=== PATIENT | male | born 1950 | race Caucasian/White ===

== ENCOUNTER 2020-02-06 10:24 | Emergency (ER) | payer MEDICARE, OTHER, SELFPAY ==
[2020-02-06 10:29] VITALS: BP 230/97; PULSE 61; RESP 16; TEMP 36.8; O2SAT 99; BMI 27.4
--- NOTE | 2020-02-06 10:37 | CT_ITS ---
WS: [id number] CT HEAD TECHNIQUE: Noncontrast CT of the head obtained from the skullbase to the vertex. CLINICAL INFORMATION: Symptoms of Acute Stroke COMPARISON: None. DLP: 818.[address] scans at [facility] use at least one of these dose optimization techniques: automat ed exposure control; mA and/or kV adjustment per patient size (includes targeted exams where dose is matched to clinical indication); or iterative reconstruction. FINDINGS: No evidence of intracranial hemorrhage or mass effect. Ventricular system and basal cisterns are foster nt. Moderate small vessel changes with moderate parenchymal volume loss. Chronic lacunar infarcts in the periventricular white matter and buenrostro radiata Paranasal sinuses and mastoid air cells are well aerated. Small retention cyst in the sphenoid sinus. .Normal visualized soft tissues. Benign-appearing cisterna magna. Small chronic lacunar infarct left cerebellum. CT/CT head wo con* [id number] IMPRESSION: 1. No evidence of intracranial hemorrhage or mass effect. 2. Moderate small vessel changes with moderate parenchymal volume loss. 3. Chronic lacunar infarcts in the buenrostro radiata bilaterally and left cerebel lum. 4. Benign-appearing cisterna magna. 5. No acute intracranial findings. Message left for Avery Vasquez DO at 02/06/2020 11:18 AM. Not currently available for verbal report.
--- NOTE | 2020-02-06 10:37 | XRR_ITS ---
PROCEDURE INFORMATION: Exam: XR Chest, 1 View Exam date and time: 02/06/2020 11:03 AM Age: 69 years old Clinical indication: Condition or disease; Other: HTN TECHNIQUE: Imaging protocol: XR of the chest Views: 1 view. COMPARISON: No relevant prior studies available. FINDINGS: Lungs: Unremarkable. No consolidation. Pleural space: Unremarkable. No pleural effusion. No pneumothorax. Heart/Mediastinum: Unremarkable. No cardiomegaly. Bones/joints: Unremarkable. XR/XR chest 1V portable [id number] IMPRESSION: No acute findings.
--- NOTE | 2020-02-06 10:37 | ECG_ITS ---
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 Measurements Intervals [place] Rate: 61 P: 46 [place]: 208 QRS: 45 QRSD: 103 T: 69 QT: 364 QTc: 369 Interpretive Statements SINUS RHYTHM NONSPECIFIC T-WAVE ABNORMALITY No previous ECG available for comparison Electronically Signed On 02-06-2020 12:48:25 CDT by Bella Crowell M.D. [id number] f
[2020-02-06 11:02] LABS: Glucose Point of Care 148 mg/dL (70-110)
[2020-02-06 11:17] VITALS: BP 184/89; PULSE 63; RESP 19; O2SAT 97
[2020-02-06 11:21] LABS: Basophils # 0.1 10^3/uL (0.0-0.1); Eosinophils # 0.2 10^3/uL (0.0-0.8); Eosinophils % 2.6 %; Hematocrit 42.1 % (42.0-52.0); Hemoglobin 14.2 g/dL (11.7-16.6); Lymphocytes # 1.5 10^3/uL (0.8-4.8); Lymphocytes % 26.1 %; Mean Corpuscular HGB Conc 33.7 g/dL (30.0-36.0); Mean Corpuscular Hemoglobin 29.8 pg (28.0-34.0); Mean Corpuscular Volume 88.3 fL (80-94); Mean Platelet Volume 8.9 fL (7.4-10.4); Monocytes # 0.4 10^3/uL (0.2-0.9); Monocytes % 7.5 %; Neutrophils # 3.64 10^3/uL (1.8-7.7); Neutrophils % 62.5 %; Nucleated Red Blood Cells % 0 %; Platelet Count 270 10^3/cmm (130-400); Red Blood Count 4.77 10^6/uL (4.1-5.3); Red Cell Distribution Width 12.5 % (12.1-15.1); White Blood Count 5.8 10^3/uL (4.0-10.0)
[2020-02-06 11:24] LABS: INR 0.96 (0.8-1.2)
[2020-02-06 11:25] LABS: Partial Thromboplastin Time 26.5 SECONDS (23.9-36.7)
[2020-02-06 11:29] LABS: Add Urine Microscopic? NO
[2020-02-06 11:30] LABS: Alanine Aminotransferase 19 U/L (0-41); Albumin Level 4.2 g/dL (3.5-5.2); Alkaline Phosphatase 70 IU/L (40-130); Anion Gap 13.9 (5-19); Aspartate Amino Transferase 16 U/L (0-40); Blood Urea Nitrogen 13 mg/dL (8-23); Calcium 9.1 mg/dL (8.5-10.5); Carbon Dioxide 24 mmol/L (22-29); Chloride 103 mmol/L (98-107); Creatinine Clr Calc Pharmacy 77.8716; Globulin 2.5 g/dL (1.3-4.6); Glomerular Filtration Rate 84.2 mL/min (90-130); Glucose 157 mg/dL (65-115); Osmolality Calculated 287 mOsm/kg (285-295); Potassium 3.9 mmol/L (3.5-5.1); Sodium 137 mmol/L (136-145); Total Bilirubin 0.3 mg/dL (0.15-1.2); Total Protein 6.7 g/dL (6.6-8.7)
[2020-02-06 11:32] VITALS: BP 184/89; PULSE 61; RESP 18; O2SAT 97
[2020-02-06 11:32] LABS: Bilirubin Urine Neg (Negative); Blood Urine Neg (Negative); Glucose Urine UA Norm (Normal); Ketones Urine Negative (Negative); Leukocyte Esterase Urine Negative (Negative); Nitrate Urine Negative (Negative); Protein Urine Neg (Negative); Specific Gravity, Urine 1.015 (1.005-1.030); Urine Appearance Clear (CLEAR); Urine Color Straw (Yellow); Urobilinogen Urine Norm (Negative); pH Urine 6 (5-7)
--- NOTE | 2020-02-06 11:38 | ED_ITS ---
HPI - Neuro Symptoms/Deficit General: Chief Complaint: Neuro Symptoms/Deficit Stated Complaint: right arm tingling and numbness Time Seen by Provider: 02/06/20 10:33 History of Present Illness: HPI Narrative: 69-year-old male presents the emergency room with complaint of right arm numbness has had for the last couple of months intermittently with a question of more in depth find that movement of his neck turning his head side to side or up or down actually exacerbates right arm numbness. Yesterday he was at [facility] she is generally felt kind of odd and weird is he describes it in his legs felt weak he stopped and sat down and immediately felt better. He is not had a recurrence of this since. He has very little to no symptoms now. He does have a history of hypertension he supposed to be on antihypertensives but stopped taking them because of side effects. On presentation emergency room he does have accelerated hypertension. Onset (ago): month(s) Location: left arm History of same: Yes Severity: moderate Quality: numb and tingling Relieving factors: none Exacerbating factors: other (sidbending and rotation of the neck) Context: gradual onset Associated symptoms: Deny chest pain, cough, diaphoresis, fevers/chills, headache(s), anorexia, malaise, nausea, seizures, short of breath, syncope, tingling, vertigo, vomiting, weakness or other Treatments Prior to Arrival: none Review of Systems Const: Denies: malaise or diaphoresis ENMT: Denies: throat pain, ear or mastoid pain, nasal discharge or nasal congestion Card: Denies: chest pain or syncope Resp: Denies: dyspnea, productive cough or non-productive cough GI: Denies: nausea or vomiting : Denies: flank pain, dysuria, urinary frequency or urinary urgency Skin/Breast: Denies: rash or pruritus Neuro: Denies: headache(s) or vertigo Physical Exam Const: COMMON NORMALS: no acute distress GENERAL APPEARANCE: cooperative and comfortable ORIENTATION/CONSCIOUSNESS: Yes awake, Yes oriented to person, Yes oriented to place and Yes oriented to time HENMT: COMMON NORMALS: normocephalic, atraumatic, hearing grossly normal bilaterally, external ears normal, EAC's normal, TM's normal bilaterally, Normal nasal mucous membranes and turbinates present, moist oral mucous membranes and oropharynx normal HEAD & SCALP: normocephalic and atraumatic NOSE: Normal nasal mucous membranes and turbinates present EXTERNAL EAR: Yes external ears normal EXTERNAL AUDITORY CANAL: EAC's normal TYMPANIC MEMBRANE: TM's normal bilaterally Eye: COMMON NORMALS: Equal, round and reactive pupils present, EOMs intact bilaterally, conjunctivae normal and no scleral icterus CONJUNCTIVA: Yes conjunctivae normal PUPIL: Yes Equal, round and reactive pupils present Neck/C-Spine: COMMON NORMALS: full ROM, no lymphadenopathy, supple and no JVD OTHER: Positive Spurling's maneuver with reproduction of radicular left arm pain. Lymph: LYMPHATIC: no lymphadenopathy noted and no lymphedema noted Resp: COMMON NORMALS: normal respiratory effort, No retractions, No use of accessory muscles and clear to auscultation bilaterally AUSCULTATION: clear to auscultation bilaterally Cardio: COMMON NORMALS: no JVD, regular rate, regular rhythm and No murmurs present (Cardio) RATE: regular rate RHYTHM: regular rhythm GI: COMMON NORMALS: Soft to palpation and No hepatosplenomegaly present AUSCULTATION: Yes normoactive bowel sounds PALPATION: Yes Soft to palpation, No Tenderness to palpation present (GI), No Guarding due to palpation present (GI) and Yes No hepatosplenomegaly present Extremity: COMMON NORMALS: normal to inspection, capillary refill normal, no clubbing, cyanosis or edema, no calf tenderness and no pedal edema Neuro: SENSORIUM/ORIENTATION: Yes oriented to person, Yes oriented to place and Yes oriented to time Skin: COMMON NORMALS: no rashes or lesions noted GENERAL SKIN EXAM: no rashes or lesions noted Course Vital Signs: Vital signs: Vital Signs Temperature 98.3 F 02/06/20 10:29 Pulse Rate 61 02/06/20 11:56 Respiratory Rate 19 H 02/06/20 11:56 Blood Pressure 168/83 02/06/20 11:56 Pulse Oximetry 97 02/06/20 11:56 MDM - Neuro Symptoms/Deficit MDM Narrative: Medical decision making narrative: He has no focal neurologic deficits at this point. I cannot find anything to score him on the NIH score with us. I do think he has some radicular arm pain is going to need further evaluation of his cervical spine he does have elevated blood pressure and needs to get that controlled better we started him on amlodipine lisinopril follow-up with his primary care doctor within a week to recheck blood pressure also started on aspirin if has recurrence or worsening symptoms return to the emergency room Lab Data: Labs: Lab Results 02/06/20 02/06/20 02/06/20 Range/Units 10:56 11:00 11:00 WBC 5.8 (4.0-10.0) 10^3/ uL RBC 4.77 (4.1-5.3) 10^6/u L Hgb 14.2 (11.7-16.6) g/dL Hct 42.1 (42.0-52.0) % MCV 88.3 (80-94) fL MCH 29.8 (28.0-34.0) pg MCHC 33.7 (30.0-36.0) g/dL RDW 12.5 (12.1-15.1) % Plt Count 270 (130-400) 10^3/c mm MPV 8.9 (7.4-10.4) fL Neut % (Auto) 62.5 % Lymph % (Auto) 26.1 % Wallace % (Auto) 7.5 % Eos % (Auto) 2.6 % Baso % (Auto) 1.0 % Neut # (Auto) 3.64 (1.8-7.7) 10^3/u L Lymph # (Auto) 1.5 (0.8-4.8) 10^3/u L Wallace # (Auto) 0.4 (0.2-0.9) 10^3/u L Eos # (Auto) 0.2 (0.0-0.8) 10^3/u L Baso # (Auto) 0.1 (0.0-0.1) 10^3/u L Nucleated RBC % (a uto) 0 % Nucleated RBCs # 0.0 /100WBC PT 13.10 (12.1-14.9) SECO NDS INR 0.96 (0.8-1.2) APTT 26.5 (23.9-36.7) SECO NDS Sodium (136-145) mmol/L Potassium (3.5-5.1) mmol/L Chloride (98-107) mmol/L Carbon Dioxide (22-29) mmol/L Anion Gap (5-19) BUN (8-23) mg/dL Creatinine (0.7-1.2) mg/dL GFR Calculation (90-130) mL/min Glucose (65-115) mg/dL POC Glucose 148 (70-110) mg/dL Calculated Osmolal ity (285-295) mOsm/k g Calcium (8.5-10.5) mg/dL Total Bilirubin (0.15-1.2) mg/dL AST (0-40) U/L ALT (0-41) U/L Alkaline Phosphata se (40-130) IU/L Total Protein (6.6-8.7) g/dL Albumin (3.5-5.2) g/dL Globulin (1.3-4.6) g/dL Urine Color (Yellow) Urine Appearance (CLEAR) Urine pH (5-7) Ur Specific Gravit y (1.005-1.030) Urine Protein (Negative) Urine Glucose (UA) (Normal) Urine Ketones (Negative) Urine Blood (Negative) Urine Nitrate (Negative) Urine Bilirubin (Negative) Urine Urobilinogen (Negative) mg/dL Ur Leukocyte Alice ase (Negative) Urine Opiates Scre en (Negative) ng/mL Ur Barbiturates Sc reen (Negative) ng/mL Ur Phencyclidine S crn (Negative) ng/mL Ur Amphetamines Sc reen (Negative) ng/mL U Benzodiazepines Scrn (Negative) ng/mL Urine Cocaine Scre en (Negative) ng/mL U Marijuana (THC) Screen (Negative) ng/mL 02/06/20 02/06/20 02/06/20 Range/Units 11:00 11:25 11:25 WBC (4.0-10.0) 10^3/ uL RBC (4.1-5.3) 10^6/u L Hgb (11.7-16.6) g/dL Hct (42.0-52.0) % MCV (80-94) fL MCH (28.0-34.0) pg MCHC (30.0-36.0) g/dL RDW (12.1-15.1) % Plt Count (130-400) 10^3/c mm MPV (7.4-10.4) fL Neut % (Auto) % Lymph % (Auto) % Wallace % (Auto) % Eos % (Auto) % Baso % (Auto) % Neut # (Auto) (1.8-7.7) 10^3/u L Lymph # (Auto) (0.8-4.8) 10^3/u L Wallace # (Auto) (0.2-0.9) 10^3/u L Eos # (Auto) (0.0-0.8) 10^3/u L Baso # (Auto) (0.0-0.1) 10^3/u L Nucleated RBC % (a uto) % Nucleated RBCs # /100WBC PT (12.1-14.9) SECO NDS INR (0.8-1.2) APTT (23.9-36.7) SECO NDS Sodium 137 (136-145) mmol/L Potassium 3.9 (3.5-5.1) mmol/L Chloride 103 (98-107) mmol/L Carbon Dioxide 24 (22-29) mmol/L Anion Gap 13.9 (5-19) BUN 13 (8-23) mg/dL Creatinine 0.9 (0.7-1.2) mg/dL GFR Calculation 84.2 L (90-130) mL/min Glucose 157 H (65-115) mg/dL POC Glucose (70-110) mg/dL Calculated Osmolal ity 287 (285-295) mOsm/k g Calcium 9.1 (8.5-10.5) mg/dL Total Bilirubin 0.3 (0.15-1.2) mg/dL AST 16 (0-40) U/L ALT 19 (0-41) U/L Alkaline Phosphata se 70 (40-130) IU/L Total Protein 6.7 (6.6-8.7) g/dL Albumin 4.2 (3.5-5.2) g/dL Globulin 2.5 (1.3-4.6) g/dL Urine Color Straw (Yellow) Urine Appearance Clear (CLEAR) Urine pH 6 (5-7) Ur Specific Gravit y 1.015 (1.005-1.030) Urine Protein Neg (Negative) Urine Glucose (UA) Norm (Normal) Urine Ketones Negative (Negative) Urine Blood Neg (Negative) Urine Nitrate Negative (Negative) Urine Bilirubin Neg (Negative) Urine Urobilinogen Norm (Negative) mg/dL Ur Leukocyte Alice ase Negative (Negative) Urine Opiates Scre en Negative (Negative) ng/mL Ur Barbiturates Sc reen Negative (Negative) ng/mL Ur Phencyclidine S crn Negative (Negative) ng/mL Ur Amphetamines Sc reen Negative (Negative) ng/mL U Benzodiazepines Scrn Negative (Negative) ng/mL Urine Cocaine Scre en Negative (Negative) ng/mL U Marijuana (THC) Screen Negative (Negative) ng/mL Discharge Plan Discharge Patient Disposition: Home Clinical Impression: HTN (hypertension), Cervical radicular pain, Transient ischemia Condition: Stable Prescriptions: New amlodipine 5 mg tablet 5 mg PO DAILY Qty: 30 RF: 0 lisinopril 10 mg tablet 10 mg PO DAILY Qty: 30 RF: 0 aspirin 81 mg tablet,chewable 81 mg PO DAILY Qty: 30 RF: 0 Discharge Orders: Discharge Order (Routine); Ordered 02/06/20 Ordered By: Avery Vasquez Activity Restrictions/Additional Instructions: Management will call to get you set up for a MRI of the head and neck. They will also get you set up with a primary care physician. Follow-up with them as soon as you are able to recheck your blood pressure. Also start taking aspirin 81 mg daily. Discharge Date/Time: 02/06/20 11:57 Coding Level of Care Code ED Picc Nurse for Saúl Mixon
[2020-02-06 11:46] LABS: Amphetamines Screen Urine Negative (Negative); Barbiturates Screen Urine Negative (Negative); Benzodiazepines Screen Urine Negative (Negative); Cocaine Screen Urine Negative (Negative); Opiate Screen Urine Negative (Negative); PCP Screen Urine Negative (Negative); THC Screen Urine Negative (Negative)
[2020-02-06 11:56] VITALS: BP 168/83; PULSE 61; RESP 19; O2SAT 97
--- NOTE | 2020-02-08 09:41 | DCPLANNER ---
digital media manager had message to schedule an out patient MRI for patient, and to get patient established with a primary care physician. digital media manager spoke with patient, asked patient if upper caser could set patient up with Dr. Funes at [facility], patient stated that would be fine to get patient set up with Dr. Funes. digital media manager faxed order for MRI to centralized scheduling, will call for appointment information. After MRI is scheduled, upper caser will schedule a follow up appointment for patient with Dr. Funes at [facility] to get established and to go over the results of MRI. digital media manager explained this to patient.
--- NOTE | 2020-02-28 13:35 | DCPLANNER ---
Patient has an MRI scheduled for February at 8:00 - patient is aware of the appointment. java development manager called [facility], spoke with Sally, a follow up appointment was scheduled for Tuesday, March 10, 2020 at 10:[address] Cerna. java development manager called patient and gave him the appointment information. Patient stated that he would attend appointment.
--- NOTE | 2020-03-19 12:15 | DCPLANNER ---
Patient had a MRI scheduled for 03.06.20 - patient attended Patient had follow up scheduled for 03.10.[address] [facility] - patient attended
== END 2020-02-06 11:57 | disposition home or self-care (01) ==
PROVIDERS: Emergency Provider Family Medicine
DX: I99.8 Other disorder of circulatory system (principal); I10 Essential (primary) hypertension; M54.12 Radiculopathy, cervical region; Z79.82 Long term (current) use of aspirin; Z79.899 Other long term (current) drug therapy
CPT/HCPCS: 12345; 36416; 70450; 71045; 80053; 80306; 81003; 82962; 85025; 85610; 85730; 93005; 99284

== ENCOUNTER 2020-03-06 07:33 | Outpatient (CLI) | payer MEDICARE, SELFPAY ==
--- NOTE | 2020-03-06 07:46 | MR_ITS ---
WS: [id number] MRI CERVICAL SPINE HISTORY: NECK PAIN W/RIGHT ARM RADICULOPATHY COMPARISON: None available. Normal cervical alignment with no compression fracture or significant disc space narrowing. Signal within the cord is normal. Retrocerebellar arachnoid cyst is present. Craniocervical junction, C1 and C2 relationship, odontoid process and soft tissues are normal. C2-C3: Normal. C3-C4: Very tiny central disc protrusion and small foraminal osteophytes without stenosis. C4-C5: Disc osteophyte complex extends asymmetrically into the LEFT foramen causing slight displaceme nt of the nerve root and narrowing. C5-C6: Mild asymmetric disc bulging and osteophytic ridging. Mild effacement of the ventral CSF and m ild LEFT foraminal narrowing. C6-C7: Normal. C7-T1: Normal. Paraspinal soft tissue are normal. MR/MR cervical spin wo con* [id number] IMPRESSION: 1. No significant central or foraminal stenosis. 2. Mild disc osteophyte displacement of the LEFT nerve roots at C4-5 and C5-6. No high-grade stenosis. 3. Retrocerebellar arachnoid cyst.
== END 2020-03-06 07:34 | disposition home or self-care (01) ==
PROVIDERS: Visit Provider Family Medicine
DX: M54.2 Cervicalgia (principal); M25.78 Osteophyte, vertebrae; G93.0 Cerebral cysts
CPT/HCPCS: 72141

== ENCOUNTER 2020-06-23 08:09 | Observation (INO) | payer MEDICARE, SELFPAY ==
[2020-06-23] VITALS (20 sets, daily range): BP systolic 158–191; BP diastolic 79–101; PULSE 70–87; RESP 14–27; TEMP 35.2–37.4; O2SAT 95–98; BMI 27.6
--- NOTE | 2020-06-23 08:10 | CT_ITS ---
WS: [id number] CT HEAD NONCONTRAST HISTORY: AMS TECHNIQUE: Contiguous axial imaging performed through the brain in 2.5 mm imaging. Bone and soft tiss ue windows. Sagittal and coronal reformats reviewed. All CT scans at [facility] use at ast one of these dose optimization techniques: automated exposure control; mA and/or kV adjustment pe r patient size (includes targeted exams where dose is matched to clinical indication); or iterative r econstruction. DLP: 850.9 mGy.cm COMPARISON: 02/06/2020 No acute intracranial hemorrhage, midline shift or mass effect. Mild atrophy and mild chronic microvascular ischemic disease. Small bilateral lacunar infarcts in the basal ganglia and buenrostro radiata along with microvascular ischemic disease. Small lacunar infarct in posterior LEFT cerebellum. Ventricles: Normal size with no hydrocephalus. Mild increased density within the middle cerebral arteries is similar to the prior study therefore do not believe this is clot related to an acute infarct. Paranasal sinuses: As visualized are clear. Mastoid air cells: Well pneumatized. Calvarium and scalp: Skull is intact with no soft tissue edema or swelling. CT/CT head wo con* [id number] IMPRESSION: 1. No acute intracranial hemorrhage or edema. 2. Stable lacunar infarcts and microvascular ischemic disease.
--- NOTE | 2020-06-23 08:11 | ECG_ITS ---
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1950 Requested By: Avery Abad Order Number: [id number] Reading MD: REBECCA VERMA Measurements Intervals [place] Rate: 71 P: 236 [place]: 128 QRS: 58 QRSD: 103 T: 50 QT: 391 QTc: 425 Interpretive Statements ECTOPIC ATRIAL RHYTHM ST ELEVATION, PROBABLY EARLY REPOLARIZATION [ST ELEVATION WITH NORMALLY INFLECTED T WAVE] ABNORMAL RHYTHM ECG Compared to ECG 02/06/2020 10:32:14 Ectopic atrial rhythm now present ST (T wave) deviation now present Early repolarization now present Sinus rhythm no longer present T-wave abnormality no longer present Electronically Signed On 06-23-2020 18:29:24 DEPARTMENT SPECIALIST by REBECCA VERMA [id number]
--- NOTE | 2020-06-23 08:18 | ED_ITS ---
HPI - Altered Mental Status General: Chief Complaint: Syncope Stated Complaint: Syncope/Low HR/AMS Time Seen by Provider: 06/23/20 08:10 History of Present Illness: HPI narrative: 69-year-old male brought in via EMS with complaint of altered mental status. He is also bradycardic and EMS reported giving him atropine x2 in the field for heart rate in the 50s. Initially patient was here alone he could not give us much history. Later his arrived. Patient was able to open his eyes follow all commands although he was somewhat groggy and complaining of being dizzy. When the arrived she stated that he had gotten up to go to the bathroom and then called out for her help. When she came to the bathroom he was seated on the toilet leaning onto the counter to hold himself up complaining of feeling dizzy. He had been seen last January had some left-sided symptoms that had already resolved by the time he came in he was discharged home with antihypertensives and aspirin. He was arranged for PCP follow-up where he was started on Eliquis. He had some arm discomfort when he was seen at that ER visit and a CT of his neck had a question of impingement he was discharged home from the ER visit with a plan for a CT MRI head and neck. The MRI neck was done but not to the head. He tells me he still been taking the Eliquis, although he has not taken it today. complaint: altered mental status, confusion and decreased responsiveness Onset (ago): unknown Severity: severe Consistency of symptoms: Waxing and Waning Context: other (History of previous stroke) Associated symptoms: Deny racing thoughts Treatments prior to arrival: other (Bradycardia treated with atropine) Review of Systems Const: Denies: fever(s), chills, body aches, change in appetite, fatigue or malaise Card: Denies: chest pain, edema, dyspnea on exertion or orthopnea Resp: Denies: dyspnea, productive cough or non-productive cough GI: Denies: abdominal pain, nausea, vomiting, hematemesis, coffee ground emesis, diarrhea, constipation, bloating, hematochezia or melena Neuro: Reports: difficulty walking and dizziness [facility] ED PFSH: Medical History HTN (hypertension) Late effects of cerebrovascular disease, dysarthria Multiple lacunar infarcts Family History Other Cancer Social History Smoking and tobacco status: former smoker Alcohol intake: current Alcohol intake frequency: holidays/special occasions only Alcohol type: wine Household members: spouse Marital status: Current occupational status: employed Current occupation: [employer] Physical Exam Const: COMMON NORMALS: no acute distress GENERAL APPEARANCE: cooperative and comfortable HENMT: COMMON NORMALS: normocephalic, atraumatic and hearing grossly normal bilaterally HEAD & SCALP: normocephalic and atraumatic Eye: COMMON NORMALS: Equal, round and reactive pupils present, conjunctivae normal and no scleral icterus CONJUNCTIVA: Yes conjunctivae normal PUPIL: Yes Equal, round and reactive pupils present OTHER: Patient reports worsening dizziness when he opens his eyes Neck/C-Spine: COMMON NORMALS: full ROM, no lymphadenopathy, supple and no JVD Resp: COMMON NORMALS: normal respiratory effort, No retractions, No use of accessory muscles and clear to auscultation bilaterally AUSCULTATION: clear to auscultation bilaterally Cardio: COMMON NORMALS: no JVD, regular rate, regular rhythm and No murmurs present (Cardio) RATE: regular rate RHYTHM: regular rhythm GI: COMMON NORMALS: Soft to palpation and No hepatosplenomegaly present AUSCULTATION: Yes normoactive bowel sounds PALPATION: Yes Soft to palpation, No Tenderness to palpation present (GI), No Guarding due to palpation present (GI) and Yes No hepatosplenomegaly present Extremity: COMMON NORMALS: normal to inspection, capillary refill normal, no clubbing, cyanosis or edema, no calf tenderness and no pedal edema Neuro: ABILIO COMA SCALE: document GCS findings [place] coma scale eye opening: To sound Abilio coma scale verbal response: Confused Abilio coma scale motor response: Obey commands [place] coma scale total score: 13 Skin: COMMON NORMALS: no rashes or lesions noted GENERAL SKIN EXAM: no rashes or lesions noted Course Vital Signs: Vital signs: Vital Signs Temperature 99.4 F 06/23/20 14:49 Pulse Rate 86 06/23/20 19:21 Respiratory Rate 16 06/23/20 19:21 Blood Pressure 163/93 06/23/20 19:21 Pulse Oximetry 96 06/23/20 19:21 MDM - Altered Mental Status MDM Narrative: Medical decision making narrative: Patient improved after he been here at home was able to take give us more detail. He later did tell us that he had been brushing his teeth before this episode hit him. Initially a stroke alert was not called because he was on the apixaban and he described this beginning when he got up. He does not qualify for anticoagulants because he is already on Eliquis. Additionally his stroke score is low. Concern of labyrinthitis versus basilar stroke, given his previous history do suspect that he did have a stroke this morning. His CT did not show any large acute areas or significant change from the one in January. He will need further evaluation including CTA of the head and neck echocardiogram MRI of the head. Discussed with Dr. Aguero orders are written. Lab Data: Labs: Lab Results 06/23/20 06/23/20 06/23/20 Range/Units 08:15 08:15 08:15 WBC 7.2 (4.0-10.0) 10^3/ uL RBC 5.04 (4.1-5.3) 10^6/u L Hgb 14.9 (11.7-16.6) g/dL Hct 45.7 (42.0-52.0) % MCV 90.7 (80-94) fL MCH 29.6 (28.0-34.0) pg MCHC 32.6 (30.0-36.0) g/dL RDW 12.8 (12.1-15.1) % Plt Count 299 (130-400) 10^3/c mm MPV 8.6 (7.4-10.4) fL Neut % (Auto) 59.7 % Lymph % (Auto) 29.2 % Sebastian % (Auto) 5.8 % Eos % (Auto) 3.3 % Baso % (Auto) 1.3 % Neut # (Auto) 4.30 (1.8-7.7) 10^3/u L Lymph # (Auto) 2.1 (0.8-4.8) 10^3/u L Sebastian # (Auto) 0.4 (0.2-0.9) 10^3/u L Eos # (Auto) 0.2 (0.0-0.8) 10^3/u L Baso # (Auto) 0.1 (0.0-0.1) 10^3/u L Nucleated RBC % (a uto) 0 % Nucleated RBCs # 0.0 /100WBC Specimen Type Sample Site ABG pH (7.35-7.45) ABG pCO2 (35-45) mmHg ABG pO2 (80.0-100.0) mmH g ABG HCO3 (22-26) mmol/L ABG O2 Saturation ABG Base Excess (-2.0-2.0) mmol/ L Pablo Test A-a O2 Gradient (5-10) mmHg Hematocrit (42-52) % Hgb O2 Saturation (95-100) % Carboxyhemoglobin (0.4-20.1) %THgb Methemoglobin (0.4-1.5) % Total Hemoglobin (14-18) g/dL Ionized Calcium (1.1-1.4) mmol/L O2 Delivery Device Piper Installer ID Sodium 139 (136-145) mmol/L Potassium 4.5 (3.5-5.1) mmol/L Chloride 104 (98-107) mmol/L Carbon Dioxide 25 (22-29) mmol/L Anion Gap 14.5 (5-19) BUN 15 (8-23) mg/dL Creatinine 1.1 (0.7-1.2) mg/dL GFR Calculation 66.8 L (90-130) mL/min Glucose 184 H (65-115) mg/dL POC Glucose (70-110) mg/dL Calculated Osmolal ity 294 (285-295) mOsm/k g Calcium 9.5 (8.5-10.5) mg/dL Magnesium 2.1 (1.7-2.3) mg/dL Total Bilirubin 0.4 (0.15-1.2) mg/dL AST 14 (0-40) U/L ALT 15 (0-41) U/L Alkaline Phosphata se 76 (40-130) IU/L Troponin T Baselin e 8 (0-15) ng/L Total Protein 7.0 (6.6-8.7) g/dL Albumin 4.4 (3.5-5.2) g/dL Globulin 2.6 (1.3-4.6) g/dL TSH (0.27-4.20) uIU/ mL Urine Color (Yellow) Urine Appearance (CLEAR) Urine pH (5-7) Ur Specific Gravit y (1.005-1.030) Urine Protein (Negative) Urine Glucose (UA) (Normal) Urine Ketones (Negative) Urine Blood (Negative) Urine Nitrate (Negative) Urine Bilirubin (Negative) Urine Urobilinogen (Negative) mg/dL Ur Leukocyte Alice ase (Negative) 06/23/20 06/23/20 06/23/20 Range/Units 08:15 08:20 08:31 WBC (4.0-10.0) 10^3/ uL RBC (4.1-5.3) 10^6/u L Hgb (11.7-16.6) g/dL Hct (42.0-52.0) % MCV (80-94) fL MCH (28.0-34.0) pg MCHC (30.0-36.0) g/dL RDW (12.1-15.1) % Plt Count (130-400) 10^3/c mm MPV (7.4-10.4) fL Neut % (Auto) % Lymph % (Auto) % Sebastian % (Auto) % Eos % (Auto) % Baso % (Auto) % Neut # (Auto) (1.8-7.7) 10^3/u L Lymph # (Auto) (0.8-4.8) 10^3/u L Sebastian # (Auto) (0.2-0.9) 10^3/u L Eos # (Auto) (0.0-0.8) 10^3/u L Baso # (Auto) (0.0-0.1) 10^3/u L Nucleated RBC % (a uto) % Nucleated RBCs # /100WBC Specimen Type Arterial Sample Site Radial, left ABG pH 7.36 (7.35-7.45) ABG pCO2 45.7 H (35-45) mmHg ABG pO2 77.4 L (80.0-100.0) mmH g ABG HCO3 26.0 (22-26) mmol/L ABG O2 Saturation 95.5 ABG Base Excess 0.1 (-2.0-2.0) mmol/ L Pablo Test Pos A-a O2 Gradient 2.4 L (5-10) mmHg Hematocrit 44.3 (42-52) % Hgb O2 Saturation 93.5 L (95-100) % Carboxyhemoglobin 1.1 (0.4-20.1) %THgb Methemoglobin 0.9 (0.4-1.5) % Total Hemoglobin 14.5 (14-18) g/dL Ionized Calcium 1.3 (1.1-1.4) mmol/L O2 Delivery Device Room air Piper Installer ID jmn Sodium 139.0 (136-145) mmol/L Potassium 3.8 (3.5-5.1) mmol/L Chloride (98-107) mmol/L Carbon Dioxide (22-29) mmol/L Anion Gap (5-19) BUN (8-23) mg/dL Creatinine (0.7-1.2) mg/dL GFR Calculation (90-130) mL/min Glucose 177.0 H (65-115) mg/dL POC Glucose 179 H (70-110) mg/dL Calculated Osmolal ity (285-295) mOsm/k g Calcium (8.5-10.5) mg/dL Magnesium (1.7-2.3) mg/dL Total Bilirubin (0.15-1.2) mg/dL AST (0-40) U/L ALT (0-41) U/L Alkaline Phosphata se (40-130) IU/L Troponin T Baselin e (0-15) ng/L Total Protein (6.6-8.7) g/dL Albumin (3.5-5.2) g/dL Globulin (1.3-4.6) g/dL TSH 2.34 (0.27-4.20) uIU/ mL Urine Color (Yellow) Urine Appearance (CLEAR) Urine pH (5-7) Ur Specific Gravit y (1.005-1.030) Urine Protein (Negative) Urine Glucose (UA) (Normal) Urine Ketones (Negative) Urine Blood (Negative) Urine Nitrate (Negative) Urine Bilirubin (Negative) Urine Urobilinogen (Negative) mg/dL Ur Leukocyte Alice ase (Negative) 06/23/20 Range/Units 08:53 WBC (4.0-10.0) 10^3/ uL RBC (4.1-5.3) 10^6/u L Hgb (11.7-16.6) g/dL Hct (42.0-52.0) % MCV (80-94) fL MCH (28.0-34.0) pg MCHC (30.0-36.0) g/dL RDW (12.1-15.1) % Plt Count (130-400) 10^3/c mm MPV (7.4-10.4) fL Neut % (Auto) % Lymph % (Auto) % Sebastian % (Auto) % Eos % (Auto) % Baso % (Auto) % Neut # (Auto) (1.8-7.7) 10^3/u L Lymph # (Auto) (0.8-4.8) 10^3/u L Sebastian # (Auto) (0.2-0.9) 10^3/u L Eos # (Auto) (0.0-0.8) 10^3/u L Baso # (Auto) (0.0-0.1) 10^3/u L Nucleated RBC % (a uto) % Nucleated RBCs # /100WBC Specimen Type Sample Site ABG pH (7.35-7.45) ABG pCO2 (35-45) mmHg ABG pO2 (80.0-100.0) mmH g ABG HCO3 (22-26) mmol/L ABG O2 Saturation ABG Base Excess (-2.0-2.0) mmol/ L Pablo Test A-a O2 Gradient (5-10) mmHg Hematocrit (42-52) % Hgb O2 Saturation (95-100) % Carboxyhemoglobin (0.4-20.1) %THgb Methemoglobin (0.4-1.5) % Total Hemoglobin (14-18) g/dL Ionized Calcium (1.1-1.4) mmol/L O2 Delivery Device Piper Installer ID Sodium (136-145) mmol/L Potassium (3.5-5.1) mmol/L Chloride (98-107) mmol/L Carbon Dioxide (22-29) mmol/L Anion Gap (5-19) BUN (8-23) mg/dL Creatinine (0.7-1.2) mg/dL GFR Calculation (90-130) mL/min Glucose (65-115) mg/dL POC Glucose (70-110) mg/dL Calculated Osmolal ity (285-295) mOsm/k g Calcium (8.5-10.5) mg/dL Magnesium (1.7-2.3) mg/dL Total Bilirubin (0.15-1.2) mg/dL AST (0-40) U/L ALT (0-41) U/L Alkaline Phosphata se (40-130) IU/L Troponin T Baselin e (0-15) ng/L Total Protein (6.6-8.7) g/dL Albumin (3.5-5.2) g/dL Globulin (1.3-4.6) g/dL TSH (0.27-4.20) uIU/ mL Urine Color Yellow (Yellow) Urine Appearance Clear (CLEAR) Urine pH 6.5 (5-7) Ur Specific Gravit y 1.020 (1.005-1.030) Urine Protein Neg (Negative) Urine Glucose (UA) Trace H (Normal) Urine Ketones Negative (Negative) Urine Blood Neg (Negative) Urine Nitrate Negative (Negative) Urine Bilirubin Neg (Negative) Urine Urobilinogen Norm (Negative) mg/dL Ur Leukocyte Alice ase Negative (Negative) Discharge Plan Discharge Patient Disposition: Admitted As Inpatient Admit Provider: Silas Aguero Clinical Impression: Acute CVA (cerebrovascular accident), HTN (hypertension), Mental status alteration, Labyrinthitis Condition: Stable Coding Level of Care Code ED Case Operator for Saúl Mixon Exam Comprehensive NIH stroke score NIHSS Level Of Consciousness - 1a: 1 Level Of Consciousness Questions - 1b: Both Correct Level Of Consciousness Commands - 1c: Both Correct Best Gaze - 2: Normal Visual Torres - 3: No Visual Loss Facial Palsy - 4: Normal Motor Arm Right - 5: No Drift Motor Arm Left - 5: No Drift Motor Leg Right - 6: No Drift Motor Leg Left - 6: No Drift Limb Ataxia - 7: Absent Sensory - 8: Normal Best Language - 9: No Aphasia Dysarthia - 10: Mild/Moderate Dysarthia Extinction And Inattention - 11: 0 Score Total Score: 2
--- NOTE | 2020-06-23 08:22 | PC.NURSE ---
Pt to CT
[2020-06-23 08:41] LABS: Basophils # 0.1 10^3/uL (0.0-0.1); Basophils % 1.3 %; Eosinophils # 0.2 10^3/uL (0.0-0.8); Eosinophils % 3.3 %; Hematocrit 45.7 % (42.0-52.0); Hemoglobin 14.9 g/dL (11.7-16.6); Lymphocytes # 2.1 10^3/uL (0.8-4.8); Lymphocytes % 29.2 %; Mean Corpuscular HGB Conc 32.6 g/dL (30.0-36.0); Mean Corpuscular Hemoglobin 29.6 pg (28.0-34.0); Mean Corpuscular Volume 90.7 fL (80-94); Mean Platelet Volume 8.6 fL (7.4-10.4); Monocytes # 0.4 10^3/uL (0.2-0.9); Monocytes % 5.8 %; Neutrophils % 59.7 %; Nucleated Red Blood Cells % 0 %; Platelet Count 299 10^3/cmm (130-400); Red Blood Count 5.04 10^6/uL (4.1-5.3); Red Cell Distribution Width 12.8 % (12.1-15.1); White Blood Count 7.2 10^3/uL (4.0-10.0)
[2020-06-23 08:43] LABS: ABG PCO2 45.7 mmHg (35-45); ABG PH Result 7.36 (7.35-7.45); Alveolar-Arterial Oxygen Gradi 2.4 mmHg (5-10); Arterial Blood Gas Hematocrit 44.3 % (42-52); Base Excess ABG 0.1 mmol/L (-2.0-2.0); Blood Gas Allen Test Pos; Blood Gas Sample Site Radial, left; Blood Gas Sample Type Arterial; Carboxyhemoglobin 1.1 %THgb (0.4-20.1); HGB O2 Sat 93.5 % (95-100); Ionized Calcium Level - ABG 1.3 mmol/L (1.1-1.4); Methemoglobin 0.9 % (0.4-1.5); Oxygen Device ROOM AIR; Oxygen Saturation ABG 95.5; PO2 ABG 77.4 mmHg (80.0-100.0); Potassium Level - ABG 3.8 mmol/L (3.5-5.0); Total Hemoglobin 14.5 g/dL (14-18)
[2020-06-23] MEDS: ondansetron 2 mg/ML SDV 2 mL 4 MG IVP ×2 (08:44→12:26)
[2020-06-23 08:56] LABS: Troponin(5th) Baseline 8 ng/L (0-15)
[2020-06-23 08:58] LABS: Alanine Aminotransferase 15 U/L (0-41); Albumin Level 4.4 g/dL (3.5-5.2); Alkaline Phosphatase 76 IU/L (40-130); Anion Gap 14.5 (5-19); Aspartate Amino Transferase 14 U/L (0-40); Blood Urea Nitrogen 15 mg/dL (8-23); Calcium 9.5 mg/dL (8.5-10.5); Carbon Dioxide 25 mmol/L (22-29); Chloride 104 mmol/L (98-107); Globulin 2.6 g/dL (1.3-4.6); Glomerular Filtration Rate 66.8 mL/min (90-130); Glucose 184 mg/dL (65-115); Magnesium 2.1 mg/dL (1.7-2.3); Osmolality Calculated 294 mOsm/kg (285-295); Potassium 4.5 mmol/L (3.5-5.1); Sodium 139 mmol/L (136-145); Total Bilirubin 0.4 mg/dL (0.15-1.2)
[2020-06-23 08:58] LABS: Add Urine Microscopic? NO
[2020-06-23] MEDS: enalaprilat 1.25 mg/mL Inj IVP (09:00)
[2020-06-23] MEDS: amlodipine 5 mg Tablet PO (09:00)
[2020-06-23 09:04] LABS: Glucose Urine UA Trace (Normal); Protein Urine Neg (Negative); Urine Appearance Clear (CLEAR); Urine Color Yellow (Yellow); pH Urine 6.5 (5-7)
[2020-06-23 09:05] LABS: Bilirubin Urine Neg (Negative); Blood Urine Neg (Negative); Ketones Urine Negative (Negative); Leukocyte Esterase Urine Negative (Negative); Nitrate Urine Negative (Negative); Urobilinogen Urine Norm (Negative)
--- NOTE | 2020-06-23 09:21 | XRR_ITS ---
PROCEDURE INFORMATION: Exam: XR Chest Exam date and time: 06/23/2020 9:47 AM Age: 69 years old Clinical indication: Other: Syncope, low hr; Additional info: TIA TECHNIQUE: Imaging protocol: XR of the chest Views: 1 view. COMPARISON: CR XR chest 1V portable [id number] 02/06/2020 10:58 AM FINDINGS: Lungs: Unremarkable. No consolidation. Pleural spaces: Unremarkable. No pleural effusion. No pneumothorax. Heart/Mediastinum: Unremarkable. No cardiomegaly. Bones/joints: Unremarkable. XR/XR chest 1V portable [id number] IMPRESSION: No acute findings.
--- NOTE | 2020-06-23 09:22 | CT_ITS ---
WS: [id number] CTA HEAD AND NECK TECHNIQUE: Contrast enhanced CTA of the head and neck with coronal and sagittal reformatted images an d maximum intensity projection (MIP) images. NASCET criteria utilized. CLINICAL INFORMATION: TIA - please do enroute to the floor COMPARISON: CT head earlier today DLP: 2375.[address] scans at [facility] use at least one of these dose optimization techniques: automat ed exposure control; mA and/or kV adjustment per patient size (includes targeted exams where dose is matched to clinical indication); or iterative reconstruction. FINDINGS: Moderate small vessel changes. Moderate volume loss. Chronic lacunar infarcts in the perive ntricular white matter and basal ganglia. RIGHT: Right common carotid artery is patent. Moderate calcified atheromatous disease right carotid b ulb extending into the ICA. Stenosis measures approximately 50-60%. Eccentric calcified atheromatous plaque. LEFT: Left common carotid artery is patent. High-grade stenosis with near occlusion left proximal ICA with eccentric calcified atheromatous plaque. Tiny residual string-like lumen left proximal ICA. Red uced caliber left ICA to the skull base which remains patent. Right dominant vertebral artery is patent. Left ICA is occluded proximally. Reconstitution of the mid left vertebral artery. Proximal basilar artery is patent. Atheromatous plaque with severe stenosis in the left proximal subclavian artery. Mid and distal subcl nydia artery are patent. This is proximal to the vertebral artery origin and subclavian steal could b e further evaluated with ultrasound. INTRACRANIAL CTA: Basilar artery is patent. Moderate segmental atheromatous disease in the proximal basilar artery whic h remains patent.Persistent left CYTOGENETICIST. Normal vascularity to the CYTOGENETICIST territory bilaterally. Both ICAs are patent at the skull base. Patent anterior communicating artery. Normal vascularity to t he AMARIS and MCA territories bilaterally. No evidence of high-grade proximal flow limiting stenosis. Mastoid air cells and paranasal sinuses are well aerated. CT/CT angio headneck* [id number] IMPRESSION: 1. High-grade proximal left ICA stenosis with near occlusion with a tiny strin g-like lumen. Reduced caliber left ICA to the skull base. 2. Right proximal ICA stenosis measuring 50-60%. 3. Right dominant vertebral artery. Left vertebral artery is occluded proximal ly and reconstitutes distally. 4. Moderate segmental atheromatous disease in the proximal basilar artery whic h remains patent. 5. Normal vascularity to the AMARIS and MCA territories bilaterally. No flow-limi ting stenosis. 6. Atheromatous plaque with moderate to severe stenosis in the left proximal s ubclavian artery. Mid and distal subclavian artery are patent. This is proximal to the vertebral artery origin and subclavian steal could be further evaluated with ultrasound. 7. A few prominent cervical lymph nodes in the neck bilaterally nonspecific bu t may be reactive.
--- NOTE | 2020-06-23 09:45 | MR_ITS ---
WS: [id number] MRI HEAD WITHOUT CONTRAST TECHNIQUE: Sagittal T1, T2 axial, T2 axial FLAIR, axial and coronal T1 images, axial susceptibility w eighted imaging, axial diffusion weighted images, and coronal T2 images were obtained. CLINICAL INFORMATION: severe headache, dizziness, possible post circ CVA FINDINGS: Diffuse restricted diffusion involving the inferior left cerebellar hemisphere extending into the cer ebellar tonsil consistent with acute ischemia. Mild associated edema with mild localized mass effect. Minimal mass effect on the brachium pontis. Fourth ventricle is patent. No hydrocephalus. Incidental benign lobulated arachnoid cyst posterior fossa measuring 2.9 x 4.1 cm. Moderate small ves ricardo changes. Moderate parenchymal volume loss. Chronic lacunar infarct left cerebellum. Chronic lacun ar infarcts in the left periventricular white matter. Small vessel changes in the thelma. Normal optic chiasm and pituitary infundibulum. Mild to moderate symmetric atrophy involving the temp oral lobes and hippocampal formations. Normal cavernous sinuses and Meckel's cave. Slow flow in the l eft cervical ICA at the skull base consistent with high-grade proximal ICA stenosis seen on the CTA. No hemosiderin on the susceptibly weighted images. MR/MR head wo con* [id number] IMPRESSION: 1. Diffuse restricted diffusion within the left cerebellum extending into the cerebellar tonsil consistent with acute ischemia. 2. Mild edema in the left cerebellum. Normal fourth ventricle. 3. Moderate small vessel changes with moderate parenchymal volume loss. 4. Chronic lacunar infarcts involving the left buenrostro radiata and left cerebel lum. 5. Small vessel changes in the thelma. Discussed with Silas Aguero MD at 06/23/2020 2:26 PM.
--- NOTE | 2020-06-23 09:47 | P.HP_ITS ---
Providers/Chief Complaint Primary Care Provider: Dalton Cerna MD Chief Complaint: Syncope/Low HR History of Present Illness Dony Padilla is a 69 year old male who presents via EMS with complaints of lethargy, headache, nausea. He reports he was in his normal state of health until this morning around 10 till 7 when while brushing his teeth he got very dizzy, and a headache. He ultimately vomited 6-8 times. He then sat down on the toilet and called for his . He eventually slumped to the floor. He does not believe he passed out but is not sure. He reports he currently has a headache, mainly on the left side. This makes his left eye and neck hurt as well. He denies any recent fevers or other illness. He reports when he got ill the entire room seem to spin. Currently, he still has headache and neck pain. He relates that he cannot go open his eyes without getting nauseated and dizzy. relates that he was lethargic earlier but is somewhat better currently. He has not had Covid, nor exposure to it. He reports no chest discomfort associated with the event. He reports he occasionally has difficulty getting u rine out, but denies any burning with urination. While in route he was apparently nauseated and had decreased responsiveness so he received atropine twice when heart rate was noted to be in the 50s. According to nursing the emergency department this was given secondary to symptomatic bradycardia. While in the emergency department an elevated blood pressure was noted. He received Norvasc, and enalapril. He is being warmed as his core temperature was 95.7 on arrival. reports he was not in a cold environment. It appears he was placed on apixaban for stroke prevention. I do not see any h istory of atrial fibrillation. Review of Systems 2 General: Reports: 10 or more systems reviewed and unremarkable except in HPI and below Const: Denies: fever(s) or chills Eyes: Reports: other (Right eye pain and dizziness when opening eyes); Denies: change in vision ENMT: Denies: throat pain Card: Reports: lightheadedness; Denies: chest pain Resp: Denies: dyspnea GI: Reports: nausea and vomiting; Denies: abdominal pain, hematochezia or melena : Reports: difficulty starting urination; Denies: flank pain Musc: Reports: neck pain Skin/Breast: Denies: rash Neuro: Reports: headache(s) Psych: Denies: anxiety Endo: Denies: polyuria Emilio/Lymph: Denies: easy bruising All/Imm: Denies: urticaria Medications/Allergies Home Medications Medication Instructions Recorded Confirmed Last Taken Type amlodipine 5 mg tablet 5 mg PO DAILY #30 tab 03/10/20 06/23/20 06/22/20 Rx apixaban 2.5 mg tablet 2.5 mg PO BID #60 tab 03/10/20 06/23/20 06/22/20 Rx aspirin 81 mg tablet,delayed 81 mg PO DAILY 03/10/20 06/23/20 06/22/20 History release lisinopril 10 mg tablet 10 mg PO DAILY #30 tab 03/24/20 06/23/20 06/22/20 Rx Allergies Allergy/AdvReac Type Severity Reaction Status Date / Time No Known Allergies Allergy Verified 03/10/20 10:59 PFSH Acute PFSH: Medical History HTN (hypertension) Late effects of cerebrovascular disease, dysarthria Multiple lacunar infarcts Family History Other Cancer Social History Smoking and tobacco status: former smoker Alcohol intake: current Alcohol intake frequency: holidays/special occasions only Alcohol type: wine Household members: spouse Marital status: Current occupational status: employed Current occupation: [employer] Vitals/I&O/Wt Last Vital Signs Temp 95.3 F L 06/23/20 08:10 Pulse 76 06/23/20 09:39 Resp 15 06/23/20 09:39 BP 158/87 06/23/20 09:39 Pulse Ox 98 06/23/20 09:39 Weight last 48 hrs Weight 77.564 kg Physical Exam Narrative: EXAM NARRATIVE: General exam is a white male, resting on a hospital gurney, who keeps his eyes closed reporting it makes him nauseous to open them. Complains of a headache. HEENT: Pupils equally round, reactive. Some horizontal nystagmus is noted. Oropharynx is clear Neck is supple no lymphadenopathy or thyromegaly Cardiovascular regular rate and rhythm without murmur, no S3 or S4 Lungs clear no wheezing or crackles Abdomen is soft with positive bowel sounds. No obvious organomegaly was deferred Extremities no cyanosis clubbing or edema, cap refill brisk Skin no rash Neurologic: No focal weakness. Globally weak and complains of nausea with any movement. Negative Kernig's. I was unable to ambulate him. No obvious cerebellar function abnormalities with afkach-on-sazp and chapman to heel on either side. No slurred speech. Data : 06/23/20 08:15 06/23/20 08:15 Other data: ABG demonstrates a pH 7.36, PCO2 46, PO2 77. LFTs normal. Troponin normal. TSH I ordered is normal. Magnesium is normal. Calcium is normal. Urinalysis negative Head CT demonstrates no intracranial hemorrhage. Lacunar infarcts and microvascular disease are unchanged. Has small bilateral lacunar infarcts in the basal ganglia and buenrostro radiata along with 1 in the left cerebellum Previous cervical spine MRI demonstrated retrocerebellar arachnoid cyst, ost eophyte displacement of nerve roots C4-C5 and C5-C6 on the left which was mild. No foraminal stenosis. This was done March 06, 2020 EKG demonstrates sinus rhythm, normal axis, no acute changes Chest x-ray per my read demonstrates some atherosclerotic disease in the aorta. Otherwise no infiltrate. No acute findings. A&P Assessment and plan (1) Mental status alteration: Patient is not currently back to normal. He is able to answer questions but appears somewhat lethargic. This was acute in onset occurring around 7 AM and associated with headache and intense dizziness and vomiting. Although labyrinthitis may present with dizziness and vomiting as well as vertigo it is unusual to have a severe headache with this. Initial CT is negative. This potentially could also be a posterior circulation CVA. He is on Eliquis, which would certainly negate the ability to give TPA. At this point will initiate fluids for hydration. Control of nausea. Check CTA head and neck, MRI head It appears the Eliquis was initiated for stroke prevention, but the patient does not have a history of atrial fibrillation. We will discontinue this. Continue aspirin.Initiate statin. Start Plavix. Check lipid profile in the morning. TSH has been checked and normal. Status: Acute (2) Headache: See notations above Status: Acute (3) Syncope: Unsure if this was syncope or presyncope. Check echocardiogram Telemetry Status: Acute (4) HTN (hypertension): Hold antihypertensives currently until delineation of potential for CVA is obtained. Status: Acute (5) Hypothermia: Rewarm Status: Acute Additional A&P Information Elevated glucose, check A1C History of prior CVA. Aspirin, statin. Check lipid profile as above History of neck pain, with degenerative joint disease Full code Lovenox for DVT prophylaxis Attestations Medical Necessity Statement*: Will initially placed under observation status while further work-up is obtained. If it is confirmed this is a CVA will likely need to be converted to admission. Coding Level of Care Code Acute Record Tester for Gabrielg Fwd Diagnoses Mental status alteration R41.82 Headache R51.9 Syncope R55 HTN (hypertension) I10 Hypothermia T68.XXXA
[2020-06-23 09:50] LABS: Thyroid Stimulating Hormone 2.34 uIU/mL (0.27-4.20)
--- NOTE | 2020-06-23 10:11 | ECG_ITS ---
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: : 1950 Requested By: Avery Abad Order Number: [id number] Reading MD: REBECCA VERMA Measurements Intervals [place] Rate: 74 P: 49 MA: 236 QRS: 31 QRSD: 95 T: 44 QT: 356 QTc: 396 Interpretive Statements SINUS RHYTHM WITH FIRST DEGREE AV BLOCK Compared to ECG 06/23/2020 08:13:32 First degree AV block now present Ectopic atrial rhythm no longer present ST (T wave) deviation no longer present Early repolarization no longer present Electronically Signed On 06-23-2020 18:30:41 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
[2020-06-23] MEDS: iohexol 350 mg/mL 100 mL Btl IV (10:29)
--- NOTE | 2020-06-23 10:51 | USCV_ITS ---
PadillaDony Age: 69 Gender: M : 1950 Exam Date: 06/23/2020 15:29 Ordering Phys: Avery Vasquez DO Technologist: Sabino Hector Exam Location: [facility] Indication: HTN/TIA BP: 162 / 87 HR: 77 Rhythm: Sinus Technical Quality: Fair MEASUREMENTS (Male / Female) Normal Values 2D ECHO LV Diastolic Diameter PLAX 5.0 cm 4.2 - 5.9 / 3.9 - 5.3 cm LV Systolic Diameter PLAX 2.9 cm IVS Diastolic Thickness 0.8 cm 0.6 - 1.0 / 0.6 - 0.9 cm IVS Systolic Thickness 1.2 cm LVPW Diastolic Thickness 1.2 cm 0.6 - 1.0 / 0.6 - 0.9 cm LVPW Systolic Thickness 1.4 cm LVOT Diameter 2.0 cm LV Ejection Fraction 2D Teich 72.5 % LV Ejection Fraction MOD 2C 74.5 % LV Ejection Fraction 2C AL 74.8 % LA Diameter 3.6 cm M-MODE LV Diastolic Diameter MM 4.7 cm 4.2 - 5.9 / 3.9 - 5.3 cm LV Systolic Diameter MM 2.5 cm LV Ejection Fraction MM Teich 78.2 % IVS Diastolic Thickness MM 0.9 cm 0.6 - 1.0 / 0.6 - 0.9 cm IVS Systolic Thickness MM 1.7 cm LVPW Diastolic Thickness MM 0.8 cm 0.6 - 1.0 / 0.6 - 0.9 cm LVPW Systolic Thickness MM 1.3 cm RV Diastolic Diameter MM 1.3 cm Aortic Annulus Diameter 4.0 cm LA Ao Ratio MM 0.9 MV E Point Septal Separation 0.5 cm DOPPLER AV Peak Velocity 146.0 cm/s LVOT Peak Velocity 104.0 cm/s AV Area Cont Eq vti 1.9 cm squared AV Area Cont Eq pk 2.3 cm squared MV Area PHT 5.0 cm squared Mitral E to A Ratio 0.8 MV E' Velocity 43.5 cm/s Mitral E to MV E' Ratio 8.7 Mitral E to LV E' Lateral Ratio 7.4 Mitral E to LV E' Septal Ratio 10.6 TR Peak Velocity 141.0 cm/s TR Peak Gradient 8.0 mmHg TV Peak E Velocity 85.0 cm/s Right Atrial Pressure 3.0 mmHg Pulmonary Artery Systolic Pressu 11.0 mmHg PV Peak Velocity 81.0 cm/s FINDINGS Left Ventricle Normal left ventricular size and systolic function, EF 64 %. No regional wall motion abnormalities. Grade I/IV diastolic dysfunction (abnormal relaxation filling pattern), normal to mildly elevated filling pressures. Right Ventricle The right ventricle is normal in size and function. Right Atrium Possibly of normal size Left Atrium Possibly of normal size Mitral Valve Trace to mild mitral valve regurgitation. Aortic Valve Thickened aortic valve. Tricuspid Valve Could not be visualized well Pulmonic Valve Pulmonic valve not well visualized. Pericardium Normal pericardium without effusion. Aorta Normal ascending aorta dimension. CONCLUSIONS Normal left ventricular size and systolic function, EF 64 %. No regional wall motion abnormalities. Type I diastolic dysfunction. Minimally thickened aortic valve Trace to mild mitral valve regurgitation. There is no pericardial effusion. There are no intracardiac masses. Technically difficult study because of the poor ultrasonic window. Dr Stefano Page MD FACC (Electronically Signed) Final Date: 23 June 2020 21:18 S
[2020-06-23 11:19] LABS: Estmated Average Glucose 103; Hemoglobin A1C 5.2 % (4.0-6.0)
[2020-06-23 11:25] LABS: Troponin 5 2HR 8.43 ng/L (0-15); Troponin 5 2HR Delta 0.43 ABS# (0-10)
[2020-06-23] MEDS: aspirin 325 mg EC Tablet PO (12:00)
[2020-06-23] MEDS: enoxaparin 40 mg/0.4 mL Syringe SUBCUT (12:00)
[2020-06-23] MEDS: sodium chloride 0.9% 1,000 ML 100 ML IV ×2 (12:01→14:33)
[2020-06-23] MEDS: HYDROcodone-acetaminophen 5-325 mg Tablet 1 TAB PO (12:05)
--- NOTE | 2020-06-23 14:11 | ECG_ITS ---
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1950 Requested By: Avery Abad Order Number: [id number] Reading MD: REBECCA VERMA Measurements Intervals [place] Rate: 71 P: 46 AK: 224 QRS: 28 QRSD: 94 T: 40 QT: 352 QTc: 384 Interpretive Statements SINUS RHYTHM WITH FIRST DEGREE AV BLOCK MINIMAL VOLTAGE CRITERIA FOR LVH, CONSIDER NORMAL VARIANT [MEETS CRITERIA IN ONE OF: R(aVL), S(V1), R(V5), R(V5/V6)+S(V1)] Compared to ECG 06/23/2020 11:50:11 No significant changes Electronically Signed On 06-23-2020 18:30:06 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
--- NOTE | 2020-06-23 14:34 | PM.TDS ---
Transfer Summary Providers Date of Admission: 06/23/20 09:22 Date of Discharge: 06/23/20 Attending Provider at Admission: Silas Aguero MD Attending Provider at Transfer: Silas Aguero MD Primary Care Provider: Dalton Cerna MD Anticipated Date of Transfer: Anticipated date of transfer: 06/23/20 Receiving Facility & Provider: Receiving Provider: [Dr. Ramos] Receiving facility: [[facility]] Diagnoses at Discharge Discharge Diagnosis (1) Mental status alteration: Status: Acute (2) Headache: Status: Acute (3) Syncope: Status: Acute (4) HTN (hypertension): Status: Acute (5) Hypothermia: Status: Acute Reason for Visit Reason for Visit: Syncope/Low HR Hospital Course Hospital Course Dony is a 69-year-old male admitted from home with acute onset of headache, nausea, dizziness this morning around 6:50 AM while he was up brushing his teeth. Please see history and physical regarding details of this. He was screened in the emergency department with CT of his head. He was not ambulated but had no other focal weakness. Cerebellar signs with ozeace-hq-kigf and lpac-mj-cdtl were not abnormal. He was on Eliquis at home for stroke prevention as well as aspirin. Last dose was last night. He was admitted to the hospital, and a CTA head and neck were done in route to the floor. This demonstrated a high-grade proximal left ICA stenosis with near occlusion. Right ICA approximately 50 to 60% narrowed. Right vertebral was dominant, left vertebral occluded and reconstituted distally. Moderate severe to severe stenosis was also noted in his left subclavian. Secondary to the significance of his symptoms and concern about posterior circulation etiology an MRI was obtained. This demonstrated a rather large cerebellar CVA on the left, PICA territory. Edema was already noted. Secondary to significance of cerebellar CVA with edema and no availability of neurosurgical intervention if needed transferred of patient was arranged to [facility] in [place]. Risks and benefits of transfer were discussed with the patient and his . As they are Jehovah's witnesses, they want to make sure that no blood would be transfused but had no other restrictions regarding care. Physical Exam Narrative: EXAM NARRATIVE: General exam complaining of a left-sided headache and nausea when he opens his eyes Neck is supple no lymphadenopathy or thyromegaly Cardiovascular regular rate and rhythm without murmur Lungs clear Abdomen is soft positive bowel sounds Extremities no cyanosis clubbing or edema Neurologic: No obvious focal deficits currently. Some horizontal nystagmus is noted. No obvious cerebellar signs noted with jwlyvw-qm-mnwp and yvor-qw-ldmy. TS Data Data Completed and Pending: Completed Studies During Hospitalization Category Date Time Status CT angio headneck * [id number] Urge nt Cat Scan 06/23/20 09:[address] head wo con* 7 0450 Stat Cat Scan 06/23/20 08:10 Completed XR chest 1V ken ble [id number] Routine Exams 06/23/20 09:21 Completed MR head wo con* 7 0551 Urgent MRI 06/23/20 09:45 Taken Pending at discharge Category Date Time Status Complete Blood Co unt w/Auto AM LABS Lab 06/24/20 04:00 Ordered Comprehensive Met abolic Panel AM LA BS Lab 06/24/20 04:00 Ordered Lipid Panel AM LA BS Lab 06/24/20 04:00 Ordered Troponin(5th) 6 h our. Timed Lab 06/23/20 14:19 Received CV echo complete* [id number] Routine Ultrasound 06/23/20 10:51 Ordered Labs from last 24 hours 06/23/20 06/23/20 06/23/20 14:19 10:41 10:41 WBC RBC Hgb Hct MCV MCH MCHC RDW Plt Count MPV Neut % (Auto) Lymph % (Auto) [place] % (Auto) Eos % (Auto) Baso % (Auto) Neut # (Auto) Lymph # (Auto) [place] # (Auto) Eos # (Auto) Baso # (Auto) Nucleated RBC % (a uto) Nucleated RBCs # Specimen Type Sample Site ABG pH ABG pCO2 ABG pO2 ABG HCO3 ABG O2 Saturation ABG Base Excess Pablo Test A-a O2 Gradient Hematocrit Hgb O2 Saturation Carboxyhemoglobin Methemoglobin Total Hemoglobin Ionized Calcium O2 Delivery Device Broth Setter ID Sodium Potassium Chloride Carbon Dioxide Anion Gap BUN Creatinine GFR Calculation Glucose Estimat Average Gl ucose 103 Hemoglobin A1c 5.2 Calculated Osmolal ity Calcium Magnesium Total Bilirubin AST ALT Alkaline Phosphata se Troponin T Baselin e Troponin T 120 Min [place] 8.43 Delta Troponin T 0.43 Troponin T Hi Sens 6Hr Pending Troponin T Hi Sens 6Hr Delta Pending Total Protein Albumin Globulin TSH Urine Color Urine Appearance Urine pH Ur Specific Gravit y Urine Protein Urine Glucose (UA) Urine Ketones Urine Blood Urine Nitrate Urine Bilirubin Urine Urobilinogen Ur Leukocyte Alice ase 06/23/20 06/23/20 06/23/20 08:53 08:31 08:15 WBC RBC Hgb Hct MCV MCH MCHC RDW Plt Count MPV Neut % (Auto) Lymph % (Auto) [place] % (Auto) Eos % (Auto) Baso % (Auto) Neut # (Auto) Lymph # (Auto) [place] # (Auto) Eos # (Auto) Baso # (Auto) Nucleated RBC % (a uto) Nucleated RBCs # Specimen Type Arterial Sample Site Radial, left ABG pH 7.36 ABG pCO2 45.7 H ABG pO2 77.4 L ABG HCO3 26.0 ABG O2 Saturation 95.5 ABG Base Excess 0.1 Pablo Test Pos A-a O2 Gradient 2.4 L Hematocrit 44.3 Hgb O2 Saturation 93.5 L Carboxyhemoglobin 1.1 Methemoglobin 0.9 Total Hemoglobin 14.5 Ionized Calcium 1.3 O2 Delivery Device Room air Broth Setter ID jmn Sodium 139.0 Potassium 3.8 Chloride Carbon Dioxide Anion Gap BUN Creatinine GFR Calculation Glucose 177.0 H Estimat Average Gl ucose Hemoglobin A1c Calculated Osmolal ity Calcium Magnesium Total Bilirubin AST ALT Alkaline Phosphata se Troponin T Baselin e Troponin T 120 Min [place] Delta Troponin T Troponin T Hi Sens 6Hr Troponin T Hi Sens 6Hr Delta Total Protein Albumin Globulin TSH 2.34 Urine Color Yellow Urine Appearance Clear Urine pH 6.5 Ur Specific Gravit y 1.020 Urine Protein Neg Urine Glucose (UA) Trace H Urine Ketones Negative Urine Blood Neg Urine Nitrate Negative Urine Bilirubin Neg Urine Urobilinogen Norm Ur Leukocyte Alice ase Negative 06/23/20 06/23/20 06/23/20 08:15 08:15 08:15 WBC 7.2 RBC 5.04 Hgb 14.9 Hct 45.7 MCV 90.7 MCH 29.6 MCHC 32.6 RDW 12.8 Plt Count 299 MPV 8.6 Neut % (Auto) 59.7 Lymph % (Auto) 29.2 [place] % (Auto) 5.8 Eos % (Auto) 3.3 Baso % (Auto) 1.3 Neut # (Auto) 4.30 Lymph # (Auto) 2.1 [place] # (Auto) 0.4 Eos # (Auto) 0.2 Baso # (Auto) 0.1 Nucleated RBC % (a uto) 0 Nucleated RBCs # 0.0 Specimen Type Sample Site ABG pH ABG pCO2 ABG pO2 ABG HCO3 ABG O2 Saturation ABG Base Excess Pablo Test A-a O2 Gradient Hematocrit Hgb O2 Saturation Carboxyhemoglobin Methemoglobin Total Hemoglobin Ionized Calcium O2 Delivery Device Broth Setter ID Sodium 139 Potassium 4.5 Chloride 104 Carbon Dioxide 25 Anion Gap 14.5 BUN 15 Creatinine 1.1 GFR Calculation 66.8 L Glucose 184 H Estimat Average Gl ucose Hemoglobin A1c Calculated Osmolal ity 294 Calcium 9.5 Magnesium 2.1 Total Bilirubin 0.4 AST 14 ALT 15 Alkaline Phosphata se 76 Troponin T Baselin e 8 Troponin T 120 Min [place] Delta Troponin T Troponin T Hi Sens 6Hr Troponin T Hi Sens 6Hr Delta Total Protein 7.0 Albumin 4.4 Globulin 2.6 TSH Urine Color Urine Appearance Urine pH Ur Specific Gravit y Urine Protein Urine Glucose (UA) Urine Ketones Urine Blood Urine Nitrate Urine Bilirubin Urine Urobilinogen Ur Leukocyte Alice ase Vitals: Last Vital Signs Temp 97.1 F L 06/23/20 13:28 Pulse 74 06/23/20 12:15 Resp 16 06/23/20 12:15 BP 169/90 06/23/20 12:15 Pulse Ox 96 06/23/20 12:15 TS Medications Medications Home Medications amlodipine 5 mg tablet 5 mg PO DAILY #30 tab 03/10/20 [Rx Confirmed 06/23/20] apixaban 2.5 mg tablet 2.5 mg PO BID #60 tab 03/10/20 [Rx Confirmed 06/23/20] aspirin 81 mg tablet,delayed release 81 mg PO DAILY 03/10/20 [History Confirmed 06/23/20] lisinopril 10 mg tablet 10 mg PO DAILY #30 tab 03/24/20 [Rx Confirmed 06/23/20] Active Medications Acetaminophen (Acetaminophen 325 Mg Tablet) 650 mg PO Q6H PRN PRN Reason: Mild/Mod Pain Or Temp >/= 101 Hydrocodone Bitart/Acetaminophen (Hydrocodone-Acetaminophen 5-325 Mg Tablet) 1 tab PO Q4H PRN PRN Reason: MODERATE TO SEVERE PAIN Last Admin: 06/23/20 12:05 Dose: 1 tab Documented by: Aspirin (Aspirin 325 Mg Ec Tablet) 325 mg PO DAILY [facility] Last Admin: 06/23/20 12:00 Dose: 325 mg Documented by: Atorvastatin Calcium (Atorvastatin 40 Mg Tablet) 40 mg PO BEDTIME [facility] Enoxaparin Sodium (Enoxaparin 40 Mg/0.4 Ml Syringe) 40 mg SUBCUT Q24H [facility] Last Admin: 06/23/20 12:00 Dose: 40 mg Documented by: Sodium Chloride (Sodium Chloride 0.9%) 1,000 mls @ 100 mls/hr IV .Q10H [facility] Last Admin: 06/23/20 14:33 Dose: 100 mls/hr Documented by: Morphine Sulfate (Morphine 4 Mg/Ml Sdv 1 Ml) 2 mg IVP Q4H PRN PRN Reason: SEVERE PAIN Ondansetron HCl (Ondansetron 2 Mg/Ml Sdv 2 Ml) 4 mg IVP Q6H PRN PRN Reason: NAUSEA AND VOMITING Last Admin: 06/23/20 12:26 Dose: 4 mg Documented by: Pantoprazole Sodium (Pantoprazole Dr 40 Mg Tablet) 40 mg PO DAILY [facility] Discharge Plan Discharge Patient Disposition: Xfer Short-Term Hosp Condition: Stable Prescriptions: No Action aspirin 81 mg tablet,delayed release (DR/EC) 81 mg PO DAILY RF: 0 apixaban 2.5 mg tablet 2.5 mg PO BID Qty: 60 RF: 5 amlodipine 5 mg tablet 5 mg PO DAILY Qty: 30 RF: 5 lisinopril 10 mg tablet 10 mg PO DAILY Qty: 30 RF: 2 Discharge Orders: Transfer Out of Facility (Order); Ordered 06/23/20 Ordered By: Silas Aguero Referrals: Dalton Cerna MD [Primary Care Provider] - Transfer Attestations Time Spent in Transfer Care*: greater than 30 min Quality Metrics Clinical Quality Measures: During this hospital stay, did patient experience: Stroke Contraindication to Antithrombotic: Antithrombotic prescribed Contraindication to Anticoagulation: Patient transfer Contraindication to Statin: Statin prescribed Coding Level of Care Code Acute 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
[2020-06-23] MEDS: morphine 4 mg/mL SDV 1 mL 2 MG IVP ×2 (14:36→18:48)
[2020-06-23 15:02] LABS: Troponin 5 6HR 8.42 ng/L (0-15); Troponin 5 6HR Delta 0.42 ng/L (0-12)
--- NOTE | 2020-06-23 19:04 | PC.NURSE ---
patient in process to transfer to [facility] called report to william RN room number [id number] spouse provided with information
--- NOTE | 2020-06-23 19:22 | PC.NURSE ---
patient left facility via ambulance transfer to [facility] for transfer patient alert oriented and in stable condition
[2020-06-23 21:57] LABS: Glucose Point of Care 179 mg/dL (70-110)
== END 2020-06-23 19:22 | disposition short-term general hospital (02) ==
LOC: ER 08:33 → ICU 09:53 → CSU 12:37
PROVIDERS: Admitting Provider Internal Medicine; Emergency Provider Family Medicine; PCP Family Medicine Adult Medicine; Visit Provider Internal Medicine
DX: R41.82 Altered mental status, unspecified (principal); R51.9 Headache, unspecified; R55 Syncope and collapse; I10 Essential (primary) hypertension; T68.XXXA Hypothermia, initial encounter; Z79.82 Long term (current) use of aspirin
CPT/HCPCS: 36415; 36416; 36600; 70450; 70496; 70498; 70551; 71045; 80051; 80053; 81003; 82330; 82805; 82962; 83036; 83735; 84443; 84484; 85025; 93005; 93306; 96361; 96372; 96374; 96375; 99285; G0378; J1650; J2270; J2405; J3490; J7030; Q9967

== ENCOUNTER 2020-07-05 19:31 | Emergency (ER) | payer MEDICARE, SELFPAY ==
[2020-07-05 19:31] VITALS: BP 153/71; PULSE 66; RESP 16; TEMP 36.8; O2SAT 100; BMI 27.6
--- NOTE | 2020-07-05 19:35 | XRR_ITS ---
PROCEDURE INFORMATION: Exam: XR Abdomen Exam date and time: 07/05/2020 7:47 PM Age: 69 years old Clinical indication: Constipation TECHNIQUE: Imaging protocol: XR of the abdomen. Views: Frontal supine view of the abdomen. 1 View. COMPARISON: No relevant prior studies available. FINDINGS: Gastrointestinal tract: Nonobstructive bowel gas pattern. Intraperitoneal space: Negative for pneumoperitoneum. Bones/joints: Unremarkable. Other findings: Large fecal volume. XR/XR KUB [id number] IMPRESSION: Constipation.
--- NOTE | 2020-07-05 19:40 | ED_ITS ---
HPI - Abdominal Pain General: Chief Complaint: Abdominal Pain Stated Complaint: POSSIBLE SBO Time Seen by Provider: 07/05/20 19:32 Source: patient and EMS Mode of arrival: EMS Limitations: no limitations History of Present Illness: HPI narrative: 69-year-old male states that he has had severe constipation has not had a bowel movement over a week. He states been having some abdominal cramping along with anal pain. He has tried enemas at home along with stool softeners and has not been able have a bowel movement. He denies any vomiting. Denies any worsening improving factors. States pain is currently 5 out of 10. MD elicited complaint: abdominal pain Associated Symptoms: Reports constipation; Denies chills, dysuria and fever(s) Review of Systems Const: Denies: fever(s), chills, body aches or change in appetite Eyes: Denies: blurry vision or eye discomfort ENMT: Denies: throat pain or dental pain Card: Denies: chest pain Resp: Denies: dyspnea GI: Reports: abdominal pain and constipation : Denies: dysuria Musc: Denies: neck pain or back pain Skin/Breast: Denies: rash Neuro: Denies: headache(s) Psych: Denies: depression Emilio/Lymph: Denies: easy bruising All/Imm: Denies: urticaria PFSH ED PFSH: Medical History HTN (hypertension) Late effects of cerebrovascular disease, dysarthria Multiple lacunar infarcts Family History Other Cancer Social History Smoking and tobacco status: former smoker Alcohol intake: current Alcohol intake frequency: holidays/special occasions only Alcohol type: wine Household members: spouse Marital status: Current occupational status: employed Current occupation: [employer] Physical Exam Const: COMMON NORMALS: no acute distress, patient oriented x3 and healthy appearing HENMT: COMMON NORMALS: normocephalic and atraumatic HEAD & SCALP: normocephalic and atraumatic Eye: COMMON NORMALS: Equal, round and reactive pupils present and EOMs intact bilaterally PUPIL: Yes Equal, round and reactive pupils present Neck/C-Spine: COMMON NORMALS: full ROM and supple Chest: COMMONS NORMALS: normal inspection of the chest and normal palpation of entire chest wall Resp: COMMON NORMALS: normal respiratory effort, No retractions, No use of accessory muscles and clear to auscultation bilaterally AUSCULTATION: clear to auscultation bilaterally Cardio: COMMON NORMALS: regular rate, regular rhythm and No murmurs present (Cardio) RATE: regular rate RHYTHM: regular rhythm GI: COMMON NORMALS: Normal to inspection, nondistended, normoactive bowel sounds present, Soft to palpation, non-tender and no masses PALPATION: Yes Soft to palpation Extremity: COMMON NORMALS: normal to inspection and full ROM Neuro: COMMON NORMALS: patient oriented x3, moves all extremities and no focal motor deficits Psych: COMMON NORMALS: mental status grossly normal, Normal thought process present and cooperative THOUGHT PROCESS: Normal thought process present Skin: COMMON NORMALS: no rashes or lesions noted and no wounds GENERAL SKIN EXAM: no rashes or lesions noted Course Vital Signs: Vital signs: Vital Signs Temperature 98.2 F 07/05/20 19:31 Pulse Rate 66 07/05/20 19:31 Respiratory Rate 16 07/05/20 19:31 Blood Pressure 153/71 07/05/20 19:31 Pulse Oximetry 100 07/05/20 19:31 MDM - Abdominal Pain MDM Narrative: Medical decision making narrative: Patient presents here with abdominal pain and does have constipation. Patient was able to have large bowel movement here after enema and lactulose. He feels much improved. Will prescribe him MiraLAX and he is stable for discharge. Imaging Data ^: KUB: Radiologist's impression: [address] [address] XRay Report Signed Patient: Dony Padilla Unit #: [id number] : 1950 Age/Sex: 69 / M ADM Date: 07/05/20 Loc: ER Room/Bed: Attending Dr: Ordering Provider/Ordering MD: Jeremy Montgomery MD Date of Service: 07/05/20 Procedure(s): XR KUB [id number] Accession Number(s): [id number] Report Number: [id number] PROCEDURE INFORMATION: Exam: XR Abdomen Exam date and time: 07/05/2020 7:47 PM Age: 69 years old Clinical indication: Constipation TECHNIQUE: Imaging protocol: XR of the abdomen. Views: Frontal supine view of the abdomen. 1 View. COMPARISON: No relevant prior studies available. FINDINGS: Gastrointestinal tract: Nonobstructive bowel gas pattern. Intraperitoneal space: Negative for pneumoperitoneum. Bones/joints: Unremarkable. Other findings: Large fecal volume. XR/XR KUB [id number] IMPRESSION: Constipation. Discharge Plan Discharge Patient Disposition: Home Clinical Impression: Constipation Qualifiers: Constipation type: unspecified constipation type Qualified Code(s): K59.00 - Constipation, unspecified Condition: Stable Prescriptions: New Miralax 17 gram/dose powder 17 g PO DAILY PRN (Reason: constipation) Qty: 119 RF: 0 No Action aspirin 81 mg tablet,delayed release (DR/EC) 81 mg PO DAILY RF: 0 apixaban 2.5 mg tablet 2.5 mg PO BID Qty: 60 RF: 5 amlodipine 5 mg tablet 5 mg PO DAILY Qty: 30 RF: 5 lisinopril 10 mg tablet 10 mg PO DAILY Qty: 30 RF: 2 Discharge Orders: Discharge ED (Routine); Ordered 07/05/20 Ordered By: Jeremy Montgomery Referrals: Dalton Cerna MD [Primary Care Provider] - 1-3 days Discharge Diet: Advance as tolerated Discharge Activity: Resume usual activity Patient Instructions: Constipation (ED) Coding Level of Care Code ED Philosophy And Religion Instructor for Chg Fwd Exam Comprehensive
[2020-07-05] MEDS: LORazepam 1 mg Tablet PO (19:48)
[2020-07-05] MEDS: lactulose oral liq 20 gm/30 mL UDC 30 GM PO (19:48)
[2020-07-05] MEDS: Fleet Enema 133 mL Enema PR (20:58)
[2020-07-05 22:01] VITALS: BP 130/68; PULSE 62; RESP 18; O2SAT 96
== END 2020-07-05 22:04 | disposition home or self-care (01) ==
PROVIDERS: Emergency Provider Emergency Medicine; PCP Family Medicine Adult Medicine
DX: K59.00 Constipation, unspecified (principal); Z79.82 Long term (current) use of aspirin; I10 Essential (primary) hypertension; Z87.891 Personal history of nicotine dependence
CPT/HCPCS: 74018; 99283

== ENCOUNTER → 2020-12-02 10:17 | Outpatient (BNVA) | payer SELFPAY | PROVIDERS: PCP Family Medicine Adult Medicine; Visit Provider Family Medicine | DX: Z02.4 Encounter for examination for driving license (principal); E78.00 Pure hypercholesterolemia, unspecified | CPT/HCPCS: 80061 ==

== ENCOUNTER → 2021-01-28 10:12 | Outpatient (BNVA) | payer SELFPAY | PROVIDERS: Visit Provider Family Medicine | DX: R73.9 Hyperglycemia, unspecified (principal) | CPT/HCPCS: 36416; 82962 ==

== ENCOUNTER → 2021-09-08 11:40 | Outpatient (BNVA) | payer MEDICARE, SELFPAY | PROVIDERS: PCP Family Medicine; Visit Provider Family Medicine | DX: E78.00 Pure hypercholesterolemia, unspecified (principal); I10 Essential (primary) hypertension; J02.9 Acute pharyngitis, unspecified | CPT/HCPCS: 80053; 80061; 85025 ==

== ENCOUNTER → 2023-01-10 15:17 | Outpatient (BNVA) | payer MEDICARE, SELFPAY | PROVIDERS: PCP Family Medicine; Visit Provider Family Medicine | DX: Z02.4 Encounter for examination for driving license (principal) | CPT/HCPCS: 81000 ==

== ENCOUNTER → 2023-06-13 15:00 | Outpatient (BNVA) | payer MEDICARE, SELFPAY | PROVIDERS: PCP Family Medicine; Visit Provider Family Medicine | DX: I10 Essential (primary) hypertension (principal) | CPT/HCPCS: 80053; 85025 ==

== ENCOUNTER → 2023-11-29 10:47 | Outpatient (BNVA) | payer MEDICARE, SELFPAY | PROVIDERS: PCP Family Medicine; Visit Provider Family Medicine | DX: Z86.19 Personal history of other infectious and parasitic diseases (principal); R53.1 Weakness; E78.5 Hyperlipidemia, unspecified | CPT/HCPCS: 80053; 84443; 85025; 86618; 86666; 86757 ==

== ENCOUNTER 2023-12-04 13:22 | Inpatient (IN) | payer MEDICARE, SELFPAY ==
[2023-12-04] VITALS (8 sets, daily range): BP systolic 146–216; BP diastolic 78–109; PULSE 68–92; RESP 15–16; TEMP 36.7–37; O2SAT 92–97; BMI 25.8
--- NOTE | 2023-12-04 13:31 | XRR_ITS ---
PROCEDURE INFORMATION: Exam: XR Chest Exam date and time: 12/04/2023 1:48 PM Age: 73 years old Clinical indication: Pain; Shortness of breath; Chest pressure; Additional info: Cp TECHNIQUE: Imaging protocol: Radiologic exam of the chest. Views: 1 view. COMPARISON: CR XR chest 1V portable [id number] 06/23/2020 9:36 AM FINDINGS: Lungs: Bilateral apical fibrotic changes. No focal consolidation. Pleural spaces: Unremarkable. No pleural effusion. No pneumothorax. Heart/Mediastinum: Unremarkable. No cardiomegaly. Vasculature: Aortic arch calcifications. Unfolding of the thoracic aorta. Bones/joints: Moderate degenerative disease of bilateral acromioclavicular joints. XR/XR chest 1V portable [id number] IMPRESSION: No acute cardiopulmonary process.
--- NOTE | 2023-12-04 13:31 | ECG_ITS ---
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 Measurements Intervals [place] Rate: 69 P: 48 VT: 237 QRS: 19 QRSD: 98 T: 62 QT: 354 QTc: 379 Interpretive Statements SINUS RHYTHM WITH FIRST DEGREE AV BLOCK NONSPECIFIC T-WAVE ABNORMALITY INTERPRETATION BASED ON A DEFAULT AGE OF 40 YEARS Compared to ECG 06/23/2020 14:12:12 T-wave abnormality now present Electronically Signed On 12-04-2023 20:07:01 CDT by Alex Mead M.D. [id number]
[2023-12-04 14:27] LABS: Basophils # 0.1 10^3/uL (0.0-0.1); Basophils % 0.8 %; Eosinophils # 0.1 10^3/uL (0.0-0.8); Eosinophils % 1.6 %; Hematocrit 44.6 % (37-53); Lymphocytes # 1.6 10^3/uL (0.8-4.8); Lymphocytes % 21.3 %; Mean Corpuscular HGB Conc 33.4 g/dL (30-55); Mean Corpuscular Hemoglobin 29.2 pg (27-33); Mean Corpuscular Volume 87.3 fl (82-101); Mean Platelet Volume 8.4 fL (7.4-10.4); Monocytes # 0.4 10^3/uL (0.2-0.9); Monocytes % 5.8 %; Neutrophils % 70.1 %; Nucleated Red Blood Cells % 0 %; Platelet Count 290 10^3/cmm (157-399); Red Blood Count 5.11 10^6/uL (3.85-5.65); Red Cell Distribution Width 12.9 % (12.1-15.1); White Blood Count 7.42 10^3/uL (3.29-11.43)
[2023-12-04 14:41] LABS: INR 0.96 (0.8-1.2)
[2023-12-04 14:50] LABS: Troponin(5th) Baseline 8 ng/L (0-15)
[2023-12-04 14:57] LABS: Alanine Aminotransferase 24 U/L (0-41); Albumin Level 4.5 g/dL (3.5-5.2); Alkaline Phosphatase 63 U/L (40-130); Anion Gap 15.3 (5-19); Aspartate Amino Transferase 19 U/L (0-40); Blood Urea Nitrogen 16 mg/dL (8-23); Calcium 9.4 mg/dL (8.5-10.5); Carbon Dioxide 24 mmol/L (22-29); Chloride 100 mmol/L (98-107); Creatinine Clr Calc Pharmacy 76.5436; Globulin 2.4 g/dL (1.3-4.6); Glucose 106 mg/dL (65-115); Lipase 29 U/L (13-60); NT Pro B Type Natriuretic Pept 59 pg/mL (0-125); Osmolality Calculated 282 mOsm/kg (285-295); Potassium 4.3 mmol/L (3.5-5.1); Sodium 135 mmol/L (136-145); Total Bilirubin 0.5 mg/dL (0.15-1.2); Total Protein 6.9 g/dL (6.6-8.7)
--- NOTE | 2023-12-04 15:10 | CTR_ITS ---
PROCEDURE INFORMATION: Exam: CT Head Without Contrast Exam date and time: 12/04/2023 4:07 PM Age: 73 years old Clinical indication: Pain; Headache not specified; Additional info: REEVES TECHNIQUE: Imaging protocol: Computed tomography of the head without contrast. Radiation optimization: All CT scans at this facility use at least one of these dose optimization techniques: automated exposure control; mA and/or kV adjustment per patient size (includes targeted exams where dose is matched to clinical indication); or iterative reconstruction. COMPARISON: MR head wo con* [id number] 06/23/2020 12:53 PM RADIATION DOSE METRICS: Total DLP (mGy-cm): 1099.78 FINDINGS: Brain: Bilateral periventricular white matter and centrum semiovale hypodensities, consistent with chronic ischemic small vessel disease. Left cerebellar encephalomalacia, from prior infarct. No recent infarct, intracranial bleed or mass effect. Cerebral ventricles: No ventriculomegaly. Paranasal sinuses: Left maxillary sinus mucous retention cysts. Mastoid air cells: Visualized mastoid air cells are well aerated. Bones: Unremarkable. No acute fracture. Soft tissues: Unremarkable. CT/CT head wo con* [id number] IMPRESSION: No large territorial infarct or intracranial bleed.
--- NOTE | 2023-12-04 15:11 | ED_ITS ---
HPI - Chest Pain 2 General: Chief Complaint: Chest Pain Stated Complaint: CP , SOB Time Seen by Provider: 12/04/23 14:33 Source: patient Mode of arrival: ambulatory Limitations: no limitations History of Present Illness: 73-year-old male states he been having c hest pain throughout the day. Pains been sharp pain in the center of his chest with some mild dyspnea. States pain is currently 6 out of 10 family states had some confusion as he is answer my questions here appropriately states had some generalized weakness as well. He denies any cough denies any fever denies any vomiting. Associated symptoms: Deny abdominal pain, dyspnea, fever(s), nausea or vomiting Related Data Previous Rx's Medication Instructions Recorded amlodipine 5 mg tablet 5 mg PO DAILY #90 tabs 01/04/23 alprazolam 0.5 mg tablet 0.5 mg PO .bed time PRN sleep 60 06/13/23 days #60 tabs zolpidem 10 mg tablet (Ambien) 10 mg PO ONCE PRN insomnia #10 tabs 11/29/23 Allergies Allergy/AdvReac Type Severity Reaction Status Date / Time No Known Allergies Allergy Verified 12/04/23 13:30 Review of Systems 2 Const: Denies: fever(s), chills, body aches or change in appetite ENMT: Denies: throat pain or dental pain Card: Reports: chest pain Resp: Denies: dyspnea GI: Denies: abdominal pain, nausea, vomiting or diarrhea Musc: Denies: neck pain or back pain Skin/Breast: Denies: rash Neuro: Reports: confusion; Denies: headache(s) PFSH ED 2 PFSH: Medical History COVID-19 vaccine regimen to maintain immunity completed Moderna Booster on 04/25/2021 Decreased glomerular filtration rate (GFR) Cerebral vascular disease Constipation Dyslipidemia Acute CVA (cerebrovascular accident) HTN (hypertension) 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, dysarthria Family History Other Cancer Social History Smoking and tobacco/nicotine status: never used tobacco/nicotine Alcohol intake: current Alcohol intake frequency: holidays/special occasions only Alcohol type: wine Substance/Drug Use: never Household members: spouse Marital status: Current occupational status: employed Current occupation: [employer] Physical Exam 2 Const: COMMON NORMALS: no acute distress and healthy appearing; negative for patient oriented x3 HENMT: COMMON NORMALS: normocephalic and atraumatic HEAD & SCALP: n ormocephalic and atraumatic Neck/C-Spine: COMMON NORMALS: full ROM and supple Chest: COMMONS NORMALS: normal inspection of the chest and normal palpation of entire chest wall Resp: COMMON NORMALS: normal respiratory effort, No retractions, No use of accessory muscles and clear to auscultation bilaterally AUSCULTATION: clear to auscultation bilaterally Cardio: COMMON NORMALS: regular rate, regular rhythm and No murmurs present (Cardio) RATE: regular rate RHYTHM: regular rhythm GI: COMMON NORMALS: non-tender and no masses Extremity: COMMON NORMALS: normal to inspection and full ROM Neuro: COMMON NORMALS: moves all extremities and no focal motor deficits; negative for patient oriented x3 Psych: COMMON NORMALS: mental status grossly normal, Normal thought process present and cooperative THOUGHT PROCESS: Normal thought process present Skin: COMMON NORMALS: no rashes or lesions noted and no wounds GENERAL SKIN EXAM: no rashes or lesions noted Course 2 Vital Signs: Vital signs: Vital Signs Temperature 98.6 F 12/04/23 13:31 Pulse Rate 77 12/04/23 17:49 Respiratory Rate 16 12/04/23 13:31 Blood Pressure 216/90 12/04/23 17:49 Pulse Oximetry 94 12/04/23 17:49 Oxygen Delivery Me thod Room Air 12/04/23 17:49 MDM - Chest Pain Medical Decision Making Patient presents in chair originally with chest pain has been chest pain-free here troponins are negative he is also been having increased confusion per family for the last week he has had a history of a stroke but states that he did return to his baseline over a year ago but over the last weeks been more confused with some generalized weakness and been hypertensive he has been hypertensive here as well as head CT is normal he has no signs of acute stroke at this been going for weeks I did speak to the hospitalist will admit for observation. Medical Records I reviewed the patient's medical records. Lab Data I reviewed the patient's lab results. 12/04/23 14:20 08/18/24 14:20 Radiology Impressions Chest X-Ray 12/04/23 13:31 IMPRESSION: No acute cardiopulmonary process. Head CT 12/04/23 15:10 IMPRESSION: No large territorial infarct or intracranial bleed. Laboratory Results WBC 7.42 10^3/uL (3.29-11.43) 12/04/23 14:20 RBC 5.11 10^6/uL (3.85-5.65) 12/04/23 14:20 Hgb 14.90 g/dL (11.27-16.99) 12/04/23 14:20 Hct 44.6 % (37-53) 12/04/23 14:20 MCV 87.3 fl (82-101) 12/04/23 14:20 MCH 29.2 pg (27-33) 12/04/23 14:20 MCHC 33.4 g/dL (30-55) 12/04/23 14:20 RDW 12.9 % (12.1-15.1) 12/04/23 14:20 Plt Count 290 10^3/cmm (157-399) 12/04/23 14:20 MPV 8.4 fL (7.4-10.4) 12/04/23 14:20 Neut % (Auto) 70.1 % 12/04/23 14:20 Lymph % (Auto) 21.3 % 12/04/23 14:20 [place] % (Auto) 5.8 % 12/04/23 14:20 Eos % (Auto) 1.6 % 12/04/23 14:20 Baso % (Auto) 0.8 % 12/04/23 14:20 Neut # (Auto) 5.20 10^3/uL (1.8-7.7) 12/04/23 14:20 Lymph # (Auto) 1.6 10^3/uL (0.8-4.8) 12/04/23 14:20 [place] # (Auto) 0.4 10^3/uL (0.2-0.9) 12/04/23 14:20 Eos # (Auto) 0.1 10^3/uL (0.0-0.8) 12/04/23 14:20 Baso # (Auto) 0.1 10^3/uL (0.0-0.1) 12/04/23 14:20 Nucleated RBC % (auto) 0 % 12/04/23 14:20 Nucleated RBCs # 0.0 /100WBC 12/04/23 14:20 PT 13.10 SECONDS (12.1-14.9) 12/04/23 14:20 INR 0.96 (0.8-1.2) 12/04/23 14:20 Sodium 135 mmol/L (136-145) L 12/04/23 14:20 Potassium 4.3 mmol/L (3.5-5.1) 12/04/23 14:20 Chloride 100 mmol/L (98-107) 12/04/23 14:20 Carbon Dioxide 24 mmol/L (22-29) 12/04/23 14:20 Anion Gap 15.3 (5-19) 12/04/23 14:20 BUN 16 mg/dL (8-23) 12/04/23 14:20 Creatinine 0.9 mg/dL (0.7-1.2) 12/04/23 14:20 GFR Calculation Not Reportable 12/04/23 14:20 Glucose 106 mg/dL (65-115) 12/04/23 14:20 Calculated Osmolality 282 mOsm/kg (285-295) L 12/04/23 14:20 Calcium 9.4 mg/dL (8.5-10.5) 12/04/23 14:20 Total Bilirubin 0.5 mg/dL (0.15-1.2) 12/04/23 14:20 AST 19 U/L (0-40) 12/04/23 14:20 ALT 24 U/L (0-41) 12/04/23 14:20 Alkaline Phosphatase 63 U/L (40-130) 12/04/23 14:20 Troponin T Baseline 8 ng/L (0-15) 12/04/23 14:20 Troponin T 120 Minute 7.55 ng/L (0-15) 12/04/23 17:12 Delta Troponin T -0.45 ABS# (0-10) L 12/04/23 17:12 NT-Pro-B Natriuret Pep 59 pg/mL (0-125) 12/04/23 14:20 Total Protein 6.9 g/dL (6.6-8.7) 12/04/23 14:20 Albumin 4.5 g/dL (3.5-5.2) 12/04/23 14:20 Globulin 2.4 g/dL (1.3-4.6) 12/04/23 14:20 Lipase 29 U/L (13-60) 12/04/23 14:20 All radiology interpretation(s) finalized by discharge EKG Data EKG 1: I personally reviewed and interpreted this EKG as follows: EKG interpretation date: 12/04/23 EKG interpretation time: 16:02 Interpretation: nsr hr 69 no t or t wave abnormalities qrs 93 qtc 359 Discharge Plan Discharge Patient Disposition: Admitted As Inpatient Clinical Impression: Chest pain, Hypertension, Confusion Condition: Stable Prescriptions: No Action alprazolam 0.5 mg tablet 0.5 mg PO .bed time PRN (Reason: sleep) 60 Days Qty: 60 2RF Hold Instructions: Dose Change Rx Instructions: intended request of 60 d rx amlodipine 5 mg tablet 5 mg PO DAILY Qty: 90 3RF Rx Instructions: ok to begin w 1/2 tab daily zolpidem [Ambien] 10 mg tablet 10 mg PO ONCE PRN (Reason: insomnia) Qty: 10 0RF Rx Instructions: begin w 1/2 tablet every other night Referrals: Bry Kwon MD [Primary Care Provider] - Coding Level of Care Code ED Operator Prefinish for Chg Oral
[2023-12-04] MEDS: ondansetron 2 mg/ML SDV 2 mL 4 MG IVP (15:22)
[2023-12-04] MEDS: hyDRALAzine 20 mg/mL INJ 1 mL 10 MG IVP ×2 (15:25→17:59)
--- NOTE | 2023-12-04 15:31 | ECG_ITS ---
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 Measurements Intervals [place] Rate: 69 P: 54 WV: 237 QRS: 45 QRSD: 93 T: 66 QT: 340 QTc: 365 Interpretive Statements SINUS RHYTHM WITH FIRST DEGREE AV BLOCK NONSPECIFIC T-WAVE ABNORMALITY Compared to ECG 12/04/2023 13:21:48 No significant changes Electronically Signed On 12-04-2023 20:10:33 CDT by Alex Mead M.D. [id number]
[2023-12-04 17:32] LABS: Troponin 5 2HR 7.55 ng/L (0-15); Troponin 5 2HR Delta -0.45 ABS# (0-10)
[2023-12-04] MEDS: aspirin 81 mg Chew Tablet 324 MG PO (18:29)
--- NOTE | 2023-12-04 18:37 | CTR_ITS ---
PROCEDURE INFORMATION: Exam: CTA Head With Contrast, Arteriography Exam date and time: 12/04/2023 6:55 PM Age: 73 years old Clinical indication: Cognitive deficit and numbness and weakness; Altered mental status; Patient HX: Increasing confusion and general weakness with RT sided numbness. History of CVA. ; Additional info: AMS, TECHNIQUE: Imaging protocol: Computed tomographic angiography of the head with contrast. Exam focused on the arteries. 3D rendering (Not supervised by radiologist): MIP and/or 3D reconstructed images were created by the technologist. Radiation optimization: All CT scans at this facility use at least one of these dose optimization techniques: automated exposure control; mA and/or kV adjustment per patient size (includes targeted exams where dose is matched to clinical indication); or iterative reconstruction. Contrast material: OMNI 350; Contrast volume: 100 ml; Contrast route: INTRAVENOUS (IV); COMPARISON: CT head wo con* [id number] 12/04/2023 4:07 PM RADIATION DOSE METRICS: Total DLP (mGy-cm): 433.75 FINDINGS: ANTERIOR CIRCULATION: Right internal carotid artery: Intracranial segment is patent with no significant stenosis. No aneurysm. Right middle cerebral artery: No occlusion or significant stenosis. No aneurysm. Right anterior cerebral artery: No occlusion or significant stenosis. No aneurysm. Left internal carotid artery: Occluded intracranial segments. Left middle cerebral artery: No occlusion or significant stenosis. No aneurysm. Left anterior cerebral artery: No occlusion or significant stenosis. No aneurysm. POSTERIOR CIRCULATION: Right vertebral artery: No occlusion or significant stenosis. No aneurysm. Left vertebral artery: Diminutive flow of the left vertebral artery. Basilar artery: No occlusion or significant stenosis. No aneurysm. Right posterior cerebral artery: No occlusion or significant stenosis. No aneurysm. Left posterior cerebral artery: No occlusion or significant stenosis. No aneurysm. Brain: Old infarct of the left cerebellar hemisphere. No definite mass, mass effect, or midline shift. Cerebral ventricles: No ventriculomegaly. Bones/joints: Unremarkable. No acute fracture. Soft tissues: Unremarkable. PROCEDURE INFORMATION: Exam: CTA Neck With Contrast Exam date and time: 12/04/2023 6:55 PM Age: 73 years old Clinical indication: Cognitive deficit and numbness and weakness; Altered mental status; Patient HX: Increasing confusion and general weakness with RT sided numbness. History of CVA. ; Additional info: AMS, TECHNIQUE: Imaging protocol: Computed tomographic angiography of the neck with contrast. Exam focused on the cervical segments of the vasculature. 3D rendering (Not supervised by radiologist): MIP and/or 3D reconstructed images were created by the technologist. Radiation optimization: All CT scans at this facility use at least one of these dose optimization techniques: automated exposure control; mA and/or kV adjustment per patient size (includes targeted exams where dose is matched to clinical indication); or iterative reconstruction. Contrast material: OMNI 350; Contrast volume: 100 ml; Contrast route: INTRAVENOUS (IV); COMPARISON: CT angio headneck* [id number] 06/23/2020 10:22 AM RADIATION DOSE METRICS: Total DLP (mGy-cm): 433.75 FINDINGS: Right common carotid artery: No stenosis. No dissection or occlusion. Right internal carotid artery: Severe stenosis at the origin of the right internal carotid artery with an estimated 90% luminal narrowing. Right external carotid artery: No occlusion or stenosis of the origin. Left common carotid artery: No stenosis. No dissection or occlusion. 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 Left external carotid artery: No occlusion or stenosis of the origin. Right vertebral artery: No stenosis. No dissection or occlusion. Left vertebral artery: Diminutive flow of the left vertebral artery throughout its cervical course suggesting underlying significant stenosis. Soft tissues: Normal. No significant soft tissue swelling. Bones/joints: No acute fracture. CT/CT angio headne* [id number] IMPRESSION: 1. Occluded left internal carotid artery of the intracranial segments. 2. Diminutive flow of the left vertebral artery. IMPRESSION: 1. 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 2. Diminutive flow left vertebral artery throughout its cervical course suggesting underlying significant stenosis. 3. Severe stenosis at the origin of the right internal carotid artery. THIS REPORT CONTAINS FINDINGS THAT MAY BE CRITICAL TO PATIENT CARE. The findings were verbally communicated via telephone conference with Dr. Mcdonald at 8:27 PM CDT on 12/04/2023. The findings were acknowledged and understood. REFERENCES: NASCET CRITERIA. The degree of stenosis in the cervical segment of the internal carotid artery is based on NASCET criteria. Normal is no stenosis. Mild is less than 50% stenosis. Moderate is 50-69% stenosis. Severe is 70% to 99% stenosis. Total occlusion is no detectable patent lumen.
--- NOTE | 2023-12-04 18:39 | P.HP_ITS ---
Providers/Chief Complaint 2 Primary Care Provider: Bry Kwon MD Chief Complaint: CP , SOB History of Present Illness Dony Padilla is a 73 year old male with a past medical history of cerebellar CVA, history of high-grade left ICA stenosis, history of right ICA stenosis, hypertension who presents [facility] for altered mental status. Currently patient is alert to person, not to place, not to time, he tells me that it is May,, he does not know the president, he recognizes his , he knows his name and his birthdate, he knows his address he does not remember what he had for breakfast this morning he continued to require repetition for questioning, at times is quite days, frequently yawns, on examination he has equal strength bilateral upper extremities, bilateral lower extremities, no focal weakness, no slurring of words no facial droop, pupils equal round reactive to light. 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 This morning, he went to shower and came out of the shower naked, confused, he also had use of bathroom without cleaning himself which she found as altered, eventually got back in the shower and got dressed, when he started complaining of chest pain, and that he had to come to the hospital, currently denying any chest pain, no recent falls, recent injuries, she he has not voiced any specific concerns, but she has noticed that he is increasingly confused, denies any fevers, no chills, no neck pain, no neck stiffness Review of Systems 2 Const: Denies: fever(s) or chills Eyes: Denies: change in vision Card: Reports: chest pain Resp: Denies: dyspnea GI: Denies: abdominal pain : Denies: flank pain Neuro: Reports: confusion; Denies: headache(s), numbness in extremities, weakness in extremities, difficulty walking, dizziness, vertigo or Slurred speech present Endo: Denies: polyuria Medications/Allergies Home Medications Medication Instructions Recorded Confirmed Last Taken Type amlodipine 5 mg tablet 5 mg PO DAILY #90 tabs 01/04/23 11/29/23 Unknown Rx alprazolam 0.5 mg tablet 0.5 mg PO .bed time PRN sleep 60 06/13/23 11/29/23 Unknown Rx days #60 tabs zolpidem 10 mg tablet (Ambien) 10 mg PO ONCE PRN insomnia #10 tabs 11/29/23 11/29/23 Unknown Rx Allergies Allergy/AdvReac Type Severity Reaction Status Date / Time No Known Allergies Allergy Verified 12/04/23 13:30 PFSH Acute 2 PFSH: Medical History COVID-19 vaccine regimen to maintain immunity completed Moderna Booster on 04/25/2021 Decreased glomerular filtration rate (GFR) Cerebral vascular disease Constipation Dyslipidemia Acute CVA (cerebrovascular accident) HTN (hypertension) 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, dysarthria Family History Other Cancer Social History Smoking and tobacco/nicotine status: never used tobacco/nicotine Alcohol intake: current Alcohol intake frequency: holidays/special occasions only Alcohol type: wine Substance/Drug Use: never Household members: spouse Marital status: Current occupational status: employed Current occupation: [employer] Vitals/I&O/Wt Last Vital Signs Temp 98.6 F 12/04/23 13:31 Pulse 92 12/04/23 18:27 Resp 16 12/04/23 13:31 BP 146/109 12/04/23 18:27 Pulse Ox 93 12/04/23 18:27 O2 Del Method Room Air 12/04/23 18:27 Weight last 48 hrs Weight 77.111 kg Physical Exam 2 Const: COMMON NORMALS: no acute distress EXAM LIMITATIONS: altered mental status ORIENTATION/CONSCIOUSNESS: Yes awake, Yes oriented to person, Yes oriented to place and Yes confused; not oriented to time HENMT: COMMON NORMALS: normocephalic HEAD & SCALP: normocephalic Eye: COMMON NORMALS: Equal, round and reactive pupils present and EOMs intact bilaterally Neck/C-Spine: COMMON NORMALS: no JVD OTHER: Kernig sign negative, Brudzinski sign negative Resp: COMMON NORMALS: normal respiratory effort, No retractions, No use of accessory muscles and clear to auscultation bilaterally AUSCULTATION: clear to auscultation bilaterally Cardio: COMMON NORMALS: no JVD, regular rate, regular rhythm, S1 normal heart sound present and S2 normal heart sound present RATE: regular rate RHYTHM: regular rhythm HEART SOUNDS: S1 normal heart sound present and S2 normal heart sound present GI: COMMON NORMALS: Normal to inspection, nondistended, normoactive bowel sounds present, Soft to palpation and non-tender Extremity: COMMON NORMALS: no calf tenderness and no pedal edema Neuro: COMMON NORMALS: CN's II-XII intact bilaterally, moves all extremities, no focal motor deficits and no sensory deficits noted Psych: COMMON NORMALS: cooperative and denies hallucinations OTHER: His processing speed for information is quite slow, quite requires quite significant amounts of repetition Data 12/04/23 14:20 12/04/23 14:20 A&P Assessment and plan (1) Mental status alteration: (2) Cerebral vascular disease: (3) Hypertension: (4) Chest pain: (5) Hypercholesteremia: Plan Altered mental status --Etiology unclear Altered mental status for the last week, out of the window for any tPA, out of the window for any acute endovascular procedure -Does report that he was around chemicals, at 1 point he tells me that he thinks he was poisoned? But is not able to elaborate -Does report tick bites -Has a history of CVA, back in 2020, was admitted for altered mental status, was on Eliquis, was not deemed a tPA candidate, was diagnosed with a large cerebellar CVA on the left, PICA territory, edema noted, transferred to [facility], according to there was no significant interventions, at that time he was on Eliquis -He is not on Eliquis anymore? Family is not sure why, and not sure why exactly he was on Eliquis and to begin with -Also has high-grade left ICA stenosis, family denies any surgical intervention -Is also has right ICA stenosis, no intervention ? He was also found to be quite hypertensive in the emergency room, given doses of hydralazine, currently blood pressures 130s over 100s, possible press syndrome? ? Plan ? Monitor mentation closely ? Neurochecks ? NIH stroke scale ? Aspiration precautions ? Telemetry monitoring ? Continue aspirin, statin -Monitor blood pressure closely, might require further titration of blood pressure medication, or IV blood pressure medications such as IV Cardene drip -Ordered tick panel, Lyme disease panel start doxycycline -IV fluids -Will order CT head and neck -Cardiac echo -MRI brain ? UA ? Pro-Bam, CRP, sed rate ? Blood cultures next -EEG -Will consider lumbar puncture based on clinical progress -PT OT, speech therapy eval -Will try to get more information on why patient was on Eliquis in 2020, and while it was permanently stopped, I do not see any documented history of atrial fibrillation, but certainly there could be concern for embolic event -Full code -Lovenox for DVT prophylaxis Chest pain ? Serial EKGs consult once, telemetry monitoring Attestations 2 Medical Necessity Statement*: Patient requires hospitalization, inpatient, greater than 2 midnights, for altered mental status Diagnoses Mental status alteration R41.82 Cerebral vascular disease I67.9 Hypertension I10 Chest pain R07.9 Hypercholesteremia E78.00
[2023-12-04 18:45] LABS: Erythrocyte Sedimentation Rate 16 mm/hr (0-10)
[2023-12-04 18:53] LABS: ABG PCO2 35.1 mmHg (35-45); ABG PH Result 7.42 (7.35-7.45); Arterial Blood Gas Hematocrit 47.9 % (42-52); Base Excess ABG -0.9 mmol/L (-2.0-2.0); Blood Gas Allen Test Pos; Blood Gas Operator Identificat CAK; Blood Gas Sample Site Radial, left; Blood Gas Sample Type Arterial; Oxygen Device ROOM AIR; PO2 ABG 78.6 mmHg (80.0-100.0); PO2 FiO2 Ratio Arterial Blood 374
[2023-12-04 18:55] LABS: Lactic Sepsis W/Reflex 0.9 mmol/L (0.5-2.2)
[2023-12-04] MEDS: iohexol 350 mg/mL 500 mL Btl (per mL) IV (19:01)
[2023-12-04 19:04] LABS: NT Pro B Type Natriuretic Pept 56 pg/mL (0-125); Procalcitonin 0.07 ng/mL (0-0.5)
[2023-12-04 19:16] LABS: C Reactive Protein 4.3 mg/L (0.0-4.9)
[2023-12-04 19:17] LABS: Acetaminophen < 5.0 ug/mL (10-30); Salicylate < 0.3 mg/dL (3-10)
[2023-12-04] MEDS: sodium chloride 0.9% 1,000 ML 999 ML IV (19:35)
[2023-12-04 19:58] LABS: Charge for UA Resulting for Rev
[2023-12-04 20:03] LABS: Bilirubin Urine Negative (Negative); Blood Urine Negative (Negative); Glucose Urine UA Negative (Normal); Ketones Urine Negative (Negative); Leukocyte Esterase Urine Trace (Negative); Nitrate Urine Negative (Negative); Protein Urine Negative (Negative); Specific Gravity, Urine 1.005 (1.005-1.030); Urine Appearance Clear (CLEAR); Urine Color Yellow (Yellow)
[2023-12-04 20:08] LABS: Bacteria Urine None Seen /hpf; Hyaline Casts Urine 0-4 /lpf; RBC Urine 0-2 /hpf (0-2); Squamous Epithelial Cell Urine 0-5 /hpf (0-5); WBC Urine 0-5 /hpf (0-5)
[2023-12-04 20:22] LABS: Amphetamines Screen Urine Negative (Negative); Barbiturates Screen Urine Negative (Negative); Benzodiazepines Screen Urine Negative (Negative); Cocaine Screen Urine Negative (Negative); Opiate Screen Urine Negative (Negative); PCP Screen Urine Negative (Negative); THC Screen Urine Negative (Negative)
[2023-12-04] MEDS: doxycycline 100 mg Tablet PO (20:39)
[2023-12-04] MEDS: pantoprazole 40 mg SDV IVP (20:39)
[2023-12-04] MEDS: atorvastatin 40 mg Tablet PO (20:39)
[2023-12-04] MEDS: amlodipine 10 mg Tablet PO (20:39)
[2023-12-04] MEDS: sodium chloride 0.9% 1,000 ML 75 ML IV (20:40)
--- NOTE | 2023-12-04 20:41 | ECG_ITS ---
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 Measurements Intervals [place] Rate: 90 P: 56 [place]: 245 QRS: 49 QRSD: 91 T: 59 QT: 341 QTc: 419 Interpretive Statements SINUS RHYTHM WITH FIRST DEGREE AV BLOCK Compared to ECG 12/04/2023 16:02:55 T-wave abnormality no longer present Electronically Signed On 12-05-2023 12:10:07 CDT by Alex Mead M.D. [id number]
[2023-12-04 21:21] LABS: Chol HDL Ratio 4.73 mg/dL (1.0-5.00); Cholesterol 175 mg/dL (0-200); HDL Cholesterol 37 mg/dL (60-100); LDL Cholesterol Calculated 118 mg/dL (50-129); LDL HDL Ratio 3.19 RATIO (0.00-3.22); Thyroid Stimulating Hormone 2.82 uIU/mL (0.27-4.20); Triglycerides 100 mg/dL (0-150)
[2023-12-04 21:24] LABS: Estmated Average Glucose 120; Hemoglobin A1C 5.8 % (4.0-6.0)
[2023-12-05] VITALS (7 sets, daily range): BP systolic 132–169; BP diastolic 63–80; PULSE 69–96; RESP 15–19; TEMP 36.7–37.1; O2SAT 92–95
[2023-12-05 04:30] LABS: Basophils # 0.1 10^3/uL (0.0-0.1); Basophils % 0.7 %; Eosinophils # 0.1 10^3/uL (0.0-0.8); Eosinophils % 0.7 %; Hematocrit 40.5 % (37-53); Lymphocytes # 1.7 10^3/uL (0.8-4.8); Lymphocytes % 17.9 %; Mean Corpuscular HGB Conc 33.6 g/dL (30-55); Mean Corpuscular Hemoglobin 29.4 pg (27-33); Mean Corpuscular Volume 87.7 fl (82-101); Mean Platelet Volume 8.9 fL (7.4-10.4); Monocytes # 0.9 10^3/uL (0.2-0.9); Monocytes % 9.3 %; Neutrophils # 6.84 10^3/uL (1.8-7.7); Neutrophils % 71.2 %; Nucleated Red Blood Cells % 0 %; Platelet Count 285 10^3/cmm (157-399); Red Blood Count 4.62 10^6/uL (3.85-5.65); Red Cell Distribution Width 13.2 % (12.1-15.1); White Blood Count 9.61 10^3/uL (3.29-11.43)
[2023-12-05 04:45] LABS: Anion Gap 14.1 (5-19); Blood Urea Nitrogen 17 mg/dL (8-23); Calcium 9.1 mg/dL (8.5-10.5); Carbon Dioxide 24 mmol/L (22-29); Chloride 105 mmol/L (98-107); Creatinine Clr Calc Pharmacy 68.8892; Glucose 113 mg/dL (65-115); Magnesium 2.1 mg/dL (1.7-2.3); Osmolality Calculated 290 mOsm/kg (285-295); Potassium 4.1 mmol/L (3.5-5.1); Sodium 139 mmol/L (136-145)
[2023-12-05] MEDS: amlodipine 10 mg Tablet PO (09:16)
[2023-12-05] MEDS: aspirin 81 mg EC Tablet PO (09:16)
[2023-12-05] MEDS: doxycycline 100 mg Tablet PO (09:16)
--- NOTE | 2023-12-05 11:48 | PC.OT ---
OT EVALUATION ORDERS RECEIVED. PATIENT MAY TRANSFER OUT AND NURSING REQUESTS HOLD AT THIS TIME
--- NOTE | 2023-12-05 12:03 | P.TS_ITS ---
Transfer Summary Providers Date of Admission: 12/04/23 19:45 Date of Discharge/Transfer: 12/05/23 Attending Provider at Admission: Horace Talley MD Attending Provider at Transfer: Horace Talley MD Primary Care Provider: Bry Kwon MD Transfer Plans: Anticipated date of transfer: 12/05/23 . Diagnoses at Discharge Discharge Diagnosis (1) Mental status alteration: Status: Acute (2) Cerebral vascular disease: Status: Acute (3) Hypertension: Status: Acute (4) Chest pain: Status: Acute (5) Hypercholesteremia: Status: Acute Reason for Visit Reason for Visit CP , SOB Hospital Course Hospital Course Dony Padilla is a 73 year old male with a past medical history of cerebellar CVA, history of high-grade left ICA stenosis, history of right ICA stenosis, hypertension who presents [facility] for altered mental status. Currently patient is alert to person, not to place, not to time, he tells me that it is May,, he does not know the president, he recognizes his , he knows his name and his birthdate, he knows his address he does not remember what he had for breakfast this morning he continued to require repetition for questioning, at times is quite days, frequently yawns, on examination he has equal strength bilateral upper extremities, bilateral lower extremities, no focal weakness, no slurring of words no facial droop, pupils equal round reactive to light. 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 This morning, he went to shower and came out of the shower naked, confused, he also had use of bathroom without cleaning himself which she found as altered, eventually got back in the shower and got dressed, when he started complaining of chest pain, and that he had to come to the hospital, currently denying any chest pain, no recent falls, recent injuries, she he has not voiced any specific concerns, but she has noticed that he is increasingly confused, denies any fevers, no chills, no neck pain, no neck stiffness -Imaging ordered as below CT head CT/CT head wo con* [id number] IMPRESSION: No large territorial infarct or intracranial bleed. CTA head and neck CT/CT angio headneck* [id number] IMPRESSION: 1. Occluded left internal carotid artery of the intracranial segments. 2. Diminutive flow of the left vertebral artery. IMPRESSION: 1. 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 2. Diminutive flow left vertebral artery throughout its cervical course suggesting underlying significant stenosis. 3. Severe stenosis at the origin of the right internal carotid artery. MRI head MR/MR head wo con* [id number] IMPRESSION: 1. Numerous foci of acute ischemia both cerebral hemispheres mainly subcortical and deep frontal parietal white matter either embolic or watershed in etiology. No evidence of acute ischemia in the cerebellum or brainstem. 2. No significant mass effect or midline shift. No hydrocephalus. 3. Moderate small vessel changes with mild parenchymal volume loss. 4. Chronic encephalomalacia LEFT cerebellum due to prior remote infarct. 5. Chronic lacunar infarcts RIGHT cerebellum. Patient was admitted to [facility] for altered mental status, for the last known well normal was about a week ago, out of the window for tPA, not a candidate for mechanical thromectomy -Has a history of CVA, back in 2020, was admitted for altered mental status, was on Eliquis, was not deemed a tPA candidate, was diagnosed with a large cerebellar CVA on the left, PICA territory, edema noted, transferred to [facility], according to there was no significant interventions, at that time he was on Eliquis -He is not on Eliquis anymore? Family is not sure why, and not sure why exactly he was on Eliquis and to begin with, after his discharge from [facility] he was not placed on anticoagulant therapy, but was on Plavix, as per patient's family he stopped taking aspirin and Plavix and his medications -Also has high-grade left ICA stenosis, family denies any surgical intervention - also has right ICA stenosis, no intervention, family is unsure of any follow- up -Monitored as inpatient received IV fluids, neurochecks, telemetry monitoring -CTA head and neck findings as above obtain 818pm at 2031 -MRI findings as above, results obtained 12/05/2023 at roughly 11 AM, discussed findings with [facility] -Had detailed discussion with the [facility] 12/05/2023 at about 8 AM, spoke to Dr. Iverson -Had a detailed discussion with patient and family about imaging findings, given patient's episodes of confusion, concerning for CVA involving both cerebellar hemispheres, likely watershed stroke from severe right carotid artery stenosis at 90% ? Discussed transfer to tertiary level hospital, patient's family agreeable to transfer to [place] -Spoke to [facility], neurology, Dr. Iverson, findings concerning for CVA, likely watershed stroke, from 90% occlusion of right internal carotid artery with chronic occlusion of left internal carotid artery, likely explanation behind patient's symptomatology, recommended transfer up to [place] for neurology evaluation and vascular intervention of right carotid artery stenosis -Discussed with family they are agreeable to transfer, discussed risk and benefits, shared decision making, they voiced understanding, alcohol questions answered agreed to proceed, continue aspirin, statin, IV fluids allow for permissive hypertension given watershed stroke -On discharge patient is alert to person, to place not to time he can follow commands, requires repetition of instructions to complete tasks quite a few times, troubles processing information, has word finding difficulty at times, has trouble processing information such as [id number] is abnormal bilaterally testing more specifically as he does not know how to follow testing, higher level cerebral functioning and processing seems to be impaired such as asking him to fold a piece of paper in half and placing it on his chest, he can only partially complete the task, requires repetition of information, he does not remember what he had for breakfast this morning, however no facial droop, no significant slurring of his words does have word finding difficulty, no focal weakness upper or lower extremities, able to get up out of bed, able to recognize family numbers at bedside -Patient will be transferred to [facility] Physical Exam Const: COMMON NORMALS: no acute distress EXAM LIMITATIONS: altered mental status ORIENTATION/CONSCIOUSNESS: Yes awake, Yes oriented to person, Yes oriented to place and Yes confused; not oriented to time Resp: COMMON NORMALS: normal respiratory effort, No retractions, No use of accessory muscles and clear to auscultation bilaterally AUSCULTATION: clear to auscultation bilaterally Cardio: COMMON NORMALS: regular rate, regular rhythm, S1 normal heart sound present and S2 normal heart sound present RATE: regular rate RHYTHM: regul ar rhythm HEART SOUNDS: S1 normal heart sound present and S2 normal heart sound present GI: COMMON NORMALS: Normal to inspection, nondistended, normoactive bowel sounds present and non-tender Extremity: COMMON NORMALS: no pedal edema Neuro: COMMON NORMALS: CN's II-XII intact bilaterally, moves all extremities and no focal motor deficits SENSORIUM/ORIENTATION: Yes oriented to person, Yes oriented to place and No oriented to time Psych: COMMON NORMALS: mental status grossly normal TS Data Studies Completed and Pending Pending at discharge Category Date Time Status EEG electroencephalogram Stat Exams 12/04/23 18:38 Ordered Basic Metabolic Panel AM LABS Lab 12/06/23 04:00 Ordered Basic Metabolic Panel AM LABS Lab 12/07/23 04:00 Ordered Blood Culture Routine Lab 12/04/23 20:37 Results Complete Blood Count w/Auto AM LABS Lab 12/06/23 04:00 Ordered Complete Blood Count w/Auto AM LABS Lab 12/07/23 04:00 Ordered Heavy Metals Panel (Venous) Routine Lab 12/04/23 20:35 Received Lymes Ab IgG/IgM ref WB [Lymes Western Blot] Stat Lab 12/04/23 20:35 Received Magnesium AM LABS Lab 12/06/23 04:00 Ordered Magnesium AM LABS Lab 12/07/23 04:00 Ordered Tick Panel Stat Lab 12/04/23 20:35 Received CV. echo complete* [id number] Stat Ultrasound 12/05/23 18:37 Taken Completed Studies During Hospitalization Category Date Time Status CT angio head neck [CT angio headneck* [id number]] Cat Scan 12/04/23 18:[address] head wo con* [id number] Stat Cat Scan 12/04/23 15:10 Completed XR chest 1V portable [id number] Stat Exams 12/04/23 13:31 Completed MR head wo con* [id number] Stat MRI 12/05/23 18:37 Completed Laboratory Last Values WBC 9.61 10^3/uL (3.29-11.43) 12/05/23 03:27 RBC 4.62 10^6/uL (3.85-5.65) 12/05/23 03:27 Hgb 13.60 g/dL (11.27-16.99) 12/05/23 03:27 Hct 40.5 % (37-53) 12/05/23 03:27 MCV 87.7 fl (82-101) 12/05/23 03:27 MCH 29.4 pg (27-33) 12/05/23 03:27 MCHC 33.6 g/dL (30-55) 12/05/23 03:27 RDW 13.2 % (12.1-15.1) 12/05/23 03:27 Plt Count 285 10^3/cmm (157-399) 12/05/23 03:27 MPV 8.9 fL (7.4-10.4) 12/05/23 03:27 Neut % (Auto) 71.2 % 12/05/23 03:27 Lymph % (Auto) 17.9 % 12/05/23 03:27 Gregg % (Auto) 9.3 % 12/05/23 03:27 Eos % (Auto) 0.7 % 12/05/23 03:27 Baso % (Auto) 0.7 % 12/05/23 03:27 Neut # (Auto) 6.84 10^3/uL (1.8-7.7) 12/05/23 03:27 Lymph # (Auto) 1.7 10^3/uL (0.8-4.8) 12/05/23 03:27 Gregg # (Auto) 0.9 10^3/uL (0.2-0.9) 12/05/23 03:27 Eos # (Auto) 0.1 10^3/uL (0.0-0.8) 12/05/23 03:27 Baso # (Auto) 0.1 10^3/uL (0.0-0.1) 12/05/23 03:27 Nucleated RBC % (auto) 0 % 12/05/23 03:27 Nucleated RBCs # 0.0 /100WBC 12/05/23 03:27 ESR 16 mm/hr (0-10) H 12/04/23 14:20 PT 13.10 SECONDS (12.1-14.9) 12/04/23 14:20 INR 0.96 (0.8-1.2) 12/04/23 14:20 Specimen Type Arterial 12/04/23 18:42 Sample Site Radial, left 12/04/23 18:42 ABG pH 7.42 (7.35-7.45) 12/04/23 18:42 ABG pCO2 35.1 mmHg (35-45) 12/04/23 18:42 ABG pO2 78.6 mmHg (80.0-100.0) L 12/04/23 18:42 ABG PO2/FiO2 Ratio 374 12/04/23 18:42 ABG HCO3 23.0 mmol/L (22-26) 12/04/23 18:42 ABG Base Excess -0.9 mmol/L (-2.0-2.0) 12/04/23 18:42 Pablo Test Pos 12/04/23 18:42 Hematocrit 47.9 % (42-52) 12/04/23 18:42 O2 Delivery Device Room air 12/04/23 18:42 FiO2 21.0 % 12/04/23 18:42 [employer] ID Cak 12/04/23 18:42 Sodium 139 mmol/L (136-145) 12/05/23 03:27 Potassium 4.1 mmol/L (3.5-5.1) 12/05/23 03:27 Chloride 105 mmol/L (98-107) 12/05/23 03:27 Carbon Dioxide 24 mmol/L (22-29) 12/05/23 03:27 Anion Gap 14.1 (5-19) 12/05/23 03:27 BUN 17 mg/dL (8-23) 12/05/23 03:27 Creatinine 1.0 mg/dL (0.7-1.2) 12/05/23 03:27 GFR Calculation Not Reportable 12/05/23 03:27 Glucose 113 mg/dL (65-115) 12/05/23 03:27 Estimat Average Glucose 120 12/04/23 20:35 Hemoglobin A1c 5.8 % (4.0-6.0) 12/04/23 20:35 Calculated Osmolality 290 mOsm/kg (285-295) 12/05/23 03:27 Lactic Acid 0.9 mmol/L (0.5-2.2) 12/04/23 14:20 Calcium 9.1 mg/dL (8.5-10.5) 12/05/23 03:27 Magnesium 2.1 mg/dL (1.7-2.3) 12/05/23 03:27 Total Bilirubin 0.5 mg/dL (0.15-1.2) 12/04/23 14:20 AST 19 U/L (0-40) 12/04/23 14:20 ALT 24 U/L (0-41) 12/04/23 14:20 Alkaline Phosphatase 63 U/L (40-130) 12/04/23 14:20 Troponin T Baseline 8 ng/L (0-15) 12/04/23 14:20 Troponin T 120 Minute 7.55 ng/L (0-15) 12/04/23 17:12 Delta Troponin T -0.45 ABS# (0-10) L 12/04/23 17:12 Troponin T Hi Sens 6Hr 10.40 ng/L (0-15) 12/04/23 20:35 Troponin T Hi Sens 6Hr Delta 2.40 ng/L (0-12) 12/04/23 20:35 C-Reactive Protein 4.3 mg/L (0.0-4.9) 12/04/23 14:20 NT-Pro-B Natriuret Pep 56 pg/mL (0-125) 12/04/23 14:20 NT-Pro-B Natriuret Pep 59 pg/mL (0-125) 12/04/23 14:20 Total Protein 6.9 g/dL (6.6-8.7) 12/04/23 14:20 Albumin 4.5 g/dL (3.5-5.2) 12/04/23 14:20 Globulin 2.4 g/dL (1.3-4.6) 12/04/23 14:20 Triglycerides 100 mg/dL (0-150) 12/04/23 20:35 Cholesterol 175 mg/dL (0-200) 12/04/23 20:35 LDL Cholesterol, Calc 118 mg/dL (50-129) 12/04/23 20:35 HDL Cholesterol 37 mg/dL (60-100) L 12/04/23 20:35 LDL/HDL Ratio 3.19 RATIO (0.00-3.22) 12/04/23 20:35 Cholesterol/HDL Ratio 4.73 mg/dL (1.0-5.00) 12/04/23 20:35 Lipase 29 U/L (13-60) 12/04/23 14:20 Procalcitonin 0.07 ng/mL (0-0.5) 12/04/23 14:20 TSH 2.82 uIU/mL (0.27-4.20) 12/04/23 20:35 Urine Color Yellow (Yellow) 12/04/23 19:18 Urine Appearance Clear (CLEAR) 12/04/23 19:18 Urine pH 7.0 (5-7) 12/04/23 19:18 Ur Specific Wink 1.005 (1.005-1.030) 12/04/23 19:18 Urine Protein Negative (Negative) 12/04/23 19:18 Urine Glucose (UA) Negative (Normal) 12/04/23 19:18 Urine Ketones Negative (Negative) 12/04/23 19:18 Urine Blood Negative (Negative) 12/04/23 19:18 Urine Nitrate Negative (Negative) 12/04/23 19:18 Urine Bilirubin Negative (Negative) 12/04/23 19:18 Urine Urobilinogen 1.0 mg/dL (Negative) 12/04/23 19:18 Ur Leukocyte Esterase Trace (Negative) A 12/04/23 19:18 Urine RBC 0-2 /hpf (0-2) 12/04/23 19:18 Urine WBC 0-5 /hpf (0-5) 12/04/23 19:18 Ur Squamous Epith Cells 0-5 /hpf (0-5) 12/04/23 19:18 Amorphous Sediment Not Reportable 12/04/23 19:18 Urine Bacteria None seen /hpf (NONE) 12/04/23 19:18 Hyaline Casts 0-4 /lpf H 12/04/23 19:18 Salicylates < 0.3 mg/dL (3-10) L 12/04/23 14:20 Urine Opiates Screen Negative ng/mL (Negative) 12/04/23 19:18 Acetaminophen < 5.0 ug/mL (10-30) L 12/04/23 14:20 Ur Barbiturates Screen Negative ng/mL (Negative) 12/04/23 19:18 Ur Phencyclidine Scrn Negative ng/mL (Negative) 12/04/23 19:18 Ur Amphetamines Screen Negative ng/mL (Negative) 12/04/23 19:18 U Benzodiazepines Scrn Negative ng/mL (Negative) 12/04/23 19:18 Urine Cocaine Screen Negative ng/mL (Negative) 12/04/23 19:18 U Marijuana (THC) Screen Negative ng/mL (Negative) 12/04/23 19:18 Radiology Impressions Chest X-Ray 12/04/23 13:31 IMPRESSION: No acute cardiopulmonary process. Head CT 12/04/23 15:10 IMPRESSION: No large territorial infarct or intracranial bleed. Head/Neck CTA 12/04/23 18:37 IMPRESSION: 1. Occluded left internal carotid artery of the intracranial segments. 2. Diminutive flow of the left vertebral artery. IMPRESSION: 1. 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 2. Diminutive flow left vertebral artery throughout its cervical course suggesting underlying significant stenosis. 3. Severe stenosis at the origin of the right internal carotid artery. THIS REPORT CONTAINS FINDINGS THAT MAY BE CRITICAL TO PATIENT CARE. The findings were verbally communicated via telephone conference with Dr. Mcdonald at 8:27 PM CDT on 12/04/2023. The findings were acknowledged and understood. REFERENCES: NASCET CRITERIA. The degree of stenosis in the cervical segment of the internal carotid artery is based on NASCET criteria. Normal is no stenosis. Mild is less than 50% stenosis. Moderate is 50-69% stenosis. Severe is 70% to 99% stenosis. Total occlusion is no detectable patent lumen. Head MRI 12/05/23 18:37 IMPRESSION: 1. Numerous foci of acute ischemia both cerebral hemispheres mainly subcortical and deep frontal parietal white matter either embolic or watershed in etiology. No evidence of acute ischemia in the cerebellum or brainstem. 2. No significant mass effect or midline shift. No hydrocephalus. 3. Moderate small vessel changes with mild parenchymal volume loss. 4. Chronic encephalomalacia LEFT cerebellum due to prior remote infarct. 5. Chronic lacunar infarcts RIGHT cerebellum. Notified Horace Talley MD at 12/05/2023 11:10 AM. Recent Clincial Data Last Vital Signs Temp 98.3 F 12/05/23 08:00 Pulse 72 12/05/23 08:00 Resp 16 12/05/23 08:00 BP 156/68 12/05/23 08:00 Pulse Ox 95 12/05/23 08:00 O2 Del Method Room Air 12/05/23 08:00 O2 Flow Rate 95 12/04/23 20:00 FiO2 21 12/04/23 20:53 Vital Signs Temp Pulse Resp BP Pulse Ox O2 Del Method 12/05/23 08:00 98.3 F 72 16 156/68 95 Room Air 12/05/23 05:37 71 12/05/23 04:00 98.2 F 82 19 H 139/63 92 Room Air Intake & Output/Weight 12/03/23 12/04/23 12/05/23 12/06/23 06:59 06:59 06:59 06:59 Intake Total 1000 / 1000 1360 / 1360 Balance 1000 / 1000 1360 / 1360 Weight 81.647 kg Vitals Last Vital Signs Temp 98.3 F 12/05/23 08:00 Pulse 72 12/05/23 08:00 Resp 16 12/05/23 08:00 BP 156/68 12/05/23 08:00 Pulse Ox 95 12/05/23 08:00 O2 Del Method Room Air 12/05/23 08:00 O2 Flow Rate 95 12/04/23 20:00 FiO2 21 12/04/23 20:53 TS Medications Medications Aspirin (Aspirin 81 Mg Ec Tablet) 81 mg PO DAILY [facility] Last Admin: 12/05/23 09:16 Dose: 81 mg Atorvastatin Calcium (Atorvastatin 40 Mg Tablet) 40 mg PO BEDTIME [facility] Last Admin: 12/04/23 20:39 Dose: 40 mg Doxycycline Monohydrate (Doxycycline 100 Mg Tablet) 100 mg PO BID [facility]; Protocol Last Admin: 12/05/23 09:16 Dose: 100 mg Sodium Chloride (Sodium Chloride 0.9%) 1,000 mls @ 75 mls/hr IV .[id number] [facility] Last Infusion: 12/05/23 10:29 Dose: Infused Morphine Sulfate (Morphine 4 Mg/Ml Sdv 1 Ml) 2 mg IVP Q4H PRN PRN Reason: SEVERE PAIN Ondansetron HCl (Ondansetron 2 Mg/Ml Sdv 2 Ml) 4 mg IVP Q8H PRN PRN Reason: vomiting, or N/V if npo Pantoprazole Sodium (Pantoprazole 40 Mg Sdv) 40 mg IVP Q24H [facility] Last Admin: 12/04/23 20:39 Dose: 40 mg Discontinued Medications Amlodipine Besylate (Amlodipine 10 Mg Tablet) 10 mg PO DAILY [facility] Last Admin: 12/05/23 09:16 Dose: 10 mg Aspirin (Aspirin 81 Mg Chew Tablet) 324 mg PO NOW ONE Stop: 12/04/23 18:10 Last Admin: 12/04/23 18:29 Dose: 324 mg Enoxaparin Sodium (Enoxaparin 40 Mg/0.4 Ml Syringe) 40 mg SUBCUT DAILY [facility] Hydralazine HCl (Hydralazine 20 Mg/Ml Inj 1 Ml) 10 mg IVP ONCE ONE Stop: 12/04/23 15:03 Last Admin: 12/04/23 15:25 Dose: 10 mg Hydralazine HCl (Hydralazine 20 Mg/Ml Inj 1 Ml) 10 mg IVP ONCE ONE Stop: 12/04/23 17:09 Last Admin: 12/04/23 17:59 Dose: 10 mg Hydralazine HCl (Hydralazine 20 Mg/Ml Inj 1 Ml) 20 mg IVP ONCE ONE Stop: 12/04/23 17:54 Last Admin: 12/04/23 18:30 Dose: Not Given Sodium Chloride (Sodium Chloride 0.9%) 1,000 mls @ 999 mls/hr IV .Q1H1M ONE Stop: 12/04/23 19:43 Last Infusion: 12/04/23 20:48 Dose: Infused Iohexol (Iohexol 350 Mg/Ml 500 Ml Btl (Per Ml)) 0 ml IV ONCE ONE Stop: 12/04/23 18:57 Last Admin: 12/04/23 19:01 Dose: 100 ml Morphine Sulfate (Morphine 4 Mg/Ml Sdv 1 Ml) 4 mg IVP ONCE ONE Stop: 12/04/23 15:00 Last Admin: 12/04/23 15:41 Dose: Not Given Ondansetron HCl (Ondansetron 2 Mg/Ml Sdv 2 Ml) 4 mg IVP ONCE ONE Stop: 12/04/23 15:00 Last Admin: 12/04/23 15:22 Dose: 4 mg Allergies No Known Allergies Allergy (Verified 12/04/23 13:30) Home Medications amlodipine 5 mg tablet 5 mg PO DAILY #90 tabs 01/04/23 [Rx Confirmed 12/04/23] alprazolam 0.5 mg tablet 0.5 mg PO .bed time PRN sleep 60 days #60 tabs 02/26/24 [Rx Confirmed 12/04/23] zolpidem 10 mg tablet (Ambien) 10 mg PO ONCE PRN insomnia #10 tabs 11/29/23 [Rx Confirmed 12/04/23] Discharge Plan Discharge Patient Disposition: Home Condition: Stable Prescriptions: Continued alprazolam 0.5 mg tablet 0.5 mg PO .bed time PRN (Reason: sleep) 60 Days Qty: 60 2RF Hold Instructions: Dose Change Rx Instructions: intended request of 60 d rx zolpidem [Ambien] 10 mg tablet 10 mg PO ONCE PRN (Reason: insomnia) Qty: 10 0RF Rx Instructions: begin w 1/2 tablet every other night Discontinued amlodipine 5 mg tablet 5 mg PO DAILY Qty: 90 3RF Rx Instructions: ok to begin w 1/2 tab daily Discharge Orders: Transfer Out of Facility (Order); Ordered 12/05/23 Ordered By: Horace Talley Referrals: Bry Kwon MD [Primary Care Provider] - Patient Instructions: Opioid Safety Transfer Attestations Time Spent in Transfer Care: greater than 30 min Quality Metrics Clinical Quality Measures [ Cerebrovascular Accident { Contraindication to Antithrombotic: None; antithrombotic prescribed; Contraindication to Anticoagulation: Overlap treatment not indicated; Contraindication to Statin: None; Statin prescribed;}] Coding Level of Care Code Critical Care >/= 30 minutes Critical care time (in minutes): 45 The high probability of a clinically significant, sudden or life threatening deterioration, as referenced in this documentation, required my full and direct attention, intervention and personal management. The critical care time shown is in addition to time spent performing any reported separately billable procedures and includes the following: [x] Data and vital sign review and interpretation [x ] Patient assessment, examination and intervention [x] Medication orders and management [x] Patient/Family updates as able [x] Care Coordination and Documentation. Diagnoses Mental status alteration R41.82 Cerebral vascular disease I67.9 Hypertension I10 Chest pain R07.9 Hypercholesteremia E78.00
[2023-12-05] MEDS: sodium chloride 0.9% 1,000 ML 75 ML IV (12:17)
[2023-12-05] MEDS: acetaminophen 325 mg Tablet 650 MG PO (15:41)
--- NOTE | 2023-12-05 16:53 | PC.NURSE ---
Report called to [facility] Spoke to Soni Ramirez RN and provided update on pt's neurological status such as pt's only oriented to person and birthday, requires repetition to follow and understand simple commands, visual daze noted this morning. headache started this afternoon. no weakness or paralysis on bilateral upper and lower ext. pt is transferring for neurology eval and vascular intervention on right ica stenosis.
--- NOTE | 2023-12-05 17:28 | PC.NURSE ---
air evac transport is here to load pt and transfer to [facility]. All belongings sent with pt's . Notified [facility] staff to let them know pt is on his way there. message relayed to staff with pt's last BM per was yesterday.
--- NOTE | 2023-12-05 18:37 | USCV_ITS ---
Dony Padilla Age: 73 Gender: M : 1950 Exam Date: 12/05/2023 07:10 Ordering Phys: Horace Talley MD Technologist: Exam Location: [facility] Indication: chest pain BP: 134 / 76 HR: 67 Rhythm: Sinus Technical Quality: Adequate MEASUREMENTS (Male / Female) Normal Values 2D ECHO LV Diastolic Diameter PLAX 3.8 cm 4.2 - 5.9 / 3.9 - 5.3 cm IVS Diastolic Thickness 1.1 cm 0.6 - 1.0 / 0.6 - 0.9 cm IVS Systolic Thickness 1.7 cm LVPW Diastolic Thickness 1.0 cm 0.6 - 1.0 / 0.6 - 0.9 cm LVPW Systolic Thickness 1.6 cm LVOT Diameter 2.0 cm LV Ejection Fraction 2D Teich 65.0 % LV Ejection Fraction MOD 4C 74.9 % LV Ejection Fraction MOD 2C 61.5 % LV Ejection Fraction 2C AL 65.9 % LA Diameter 3.2 cm RA Systolic Volume 4C AL 35.8 ml RA Systolic Volume 4C MOD 35.1 ml Aorta at Sinotubular Diameter 2.3 cm IVC Diameter 2.2 cm M-MODE LA Ao Ratio MM 1.1 AV Cusp Separation MM 2.2 cm DOPPLER AV Peak Velocity 143.3 cm/s LVOT Peak Velocity 98.0 cm/s AV Area Cont Eq vti 2.4 cm squared AV Area Cont Eq pk 2.2 cm squared MV Peak Velocity 100.0 cm/s MV Area PHT 4.7 cm squared Mitral E to A Ratio 0.8 TV Peak Velocity 171.0 cm/s TR Peak Velocity 233.0 cm/s TR Peak Gradient 21.7 mmHg Right Atrial Pressure 3.0 mmHg Pulmonary Artery Systolic Pressu 24.7 mmHg PV Peak Velocity 117.0 cm/s FINDINGS Left Ventricle Normal left ventricular size and systolic function, EF 66%.moderate left ventricular hypertrophy. No regional wall motion abnormalities. Grade I/IV diastolic dysfunction (abnormal relaxation filling pattern), normal to mildly elevated filling pressures. Right Ventricle The right ventricle is normal in size and function. Right Atrium The right atrium is normal in size. Left Atrium The left atrium is normal in size. Mitral Valve Trace mitral valve regurgitation. Aortic Valve Thickened aortic valve. Tricuspid Valve Trace to mild tricuspid valve regurgitation. Pulmonic Valve Pulmonic valve not well visualized. Pericardium Normal pericardium without effusion. Aorta Normal ascending aorta dimension. IVC Normal inferior vena cava. CONCLUSIONS Normal left ventricular size and systolic function, EF 66%.moderate left ventricular hypertrophy. No regional wall motion abnormalities. Grade I/IV diastolic dysfunction (abnormal relaxation filling pattern), normal to mildly elevated filling pressures. Trace mitral valve regurgitation. Thickened aortic valve. Trace to mild tricuspid valve regurgitation. There is no pericardial effusion. There are no intracardiac masses. Compared to the study from 06/23/2020, there may not be a significant change Dr Stefano Page MD FACC (Electronically Signed) Final Date: 05 December 2023 23:19 S
--- NOTE | 2023-12-05 18:37 | MR_ITS ---
WS: [id number] MRI HEAD WITHOUT CONTRAST TECHNIQUE: Sagittal T1, T2 axial, T2 axial FLAIR, axial and coronal T1 images, axial susceptibility w eighted imaging, axial diffusion weighted images, and coronal T2 images were obtained. CLINICAL INFORMATION: ams COMPARISON: MRI 2020 FINDINGS: Numerous punctate foci of acute ischemia in both cerebral hemispheres mainly in the deep frontal ne etal and subcortical white matter. This is likely watershed or embolic in etiology. Loss of the lupe l LEFT ICA flow void at the skull base compatible with LEFT ICA occlusion in the neck. Large chronic infarct LEFT cerebellar hemisphere with encephalomalacia. Chronic infarcts in the RIGHT cerebellum. Moderate small vessel changes. Mild parenchymal volume loss. Chronic hemosiderin in the LEFT cerebellum. Normal optic chiasm and pituitary infundibulum. Paranasal sinuses are well aerated. Mastoid air cells are well aerated. Normal basilar and RIGHT ICA flow void. Chronic lacunar infarcts LEFT greater than RIGHT basal ganglia. MR/MR head wo con* [id number] IMPRESSION: 1. Numerous foci of acute ischemia both cerebral hemispheres mainly subcortica l and deep frontal parietal white matter either embolic or watershed in etiolog y. No evidence of acute ischemia in the cerebellum or brainstem. 2. No significant mass effect or midline shift. No hydrocephalus. 3. Moderate small vessel changes with mild parenchymal volume loss. 4. Chronic encephalomalacia LEFT cerebellum due to prior remote infarct. 5. Chronic lacunar infarcts RIGHT cerebellum. Notified Hroace Talley MD at 12/05/2023 11:10 AM.
[2023-12-06 15:34] LABS: Lyme AB Screen <0.90 index; Lymes IGG WB <0.90 index
[2023-12-11 15:33] LABS: E. Chaffeensis AB IGG <1:64; E. Chaffeensis AB IGM <1:20
[2023-12-13 17:19] LABS: RMSF IGG NOT DETECTED; RMSF IGM NOT DETECTED
== END 2023-12-05 17:31 | disposition short-term general hospital (02) | DRG 66 ==
LOC: ER 18:31 → MEDSURG 19:05
PROVIDERS: Admitting Provider Family Medicine; Emergency Provider Emergency Medicine; PCP Family Medicine; Visit Provider Family Medicine
DX: I63.233 Cerebral infarction due to unspecified occlusion or stenosis of bilateral carotid arteries (principal); I10 Essential (primary) hypertension; R29.705 NIHSS score 5; R07.9 Chest pain, unspecified; E78.00 Pure hypercholesterolemia, unspecified; Z86.73 Personal history of transient ischemic attack (TIA), and cerebral infarction without residual deficits
CPT/HCPCS: 36415; 36600; 70450; 70496; 70498; 70551; 71045; 80048; 80053; 80061; 80306; 80307; 81003; 81015; 82175; 82803; 83036; 83605; 83655; 83690; 83735; 83825; 83880; 84145; 84443; 84484; 85025; 85610; 85651; 86140; 86617; 86618; 86666; 86757; 87040; 92523; 92610; 93005; 93306; 94664; 96374; 96375; 96376; 99285; G0378; J0360; J2405; J2470; J7030; Q9967

== ENCOUNTER 2024-01-02 09:29 | Outpatient (RCR) | payer MEDICARE, SELFPAY | END 2024-01-16 23:59 | disposition home or self-care (01) | LOC: SPO 09:29 | PROVIDERS: Visit Provider Nurse Practitioner | DX: I65.23 Occlusion and stenosis of bilateral carotid arteries (principal); I63.30 Cerebral infarction due to thrombosis of unspecified cerebral artery | CPT/HCPCS: 97110; 97162; 97167; 97530 ==

== ENCOUNTER 2024-01-17 06:00 | Outpatient (RCR) | payer MEDICARE, SELFPAY | END 2024-02-13 23:59 | disposition home or self-care (01) | LOC: SPO 06:00 | PROVIDERS: Visit Provider Nurse Practitioner | DX: I65.23 Occlusion and stenosis of bilateral carotid arteries (principal); I63.30 Cerebral infarction due to thrombosis of unspecified cerebral artery | CPT/HCPCS: 97110; 97112; 97530 ==

== ENCOUNTER → 2024-02-06 12:25 | Outpatient (BNVA) | payer MEDICARE, SELFPAY | PROVIDERS: PCP Family Medicine; Visit Provider Family Medicine | DX: E78.00 Pure hypercholesterolemia, unspecified (principal); I10 Essential (primary) hypertension; E78.5 Hyperlipidemia, unspecified | CPT/HCPCS: 80053; 80061; 85025 ==

== ENCOUNTER → 2024-02-14 12:32 | Outpatient (BNVA) | payer MEDICARE, SELFPAY | PROVIDERS: PCP Family Medicine; Referring Provider Family Medicine; Visit Provider Surgery | DX: Z12.11 Encounter for screening for malignant neoplasm of colon (principal) | CPT/HCPCS: 99024; 99203 ==

== ENCOUNTER 2024-03-01 06:33 | Day surgery (SDC) | payer MEDICARE, SELFPAY ==
--- NOTE | 2024-03-01 05:54 | W.PM.OPSUD ---
Surgery/Procedure H&P Update DATE OF PROCEDURE: March 01, 2024 DATE H&P PERFORMED: 02/14/24 H&P UPDATE INFORMATION: I have reviewed H&P completed within last 30 days, I have examined patient prior to procedure, No changes to prior documentation and H&P is in [facility] [place] on date indicated PLANNED PROCEDURE: Operation Date: 03/01/24 08:20 Proposed Procedures p EGD(Not Applicable) - Gustavo Stevens MD s Colonoscopy- 09631, 62572, g0121, k21.9, z12.11(Not Applicable) - Gustavo Stevens MD
[2024-03-01 07:01] VITALS: BP 142/76; PULSE 81; RESP 18; TEMP 36.7; O2SAT 95; BMI 25.8
[2024-03-01] MEDS: sodium chloride 0.9% 1,000 ML 30 ML IV (07:07)
--- NOTE | 2024-03-01 08:00 | ANES.PREANE2 ---
Pre-Anesthetic Assessment Height/Weight: Height 5 ft 6 in Weight 160 lb Temp Pulse Resp BP Pulse Ox O2 Del Method 98.0 F 81 18 142/76 95 Room Air 03/01/24 07:01 03/01/24 07:01 03/01/24 07:01 03/01/24 07:01 03/01/24 07:01 03/01/24 07:01 Preop Diagnosis: Screening colonoscopy Operation Date: 03/01/24 08:20 Proposed Procedures p EGD(Not Applicable) - Gustavo Stevens MD s Colonoscopy- 79280, 37442, g0121, k21.9, z12.11(Not Applicable) - Gustavo Stevens MD Was Beta Grady taken within 24 hours: N/A Was Clonidine taken within 24 hours: N/A Last intake: Intake Last Liquid Date 02/29/24 Last Liquid Time 20:00 Last Solid Date 02/28/24 Last Solid Time 18:00 Social No alcohol and No tobacco Exam alert, oriented x 3, clear to auscultation bilaterally and regular rate & rhythm Airway Submandibular: within normal limits Cervical ROM: Other (Limited neck extension) Mallampati: Class III Dentition: false Anesthetic Plan ASA status: 3 Anesthesia: MAC Other: No prior issues with anesthesia Completed bowel prep Carotid endarterectomy in November 2023. Patient reports 100% occlusion on the left side but they told him it is inoperable. Patient had a stroke just prior to carotid surgery with residual right-sided weakness Hypertension on amlodipine. Preop BP 142/76 Cervical neck issues Labs 02/06/2024 reviewed acceptable for procedure Plan for MAC anesthesia Medications/Allergies Home Medications Medication Instructions Recorded Confirmed Last Taken Type aspirin 325 mg tablet 325 mg PO DAILY #90 tabs 12/20/23 02/28/24 02/25/24 Rx atorvastatin 20 mg tablet 20 mg PO DAILY #90 tabs 02/06/24 02/28/24 02/28/24 Rx amlodipine 5 mg tablet 5 mg PO DAILY 02/28/24 02/28/24 03/01/24 06:00 History zolpidem 10 mg tablet (Ambien) 10 mg PO DAILY PRN insomnia 02/28/24 02/28/24 02/29/24 History Allergies Allergy/AdvReac Type Severity Reaction Status Date / Time No Known Allergies Allergy Verified 02/28/24 09:15 Current Medications Generic Name Dose Route Start Last Admin Trade Name Leidy PRN Reason Stop Dose Admin Sodium Chloride 1,000 mls @ 30 mls/hr 03/01/24 06:45 03/01/24 07:07 Sodium Chloride 0.9% IV 30 mls/hr .Q24H TOSHIA Administration PFSH Anesthesia Medical History (Updated 02/14/24 @ 13:[address]) COVID-19 vaccine regimen to maintain immunity completed Moderna Booster on 04/25/2021 Decreased glomerular filtration rate (GFR) Cerebral vascular disease Constipation Dyslipidemia Acute CVA (cerebrovascular accident) HTN (hypertension) 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, dysarthria Family History Other Cancer Social History Smoking and tobacco/nicotine status: never used tobacco/nicotine Alcohol intake: current Alcohol intake frequency: holidays/special occasions only Alcohol type: wine Substance/Drug Use: never Household members: spouse Marital status: Current occupational status: employed Current occupation: [employer] Anesthesia Cardiac Studies: Echocardiogram 12/05/23 Echocardiogram Ultrasound 06/23/20
[2024-03-01 08:43] VITALS: BP 84/61; PULSE 72; RESP 17; TEMP 36.2; O2SAT 95
[2024-03-01 08:55] VITALS: BP 82/64; PULSE 68; RESP 15; O2SAT 96
[2024-03-01 09:05] VITALS: BP 103/59; PULSE 67; RESP 17; O2SAT 98
[2024-03-01 09:15] VITALS: BP 146/70; PULSE 78; RESP 18; O2SAT 98
--- NOTE | 2024-03-01 09:42 | ANE.PACU2 ---
Inpatient post-anesthesia follow up: Airway intact: Yes Vital signs: Temperature 97.2 F Pulse Rate 78 Respiratory Rate 18 Blood Pressure 146/70 Pulse Oximetry 98 Oxygen Delivery Me thod Room Air Oxygen Flow Rate Fraction of Inspir ed Oxygen Hydration adequate: Yes Nausea and vomiting: No Pain level: 1 Mental status: Baseline
== END 2024-03-01 09:42 | disposition home or self-care (01) ==
PROVIDERS: PCP Family Medicine; Visit Provider Surgery
PROC: 0DJ08ZZ Inspection of Upper Intestinal Tract, Via Natural or Artificial Opening Endoscopic (ICD-10-PCS; CPT 43235; principal; 2024-03-01 08:20)
PROC: 0DJD8ZZ Inspection of Lower Intestinal Tract, Via Natural or Artificial Opening Endoscopic (ICD-10-PCS; CPT 45378; 2024-03-01 08:20)
DX: Z12.11 Encounter for screening for malignant neoplasm of colon (principal); K21.00 Gastro-esophageal reflux disease with esophagitis, without bleeding; K57.30 Diverticulosis of large intestine without perforation or abscess without bleeding; K29.80 Duodenitis without bleeding; K29.70 Gastritis, unspecified, without bleeding; Z79.82 Long term (current) use of aspirin; E78.5 Hyperlipidemia, unspecified; I10 Essential (primary) hypertension; Z86.73 Personal history of transient ischemic attack (TIA), and cerebral infarction without residual deficits
CPT/HCPCS: 43239; 88305; G0121; J2704; J7030

== ENCOUNTER → 2024-03-14 11:07 | Outpatient (BNVA) | payer MEDICARE, SELFPAY | PROVIDERS: PCP Family Medicine; Visit Provider Surgery | DX: Z09 Encounter for follow-up examination after completed treatment for conditions other than malignant neoplasm (principal) | CPT/HCPCS: 99213 ==

== ENCOUNTER 2024-03-29 11:06 | Outpatient (RCR) | payer MEDICARE, SELFPAY | END 2024-04-17 23:59 | disposition home or self-care (01) | LOC: SPT 11:06 | PROVIDERS: PCP Family Medicine; Visit Provider Family Medicine | DX: R42 Dizziness and giddiness (principal) | CPT/HCPCS: 95992; 97161 ==

== ENCOUNTER 2024-06-13 15:46 | Emergency (ER) | payer MEDICARE, SELFPAY ==
--- NOTE | 2024-06-13 15:51 | XRR_ITS ---
PROCEDURE INFORMATION: Exam: XR Chest Exam date and time: 06/13/2024 4:04 PM Age: 73 years old Clinical indication: Cough TECHNIQUE: Imaging protocol: Radiologic exam of the chest. Views: 1 view. COMPARISON: CR (CHEST, ) 12/04/2023 1:48 PM FINDINGS: Lungs: No focal consolidation or other acute appearing pulmonary opacity. Multiple calcified granulomas. Pleural spaces: No pleural effusion or pneumothorax noted. Heart/Mediastinum: There is no cardiomegaly. Bones/joints: No acute osseous abnormality. Intraperitoneal space: There is no free intraperitoneal gas. XR/XR chest 1V portable [id number] IMPRESSION: No acute findings.
[2024-06-13 15:54] VITALS: BP 189/90; PULSE 68; RESP 17; TEMP 36.6; O2SAT 97; BMI 27.2
--- NOTE | 2024-06-13 15:59 | ECG_ITS ---
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
--- NOTE | 2024-06-13 16:43 | PC.PHAR ---
PATIENT STATES HE STOPPED ATORVASTATIN BECAUSE THE DOC SAID HIS CHOLESTEROL IS BETTER
--- NOTE | 2024-06-13 16:48 | ED_ITS ---
HPI - Chest Pain 2 General: Chief Complaint: Chest Pain Stated Complaint: congestion Time Seen by Provider: 06/13/24 15:56 Source: patient Mode of arrival: ambulatory Limitations: no limitations History of Present Illness: Patient is a 73-year-old male who presents emergency department complaining of substernal chest pain and sore throat that is been going on for a year. Patient has multiple complaints, but he states that the substernal pain has started to worsen recently due to the cold weather and being outside. He states that the pain is a burning sensation and feels like acid reflux, however his medications have not been helping. States that the pain will sometimes radiate to his left upper and right upper quadrant of his abdomen. He states he recently underwent upper endoscopy as well as colonoscopy that was reportedly normal. He states that he is concerned because he thinks he has a hole in his esophagus and that it is infected. He denies any shortness of breath. Denies any fever, nausea/vomiting/diarrhea, hemoptysis or hematemesis, history of liver cirrhosis or other liver abnormalities, or any other concerning symptoms or historical factors. However he does note a history of a couple of strokes, he takes aspirin daily but is not on a blood thinner. Denies history of esophageal varices. States that the pain seems to be made better if he drinks hot liquid such as apple cider. Patient also has a history of ventral hernia. He was recently seen by primary care for the same complaint. Was recommended at that time that he be further monitored and treated conservatively at home and may potentially need functional study with barium for further evaluation. Results of his recent endoscopy on 03/01/2024 showed unremarkable gastric mucosa with no signs of malignancy or H. pylori organisms, no small bowel major abnormalities, and mild esophageal squamous and cardia inflammation consistent with GERD. complaint: chest pain Onset (ago): year(s) Timing of current episode: now resolved Prior episodes: Yes Onset: during exertion Pain location: substernal Pain radiation: abdomen Severity: mild Quality: burning Relieving factors: other (Drinking hot liquid) Exacerbating factors: exertion (Specifically outside in the cold weather) Associated symptoms: Deny abdominal pain, dyspnea, fever(s), nausea, palpitations or vomiting Treatment prior to arrival: other (Pantoprazole) Related Data Previous Rx's ?Medication ?Instructions ?Recorded aspirin 325 mg tablet 325 mg PO DAILY #90 tabs 07/09 pantoprazole 40 mg tablet,delayed 40 mg PO DAILY 30 da ys #30 tabs 03/14/24 release amlodipine 5 mg tablet See Rx Instructions .Route 1 06/03/23 .COMPLEX #90 tabs zolpidem 10 mg tablet (Ambien) 10 mg PO DAILY PRN inso mnia #30 05/28/24 tabs Allergies Allergy/AdvReac Type Severity Reaction Status Date / Time No Known Allergies Allergy Verified 06/13/24 16:00 Review of Systems 2 General: Reports: 10 or more systems reviewed and unremarkable except in HPI and below Const: Denies: fever(s), chills or fatigue Eyes: Denies: change in vision ENMT: Reports: throat pain; Denies: ear or mastoid pain or nasal discharge Card: Reports: chest pain; Denies: palpitations, swelling of feet/ankles or lightheadedness Resp: Denies: dyspnea, productive cough or wheezing GI: Denies: abdominal pain, nausea, vomiting, diarrhea or constipation : Denies: flank pain, difficulty urinating, dysuria or urinary frequency Musc: Denies: neck pain, back pain or joint pain Skin/Breast: Denies: rash Neuro: Denies: headache(s), numbness in extremities or weakness in extremities PFSH ED 2 PFSH: Medical History COVID-19 vaccine regimen to maintain immunity completed Moderna Booster on 04/25/2021 Decreased glomerular filtration rate (GFR) Cerebral vascular disease Constipation Dyslipidemia Acute CVA (cerebrovascular accident) HTN (hypertension) 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, dysarthria Family History Other Cancer Social History Smoking and tobacco/nicotine status: never used tobacco/nicotine Alcohol intake: current Alcohol intake frequency: holidays/special occasions only Alcohol type: wine Substance/Drug Use: never Household members: spouse Marital status: Current occupational status: employed Current occupation: [employer] Physical Exam 2 Const: COMMON NORMALS: no acute distress, patient oriented x3 and no limitations GENERAL APPEARANCE: cooperative, comfortable and well developed ORIENTATION/CONSCIOUSNESS: Yes awake, Yes oriented to person, Yes oriented to place and Yes oriented to time HENMT: COMMON NORMALS: normocephalic, atraumatic, hearing grossly normal bilaterally, moist oral mucous membranes and oropharynx normal HEAD & SCALP: normocephalic and atraumatic Eye: COMMON NORMALS: Equal, round and reactive pupils present, EOMs intact bilaterally and conjunctivae normal CONJUNCTIVA: Yes conjunctivae normal P UPIL: Yes Equal, round and reactive pupils present Neck/C-Spine: COMMON NORMALS: full ROM, supple and no JVD Resp: COMMON NORMALS: normal respiratory effort, No retractions, No use of accessory muscles and clear to auscultation bilaterally AUSCULTATION: clear to auscultation bilaterally Cardio: COMMON NORMALS: no JVD, regular rate, regular rhythm, No clicks present (Cardio), No murmurs present (Cardio) and No rub (Cardio) RATE: r egular rate RHYTHM: regular rhythm GI: COMMON NORMALS: Normal to inspection, nondistended, normoactive bowel sounds present, Soft to palpation and non-tender AUSCULTATION: Yes normoactive bowel sounds PALPATION: Yes Soft to palpation RECTAL EXAM: Yes deferred Extremity: COMMON NORMALS: normal to inspection, full ROM and capillary refill normal Neuro: COMMON NORMALS: patient oriented x3, moves all extremities, no focal motor deficits and no sensory deficits noted SENSORIUM/ORIENTATION: Yes oriented to person, Yes oriented to place and Yes oriented to time Skin: COMMON NORMALS: no rashes or lesions noted GENERAL SKIN EXAM: no rashes or lesions noted Course 2 Vital Signs: Vital signs: Vital Signs Temperature 98 F 06/13/24 15:54 Pulse Rate 68 06/13/24 15:54 Respiratory Rate 17 06/13/24 15:54 Blood Pressure 189/90 06/13/24 15:54 Pulse Oximetry 97 06/13/24 15:54 Oxygen Delivery Me thod Room Air 06/13/24 15:54 MDM - Chest Pain Medical Decision Making Patient presented with a year of burning substernal chest pain. Has had multiple workups including a recent EGD that was essentially unremarkable other than showing signs of GERD. Also has been following primary care with this as recently as couple of weeks ago. States he has been taking his pantoprazole but has been treating with hot apple cider with vinegar, that I actually think is making his symptoms worse. Informed him to stop doing this. He is given a GI cocktail here. Ultimately we did workup for any cardiac etiology, his baseline troponin was normal, EKG reviewed did not show any significant findings and chest x-ray is unremarkable. Rest of his lab work normal including no signs of infection. I believe that this is GERD related and will have him follow back up with primary care as it was mentioned with prior visits that he may benefit from barium swallow study. Patient is comfortable with this plan and is ready for discharge home. He verbalized understanding to return precautions. Lab Data 06/13/24 16:44 06/13/24 16:44 Radiology Impressions Chest X-Ray 06/13/24 15:51 IMPRESSION: No acute findings. Laboratory Results WBC 6.18 10^3/uL (3.29-11.43) 06/13/24 16:44 RBC 5.03 10^6/uL (3.85-5.65) 06/13/24 16:44 Hgb 14.60 g/dL (11.27-16.99) 06/13/24 16:44 Hct 43.5 % (37-53) 06/13/24 16:44 MCV 86.5 fl (82-101) 06/13/24 16:44 MCH 29.0 pg (27-33) 06/13/24 16:44 MCHC 33.6 g/dL (30-55) 06/13/24 16:44 RDW 12.9 % (12.1-15.1) 06/13/24 16:44 Plt Count 256 10^3/cmm (157-399) 06/13/24 16:44 MPV 8.4 fL (7.4-10.4) 06/13/24 16:44 Neut % (Auto) 61.9 % 06/13/24 16:44 Lymph % (Auto) 25.4 % 06/13/24 16:44 Rutherford % (Auto) 8.9 % 06/13/24 16:44 Eos % (Auto) 2.4 % 06/13/24 16:44 Baso % (Auto) 1.1 % 06/13/24 16:44 Neut # (Auto) 3.82 10^3/uL (1.8-7.7) 06/13/24 16:44 Lymph # (Auto) 1.6 10^3/uL (0.8-4.8) 06/13/24 16:44 Rutherford # (Auto) 0.6 10^3/uL (0.2-0.9) 06/13/24 16:44 Eos # (Auto) 0.2 10^3/uL (0.0-0.8) 06/13/24 16:44 Baso # (Auto) 0.1 10^3/uL (0.0-0.1) 06/13/24 16:44 Nucleated RBC % (auto) 0 % 06/13/24 16:44 Nucleated RBCs # 0.0 /100WBC 06/13/24 16:44 Sodium 139 mmol/L (136-145) 06/13/24 16:44 Potassium 4.4 mmol/L (3.5-5.1) 06/13/24 16:44 Chloride 103 mmol/L (98-107) 06/13/24 16:44 Carbon Dioxide 27 mmol/L (22-29) 06/13/24 16:44 Anion Gap 13.4 (5-19) 06/13/24 16:44 BUN 10 mg/dL (8-23) 06/13/24 16:44 Creatinine 1.0 mg/dL (0.7-1.2) 06/13/24 16:44 GFR Calculation Not Reportable 06/13/24 16:44 Glucose 99 mg/dL (65-115) 06/13/24 16:44 Calculated Osmolality 287 mOsm/kg (285-295) 06/13/24 16:44 Calcium 9.3 mg/dL (8.5-10.5) 06/13/24 16:44 Total Bilirubin 0.3 mg/dL (0.15-1.2) 06/13/24 16:44 AST 13 U/L (0-40) 06/13/24 16:44 ALT 12 U/L (0-41) 06/13/24 16:44 Alkaline Phosphatase 70 U/L (40-130) 06/13/24 16:44 Troponin T Baseline 11 ng/L (0-15) 06/13/24 16:44 Total Protein 6.6 g/dL (6.6-8.7) 06/13/24 16:44 Albumin 4.2 g/dL (3.5-5.2) 06/13/24 16:44 Globulin 2.4 g/dL (1.3-4.6) 06/13/24 16:44 Lipase 35 U/L (13-60) 06/13/24 16:44 Influenza A (PCR) Negative (Negative) 06/13/24 16:26 Influenza Type B (PCR) Negative (Negative) 06/13/24 16:26 RSV (PCR) Negative (Negative) 06/13/24 16:26 SARS-CoV-2 (PCR) Negative (Negative) 06/13/24 16:26 All radiology interpretation(s) finalized by discharge Discharge Plan Discharge Patient Disposition: Home Clinical Impression: Chest pain due to GERD Condition: Stable Prescriptions: No Action zolpidem [Ambien] 10 mg tablet 10 mg PO DAILY PRN (Reason: insomnia) Qty: 30 5RF aspirin 325 mg tablet 325 mg PO DAILY Qty: 90 0RF pantoprazole 40 mg tablet,delayed release (DR/EC) 40 mg PO DAILY 30 Days Qty: 30 6RF amlodipine 5 mg tablet See Rx Instructions .ROUTE .COMPLEX Qty: 90 2RF Dose Instruction: TAKE 1 TABLET BY MOUTH ONCE DAILY; MAY BEGIN WITH 1/2 TAB DAILY IF NEEDED Rx Instructions: TAKE 1 TABLET BY MOUTH ONCE DAILY; MAY BEGIN WITH 1/2 TAB DAILY IF NEEDED Discharge Orders: Discharge ED (Routine); Ordered 06/13/24 Ordered By: Gustavo Mendoza Referrals: Bry Kwon MD [Primary Care Provider] - Patient Instructions: Diet for Stomach Ulcers and Gastritis (ED), GERD (Gastroesophageal Reflux Disease) (ED) Activity Restrictions/Additional Instructions: Please see the attached patient instructions for education on dietary management and other conservative therapy for GERD. Please continue taking the pantoprazole. Follow-up with your primary care as we discussed for further evaluation. Return with any changes in your chest pain, or any other concerning symptoms that arise. Print Language: British Coding Level of Care Code ED Litigation Docket Manager for Saúl Mixon
[2024-06-13 16:51] LABS: Basophils # 0.1 10^3/uL (0.0-0.1); Basophils % 1.1 %; Eosinophils # 0.2 10^3/uL (0.0-0.8); Eosinophils % 2.4 %; Hematocrit 43.5 % (37-53); Lymphocytes # 1.6 10^3/uL (0.8-4.8); Lymphocytes % 25.4 %; Mean Corpuscular HGB Conc 33.6 g/dL (30-55); Mean Corpuscular Volume 86.5 fl (82-101); Mean Platelet Volume 8.4 fL (7.4-10.4); Monocytes # 0.6 10^3/uL (0.2-0.9); Monocytes % 8.9 %; Neutrophils # 3.82 10^3/uL (1.8-7.7); Neutrophils % 61.9 %; Nucleated Red Blood Cells % 0 %; Platelet Count 256 10^3/cmm (157-399); Red Blood Count 5.03 10^6/uL (3.85-5.65); Red Cell Distribution Width 12.9 % (12.1-15.1); White Blood Count 6.18 10^3/uL (3.29-11.43)
[2024-06-13 17:11] LABS: Troponin(5th) Baseline 11 ng/L (0-15)
[2024-06-13 17:13] LABS: Alanine Aminotransferase 12 U/L (0-41); Albumin Level 4.2 g/dL (3.5-5.2); Alkaline Phosphatase 70 U/L (40-130); Anion Gap 13.4 (5-19); Aspartate Amino Transferase 13 U/L (0-40); Blood Urea Nitrogen 10 mg/dL (8-23); Calcium 9.3 mg/dL (8.5-10.5); Carbon Dioxide 27 mmol/L (22-29); Chloride 103 mmol/L (98-107); Creatinine Clr Calc Pharmacy 66.0702; Globulin 2.4 g/dL (1.3-4.6); Glucose 99 mg/dL (65-115); Lipase 35 U/L (13-60); Osmolality Calculated 287 mOsm/kg (285-295); Potassium 4.4 mmol/L (3.5-5.1); Sodium 139 mmol/L (136-145); Total Bilirubin 0.3 mg/dL (0.15-1.2); Total Protein 6.6 g/dL (6.6-8.7)
[2024-06-13 17:20] LABS: Influenza A NEGATIVE (Negative); Influenza B NEGATIVE (Negative); Respiratory Syncytial Virus Ce NEGATIVE (Negative); SARS-CoV-2 PCR NEGATIVE (Negative)
[2024-06-13 18:00] VITALS: PULSE 69; O2SAT 95
== END 2024-06-13 18:01 | disposition home or self-care (01) ==
PROVIDERS: Emergency Medicine; Emergency Provider Physician Assistant; PCP Family Medicine
DX: K21.9 Gastro-esophageal reflux disease without esophagitis (principal); Z79.82 Long term (current) use of aspirin; Z11.52 Encounter for screening for COVID-19; Z86.73 Personal history of transient ischemic attack (TIA), and cerebral infarction without residual deficits; E78.5 Hyperlipidemia, unspecified; I10 Essential (primary) hypertension
CPT/HCPCS: 36415; 71045; 80053; 83690; 84484; 85025; 87637; 93005; 99285

== ENCOUNTER 2024-08-22 08:48 | Outpatient (CLI) | payer MEDICARE, SELFPAY ==
--- NOTE | 2024-08-22 15:15 | FL_ITS ---
NOTE: REPORT Did not cross to EMR, Original Signature date and time was: 08/22/24 @1204 FL barium swallow gastro [id number] REASON FOR EXAM: Chest pain FLUOROSCOPY TIME: 2min [id number] # OF SPOT FILMS: Multiple TECHNIQUE: The patient was examined in the standing upright and lateral projections, this prone WALL projection, the supine, and LPO positions. Swallowing of thin liquid barium was monitored fluoroscopically and multiple rapid sequence spot films obtained. FINDINGS: In the upright position the cervical esophagus demonstrated normal motility and anatomy with no laryngeal vestibule penetration or aspiration. In the standing position the thoracic esophagus demonstrated a small hiatal hernia with 6 nonobstructing Schatzki ring. With the patient in the prone WALL position the thoracic esophagus appeared normal. In the supine and LPO positions there was intermittent loss of the primary peristaltic wave which degenerated into tertiary contractions with some retrograde reflux of contrast from the midesophagus toward the thoracic inlet. No gastroesophageal reflux was elicited. No findings of esophagitis or esophageal ulcer are demonstrated. IMPRESSION: Small hiatal hernia. Esophageal dysmotility only elicited in the prone and supine positions as above. MTDD
== END 2024-08-22 08:49 | disposition home or self-care (01) ==
LOC: RAD 08:50
PROVIDERS: PCP Family Medicine; Visit Provider Family Medicine
DX: K43.9 Ventral hernia without obstruction or gangrene (principal); K21.9 Gastro-esophageal reflux disease without esophagitis; K22.2 Esophageal obstruction; K44.9 Diaphragmatic hernia without obstruction or gangrene; K22.4 Dyskinesia of esophagus; R93.89 Abnormal findings on diagnostic imaging of other specified body structures
CPT/HCPCS: 74220

== ENCOUNTER → 2024-09-25 12:20 | Outpatient (BNVA) | payer MEDICARE, SELFPAY | PROVIDERS: PCP Family Medicine; Visit Provider Internal Medicine | DX: R07.9 Chest pain, unspecified (principal); I10 Essential (primary) hypertension; E78.00 Pure hypercholesterolemia, unspecified; Z79.82 Long term (current) use of aspirin; Z86.73 Personal history of transient ischemic attack (TIA), and cerebral infarction without residual deficits; Z87.891 Personal history of nicotine dependence | CPT/HCPCS: 93005; 99204 ==

== ENCOUNTER 2024-10-11 07:06 | Outpatient (CLI) | payer MEDICARE, SELFPAY ==
--- NOTE | 2024-10-11 | ECG_ITS ---
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 Interpretive Statements LEXISCAN SESTAMIBI STRESS TEST Procedure: At the baseline, the blood pressure was 172/94 mmHg with a heart rate of 62 bpm. The electrocardiogram showed normal sinus rhythm, normal axis with normal ST and T's. The Lexiscan was infused over a period of 20 seconds. A total of 0.4 mg of Lexiscan was infused. The stress phase was continued for a total of 5 minutes. Heart rate was at the end of stress phase was 65 bpm and a blood pressure of 151/80 mmHg. The EKG at the peak infusion revealed normal sinus rhythm with no significant ST-T wave changes. Sestamibi was injected 20 seconds after the Lexiscan infusion. Blood pressure at the end of recovery phase was 165/94 mmHg with a heart rate of 65 bpm. Conclusion: 1. Normal EKG response to Lexiscan infusion 2. No Lexiscan induced chest pain or cardiac arrhythmia. 3. Normal blood pressure and heart rate response. 4. Sestamibi/sestamibi perfusion scan pending; see separate report. Electronically Signed On 10-27-2024 13:27:21 CDT by Alex Mead M.D. [email or web address]
[2024-10-11 07:25] VITALS: BMI 27.1
--- NOTE | 2024-10-11 07:25 | NMCV_ITS ---
NM vamshi perf SPECT r/s* [id number] Dony Padilla Age: 73 Gender: M : 1950 Exam Date: 10/11/2024 08:16 Ordering Phys: Alex Mead M.D ([email or web address]) Technologist: CALIXTO Diez Exam Location: [facility] Indications: cp STRESS TEST [facility] IMAGE PROTOCOL Rest/Stress 1 Lexiscan Day Radiopharmaceutical Dose (mCi) Administration Site Administered by Rest: Tc-99m 10.6 IV CALIXTO Diez Sestamibi Stress:Tc-99m 32.8 IV Melia Vela, FREIGHT CLAIM INVESTIGATOR Sestamibi Rest: 11-Oct-2024 60 Discovery 630 Stress: 11-Oct-2024 30 Discovery 630 0.4mg Lexiscan. Images obtained in supine and prone position. SPECT RESULTS Technical Quality: Good Raw Data Analysis: Normal Image Corrections: No attenuation or motion correction applied Summed Stress Score: 9 Summed Rest Score: 1 Summed Difference Score: 8 PERFUSION FINDINGS Large area of mostly reversible perfusion defect seen in inferolateral and lateral maddox. This is consistent with large area of ischemia seen in circumflex artery territory. FUNCTIONAL RESULTS (calculated via Gated SPECT) Stress Image LV EF (%): 53 Stress EDV (mL):119 TID: 1.2 Stress ESV (mL):56 FUNCTIONAL FINDINGS: There is normal left ventricular systolic function. TID ratio is elevated and is 1.2. IMPRESSIONS 1. Abnormal myocardial perfusion imaging with large area of ischemia seen in left circumflex artery territory. 2. LV systolic function is normal. 3. TID ratio is elevated Alex Mead MD (Electronically Signed) Final Date: 13 October 2024 12:24 S
[2024-10-11] MEDS: regadenoson 0.4 Mg/5 ml Syringe IVP (08:43)
[2024-10-11] MEDS: aminophylline 25 mg/mL SDV 20 mL IVP ×2 (08:55→08:57)
[2024-10-11 09:06] VITALS: BP 165/94; PULSE 66
== END 2024-10-11 07:07 | disposition home or self-care (01) ==
LOC: CDL 07:08
PROVIDERS: PCP Family Medicine; Visit Provider Internal Medicine
DX: R07.9 Chest pain, unspecified (principal); R93.1 Abnormal findings on diagnostic imaging of heart and coronary circulation
CPT/HCPCS: 36415; 78452; 93017; 96374; 96375; A9500; J0280; J2785

== ENCOUNTER 2024-10-23 12:48 | Outpatient (CLI) | payer MEDICARE, SELFPAY ==
[2024-10-23 13:45] LABS: Hematocrit 41.3 % (37-53); Hemoglobin 13.80 g/dL (11.27-16.99); Mean Corpuscular HGB Conc 33.4 g/dL (30-55); Mean Corpuscular Hemoglobin 29.3 pg (27-33); Mean Corpuscular Volume 87.7 fl (82-101); Nucleated Red Blood Cells % 0 %; Platelet Count 243 10^3/cmm (157-399); Red Blood Count 4.71 10^6/uL (3.85-5.65); White Blood Count 7.25 10^3/uL (3.29-11.43)
[2024-10-23 13:59] LABS: INR 0.92 (0.83-1.21)
[2024-10-23 14:04] LABS: Anion Gap 14.1 (5-19); Blood Urea Nitrogen 13 mg/dL (8-23); Calcium 9.3 mg/dL (8.5-10.5); Carbon Dioxide 26 mmol/L (22-29); Chloride 102 mmol/L (98-107); Glucose 148 mg/dL (65-115); Osmolality Calculated 289 mOsm/kg (285-295); Potassium 4.1 mmol/L (3.5-5.1); Sodium 138 mmol/L (136-145)
== END 2024-10-23 12:49 | disposition home or self-care (01) ==
PROVIDERS: PCP Family Medicine; Visit Provider Internal Medicine
DX: I10 Essential (primary) hypertension (principal); R58 Hemorrhage, not elsewhere classified
CPT/HCPCS: 36415; 80048; 85025; 85610

== ENCOUNTER 2024-10-25 09:15 | Observation (INO) | payer MEDICARE, SELFPAY ==
--- NOTE | 2024-10-25 06:00 | XACV_ITS ---
Exam Room: 2 Ht: 168 cm Wt: 76 kg BSA: 1.90 m2 Gender: Male : 1950 Any Known Allergies: Other Exam Priority: Routine Procedure(s): Procedure Description: Diagnostic procedure Procedure Description: Left Heart Catheterization Procedure Description: Left ventriculography Procedure Description: Coronary Angiography Diagnostic Cath Status: Elective Diagnostic Findings * INDICATION: Worsening angina/ abnormal stress test. * Left Anterior Descending has mild luminal irregularities. * Left Main: critical 95% ostial stenosis, : 3 flow. * Proximal Circumflex to Mid Circumflex: severe 70-80% stenosis, : 3 flow. * Posterior Descending Right: obstructive 70-80% stenosis, : 3 flow. * First Obtuse Marginal Branch Segment: significant 80% stenosis, : 3 flow. * Coronary angiography shows right dominance. Conclusions 1. Severe multivessel coronary artery disease. Will transfer patient to [place] for CABG. 2. Normal left ventricular systolic function. Ejection fraction of 65%. Recommendations * Transferring for CABG. Ventriculography Ejection Fraction: 65.0 % Pressures Phase:Rest AO : 146 / 82 ( 102 ) @ 8:48:00 AM 159 / 85 ( 112 ) @ 8:48:00 AM 115 / 82 ( 100 ) @ 8:55:00 AM 123 / 75 ( 97 ) @ 9:01:00 AM 159 / 66 ( 105 ) @ 9:10:00 AM 163 / 66 ( 105 ) @ 9:10:00 AM LV : 169 / -15 / 9 @ 8:47:00 AM 174 / -12 / 11 @ 8:48:00 AM 160 / -9 / 17 @ 9:09:00 AM 157 / -6 / 19 @ 9:10:00 AM 158 / -7 / 20 @ 9:10:00 AM Valves Phase:DefaultPhase AV : 0.0 @ 8:16:16 AM AV Mean Gradient: 0.0 @ 8:16:16 AM Clinical Evaluation EBL: 5mL-10mL Procedural Details Procedure Consent Obtained. Pre-Procedure Time Out. Identified patient by full name and date of as verbalized by the patient/guarantor. Does the consent match the physician's order: Yes. Accurate & Complete Informed Consent: Yes. Inpatient/Outpatient History & Physical on Chart: Yes. If H&P is completed, is and addenduem needed: No; If yes, is the addendum complete: N/A. Visualize and Verify Site with Patient/Guarantor: N/A. Relevant Radiology Images available: Yes. Pre-op teaching completed and patient verbalized understanding. The risks, benefits, and alternatives of sedation and/or procedure were discussed by physician. The patient agrees to continue. Procedure started. Current Diagnosis : Chest Pain. [facility] Clinical Fraility Score: 3: Managing Well. 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 Chest Pain Symptom Assessment: Typical Angina Symptoms. Correct patient, site and procedure confirmed by cath team. Current diagnosis: Chest Pain. PERRLA. Strong, equal hand instrument technician helper bilaterally. Lungs clear x 5 lobes. IV Site on Arrival: 20 gauge in the left anticubital. IV Fluids: 0.9% NaCl at KVO. 0 mL infused prior to laborer high density press. Pre Procedural Pulses: bilateral dorsalis pedis was 2+. Pre Procedural Pulses: bilateral posterior tibial was 2+. Pre Procedural Pulses: bilateral radial was 3+. Oxygen started at 2liters/min via nasal canula. right groin was prepped with chloroprep then draped in the usual sterile fashion. right radial was prepped with chloroprep then draped in the usual sterile fashion. Baseline sample Acquired. HR: 58 BPM. Physician arrived. Physician scrubbed in. Immediate Pre-Procedure Time Out. Correct Patient: Yes; Correct Procedure: Yes; Correct Site: Yes; Correct Patient Position: Yes; Correct Supplies: Yes; Dried Flammable Prep: Yes; Blood Products Available: N/A;. Lidocaine 1% infiltrated to the right radial. Arterial access obtained. A 5 romanian Arpan catheter in over wire. EDP Sample taken: LV 169/-16,9; HR: 67 BPM; SpO2: 99%. Pullback taken: LV 174/-13,11; AO 146/82(102); Mean: 32mmHg, Peak to Peak: 28mmHg, SEP: 20sec/min; HR: 67 BPM; SpO2: 99%. Multiple views taken of right coronary artery. Catheter redirected to the LCA. Catheter removed over the exchange wire. A 5 romanian JL3.5 catheter in over wire. AP Pads placed on patient. Catheter removed over the exchange wire. 6 romanian XB 3 SH guide catheter was inserted over the wire. Multiple views taken of left coronary artery. Catheter removed over the exchange wire. A 5 romanian Angled Pig catheter in over wire. EDP Sample taken: LV 160/-10,17; HR: 72 BPM; SpO2: 96%. LV gram performed in WALL @ 10 mL/second for a total of 30 mL. EDP Sample taken: LV 157/-7,19; HR: 71 BPM; SpO2: 97%. Pullback taken: LV 158/-8,20; AO 159/66(105); Mean: 0mmHg, Peak to Peak: 0mmHg, SEP: 8sec/min; HR: 72 BPM; SpO2: 97%. Catheter removed over the exchange wire. Vital chart was stopped. Post Procedure: Pulses reassessed and unchanged. PERRLA. Strong, equal hand instrument technician helper bilaterally. No VTE prophylaxis required. Medication's Wasted: Lidocaine 1% = 18 mL. Medication's Wasted: Nitro = 49.7 mcg. Medication's Wasted: Other = Fentanyl 50mcg Versed 1 mg. Total IV fluids: 30 mL. Post-op diagnosis: CAD. Complications: None. Estimated blood loss: 5mL-10mL. Responsiveness - Normal response to verbal stimuli; alert and oriented, PERRLA. Airway - Unaffected, no intervention required; spontaneous ventilation. Circulation: W/N/L, pulses unchanged. Nausea/Vomiting: No. Procedure completed. Patient transferred by stretcher to CPRU. Access Site Site: Right Radial artery Sheath Size: 6 Fr Hemostasis Success: Unsuccessful Procedure Medications Start: 7:37 AM Stop: 7:37 AM Medication: Versed Amount: 1 mg Route: I.V. Start: 7:37 AM Stop: 7:37 AM Medication: Fentanyl Amount: 50 mcg Route: I.V. Start: 7:41 AM Stop: 7:41 AM Medication: Hydralazine Amount: 10 mg Route: I.V. Start: 7:45 AM Stop: 7:45 AM Medication: Nitrogylcerin Amount: 300 mcg Route: I.A. Start: 7:46 AM Stop: 7:46 AM Medication: Heparin Amount: 5000 units Route: I.V. I, the attending physician, have reviewed and verified all procedure medications. Yes, all medications given per verbal order History/Risk Factors Hypertension: Yes Dyslipidemia: Yes Peripheral Arterial Disease (PAD): No Myocardial Infarction (AK): No Obesity: No Renal Disease: No Tobacco Use: Former Prior Interventions PCI: No CABG: No Valve Surgery: No Report Signatures Finalized by Alex Mead MD on 11/05/2024 11:09 AM
[2024-10-25 06:10] VITALS: BP 217/94; PULSE 64; RESP 16; TEMP 36.6; O2SAT 96; BMI 27.1
--- NOTE | 2024-10-25 07:35 | P.HP_ITS ---
Same Day Surgery H&P Indication for Procedure/HPI DATE OF PROCEDURE: October 25, 2024 CHIEF COMPLAINT/INDICATIONFOR SURGICAL PROCEDURE: Chest pain/ abnormal stress test PREOP DIAGNOSIS: Chest pain/ abnormal stress test PLANNED PROCEDURE: Operation Date: 10/25/24 07:00 Proposed Procedures p Cardiac Catheterization - [facility] with Coronaries(Left) - Alex Mead M.D Possible percutaneous coronary intervention 74-year-old man with past medical history of hypertension, hyperlipidemia has been having worsening chest pain symptoms. Stress test was performed that is showing large area of ischemia in inferolateral lateral maddox. Plan for coronary angiogram with possible PCI. Medications/Allergies* Allergies/Adverse Reactions Allergy/AdvReac Type Severity Reaction Status Date / Time trazodone Allergy Mild ADR-Confusi Verified 10/25/24 07:18 on Current Medications: Generic Name Dose Route Start Last Admin Trade Name Freq PRN Reason Stop Dose Admin Sodium Chloride 1,000 mls @ 50 mls/hr 10/25/24 06:00 10/25/24 06:40 Sodium Chloride 0.9% IV 10/26/24 01:59 Not Given .Q20H ONE Pertinent History/Comorbid Conditions* Medical History (Updated 09/05/24 @ 10:15 by Bry Kwon MD) COVID-19 vaccine regimen to maintain immunity completed Moderna Booster on 04/25/2021 Decreased glomerular filtration rate (GFR) Cerebral vascular disease Constipation Dyslipidemia Acute CVA (cerebrovascular accident) HTN (hypertension) 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, dysarthria Family History (Updated 03/10/20 @ 11:08 by Paula Martin LPN) Cancer Social History Smoking and tobacco/nicotine status: former use of tobacco/nicotine Alcohol intake: current Alcohol intake frequency: holidays/special occasions only Alcohol type: wine Substance/Drug Use: never Household members: spouse Marital status: Current occupational status: employed Current occupation: [employer] Pertinent Exam Findings alert, oriented x 3, clear to auscultation bilaterally and regular rate & rhythm Conscious Sedation Assessment PATIENT ASSESSED PRIOR TO SEDATION, WITH NO CHANGE NOTED: Yes AIRWAY EVAL/ANESTHESIA PLAN: normal airway, ASA III, Local Anesthesia, Risks, benefits & alternatives of sedation and/or procedure discussed and Patient agrees to continue as planned ADDITIONAL INFORMATION: Moderate sedation Recommendations Risks and benefits of procedure reviewed Surgery/Procedure today (Left heart cath with possible percutaneous coronary intervention) Coding Level of Care Code Acute Code for [facility] Fwd
--- NOTE | 2024-10-25 08:25 | SUR.PHASEI ---
RECOVERY NOTE Received patient post cath. TR band in place- site hemostatic. Dr Mead in to discuss findings with the patient/family and to discuss treatment options. Patient had a vagal response during that time. HR dropped to 38 bpm with patient c/o dizziness and arm numbness reported. His LOC was intact but impaired during this time partly in effect to sedation received in lab as well as c/o dizziness. BP Soft yet stable. currently 113/78. Recheck 96/72. Verbal orders for 500 ml ns bouls as well as 1 mg Atropine now received and given as ordered. Patient HR returned to baseline and symptoms improved. 12 LEAD obtained at MD request. After Stabilization patient taken to [facility] 101. Report to Elsy VELASQUEZ.
--- NOTE | 2024-10-25 08:37 | ECG_ITS ---
[facility] Test Date: 2024-10-25 Pat Name: Dony Padilla Department: Room: Gender: Male Hall Tender: : 1950 Requested By: Alex Mead Order Number: [id number] Xiao MD: Stefano Page M.D. Measurements Intervals [place] Rate: 71 P: 237 DC: 123 QRS: 57 QRSD: 94 T: 59 QT: 388 QTc: 423 Interpretive Statements ECTOPIC ATRIAL RHYTHM NONSPECIFIC T-WAVE ABNORMALITY ABNORMAL RHYTHM ECG Compared to ECG 09/25/2024 12:32:16 Ectopic atrial rhythm now present Sinus rhythm no longer present First degree AV block no longer present T-wave abnormality still present Electronically Signed On 10-26-2024 15:23:31 CDT by Stefano Page M.D. [id number]
[2024-10-25 08:48] VITALS: BP 100/68; PULSE 73; RESP 16; O2SAT 94
--- NOTE | 2024-10-25 08:55 | PC.NURSE ---
Patient received from CPRU s/p LHC with right radial access and TR band in place. No s/s of bleeding or hematoma formation observed. Family at bedside.
--- NOTE | 2024-10-25 08:56 | P.PCN_ITS ---
Procedure Note: Date of procedure: 10/25/24 Pre-procedure diagnosis: Worsening angina/ abnormal stress test Post-procedure diagnosis: other (Critical ostial left main stenosis. Severe proximal to mid circumflex artery stenosis. Severe OM1 stenosis. Moderate to severe PDA stenosis.) Procedure: Left main artery has critical 95 to 99% stenosis at ostium. LAD has mild to moderate luminal irregularities. Left circumflex artery has significant proximal to mid circumflex artery stenosis. Severe OM1 stenosis. Moderate to severe PDA stenosis. Postprocedure patient had a vagal response with the bradycardia, stomach discomfort. Symptoms resolved after 2 doses of atropine. EKG not showing ischemic changes. Patient will need to be transferred for heart team discussion as CABG is preferable however patient does have significant carotid artery disease, stroke history and is a [employer]. We will admit patient. Trend troponins. And will transfer to facility with CT surgery team availability. Performing Provider: Alex Mead Estimated blood loss (mL): 10 Complications: None Condition: stable Disposition: floor Coding Level of Care Code Acute Code for Chg Oral
[2024-10-25 08:58] VITALS: BP 109/61; PULSE 73; RESP 12; O2SAT 95
[2024-10-25 09:00] VITALS: BP 109/61; PULSE 73; RESP 12; O2SAT 96
--- NOTE | 2024-10-25 09:03 | ECG_ITS ---
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 Measurements Intervals [place] Rate: 65 P: 66 LA: 220 QRS: 66 QRSD: 102 T: 64 QT: 388 QTc: 404 Interpretive Statements SINUS RHYTHM WITH FIRST DEGREE AV BLOCK NONSPECIFIC T-WAVE ABNORMALITY Compared to ECG 10/25/2024 08:37:18 First degree AV block now present Ectopic atrial rhythm no longer present T-wave abnormality still present Electronically Signed On 10-26-2024 15:23:25 CDT by Stefano Page M.D. [email or web address]
--- NOTE | 2024-10-25 09:06 | P.HP_ITS ---
<Statement entered by Alex Mead M.D - 10/28/24 13:43> Patient was evaluated and cared for in conjunction with an advanced practice practitioner.? I personally examined the patient and reviewed the chart and all pertinent data including imaging, telemetry, and laboratory results.? I discussed the patient in detail with the advanced practice practitioner.? Please see? their note for complete H&P, testing results and agreed upon plan of care for the patient. ? Patient is to be transferred to [place] for CABG. Has multivessel severe CAD. Heart rate has improved after receiving atropine. Had a vagal reaction. GENERAL: Patient is alert, awake and oriented x3. HEART: Regular S1 and S2 LUNGS: Clear to auscultate bilaterally. CENTRAL NERVOUS SYSTEM: Grossly nonfocal. EXTREMITIES: Lower extremities with out edema bilaterally. Providers/Chief Complaint Admitting Physician: Dr Honey Mead, cardiology Primary Care Provider: Bry Kwon MD Chief Complaint: R94.39 History of Present Illness Dony Padilla is a 74 year old male with past medical history of hypertension, hyperlipidemia has been having worsening chest pain symptoms. Stress test was performed that is showing large area of ischemia in inferolateral lateral maddox. Plan for coronary angiogram with possible PCI. Review of Systems Const: Denies: fever(s), chills, change in weight, fatigue or diaphoresis Eyes: Denies: change in vision ENMT: Denies: epistaxis Card: Reports: chest pain; Denies: palpitations, irregular heart rhythm, edema, syncope, pre-syncope, dys pnea on exertion, orthopnea or leg pain with exertion Resp: Denies: dyspnea, productive cough or wheezing GI: Denies: nausea, vomiting, hematemesis, hematochezia or melena : Denies: hematuria Musc: Denies: extremity swelling Emilio/Lymph: Denies: easy bruising or easy bleeding Medications/Allergies Home Medications ?Medication ?Instructions ?Recorded ?Confirmed ?Last Taken ?Type aspirin 325 mg tablet 325 mg PO DAILY #90 tabs 07/0910/25/24 10/24/24 08:00 Rx zolpidem 10 mg tablet (Ambien) 10 mg PO DAILY PRN inso mnia #30 07/24/24 10/25/24 10/24/24 20:00 Rx tabs nitroglycerin 0.4 mg sublingual See Rx Instructions .R oute 09/24/24 10/24/24 Unknown Rx tablet .COMPLEX #30 tabs atorvastatin 40 mg tablet (Lipitor) 40 mg PO DAILY #90 tabs 09/25/24 10/25/24 10/23/24 08:00 Rx Allergies Allergy/AdvReac Type Severity Reaction Status Date / Time trazodone Allergy Mild ADR-Confusi Verified 10/25/24 07:18 on PFSH Acute PFSH: Medical History COVID-19 vaccine regimen to maintain immunity completed Moderna Booster on 04/25/2021 Decreased glomerular filtration rate (GFR) Cerebral vascular disease Constipation Dyslipidemia Acute CVA (cerebrovascular accident) HTN (hypertension) 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, dysarthria Family History Other Cancer Social History Smoking and tobacco/nicotine status: former use of tobacco/nicotine Alcohol intake: current Alcohol intake frequency: holidays/special occasions only Alcohol type: wine Substance/Drug Use: never Household members: spouse Marital status: Current occupational status: employed Current occupation: [employer] Vitals/I&O/Wt Last Vital Signs Temp 97.8 F 10/25/24 06:10 Pulse 73 10/25/24 08:58 Resp 12 10/25/24 08:58 BP 109/61 10/25/24 08:58 Pulse Ox 95 10/25/24 08:58 O2 Del Method Room Air 10/25/24 08:48 Weight last 48 hrs Weight 168 lb Physical Exam Const: COMMON NORMALS: no acute distress and patient oriented x3 GENERAL APPEARANCE: cooperative and comfortable ORIENTATION/CONSCIOUSNESS: Yes awake, Yes oriented to person, Yes oriented to place and Yes oriented to time Chest: COMMONS NORMALS: normal inspection of the chest and normal palpation of entire chest wall CHEST: Yes Symmetrical chest wall rise Resp: COMMON NORMALS: normal respiratory effort, No retractions, No use of accessory muscles and clear to auscultation bilaterally EFFORT & INSPECTION: Yes symmetric chest movement AUSCULTATION: clear to auscultation bilaterally Cardio: COMMON NORMALS: regular rate, regular rhythm, S1 normal heart sound present, S2 normal heart sound present, No gallops present (Cardio), No clicks present (Cardio), No murmurs present (Cardio) and No rub (Cardio) RATE: regular rate RHYTHM: regular rhythm HEART SOUNDS: S1 normal heart sound present and S2 normal heart sound present PERIPHERAL PULSES: radial pulses present Extremity: COMMON NORMALS: no pedal edema Neuro: COMMON NORMALS: patient oriented x3 and moves all extremities SENSORIUM/ORIENTATION: Yes oriented to person, Yes oriented to place and Yes oriented to time A&P Assessment and plan 1. Stenosis of left main coronary artery: 2. Chest pain: 3. Dyslipidemia: 4. HTN (hypertension): 5. Coronary artery disease: Plan: He underwent coronary angiogram this morning finding critical ostial left main stenosis, severe circumflex stenosis severe, OM 1 stenosis, moderate to severe PDA stenosis. After the procedure he had a vagal response and received 2 doses of atropine. He will be admitted to cardiac stepdown, monitored with EKG and troponin series post procedure. Patient is a Jainism will not receive blood products. He has been recommended for CABG, discussed with patient and he is agreeable to transfer to [facility] under Dr Galvin for CABG evaluation, has been accepted there. PDMP PDMP Reviewed: Not Reviewed Attestations Medical Necessity Statement*: Plan for transfer to [facility] Coding Level of Care Code Acute Code for Chg Fwd Diagnoses Stenosis of left main coronary artery I25.10 Chest pain R07.9 Dyslipidemia E78.5 HTN (hypertension) I10 Coronary artery disease I25.10
--- NOTE | 2024-10-25 09:20 | P.TS_ITS ---
<Statement entered by Alex Mead M.D - 11/06/24 16:11> Patient was cared for in conjunction with an advanced practice practitioner.? I reviewed the chart and all pertinent data including imaging, telemetry, and laboratory results.? I discussed the patient in detail with the advanced practice practitioner.? Please see?their note for transfer summary, testing results and agreed upon plan of care for the patient. Transfer Summary Providers Date of Admission: 10/25/24 09:15 Date of Discharge/Transfer: 10/25/24 Attending Provider at Admission: Alex Mead M.D Attending Provider at Transfer: Alex Mead M.D Primary Care Provider: Bry Kwon MD Transfer Plans: Anticipated date of transfer: 10/25/24 . Receiving Facility: [facility] . Receiving Provider: Dr Galvin . Diagnoses at Discharge Discharge Diagnosis 1. Stenosis of left main coronary artery: 2. Stable angina pectoris: 3. Dyslipidemia: 4. Essential hypertension: 5. Coronary artery disease: Other Information Additional DC diagnoses/information: Incorrect document was entered on 10/25/2024, please consider this the appropriate documentation for transfer rather than history and physical which was entered at that time. Reason for Visit Reason for Visit R94.39 Brief History: Dony Padilla is a 74 year old male with past medical history of hypertension, hyperlipidemia has been having worsening chest pain symptoms. Stress test was performed that is showing large area of ischemia in inferolateral lateral maddox. Plan for coronary angiogram with possible PCI. Hospital Course Hospital Course He underwent coronary angiogram this morning finding critical ostial left main stenosis, severe circumflex stenosis severe, OM 1 stenosis, moderate to severe PDA stenosis. After the procedure he had a vagal response and received 2 doses of atropine. He will be admitted to cardiac stepdown, monitored with EKG and troponin series post procedure. 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 He has been recommended for CABG, discussed with patient and he is agreeable to transfer to [facility] under Dr Galvin for CABG evaluation, has been accepted there. Physical Exam Const: COMMON NORMALS: no acute distress and patient oriented x3 GENERAL APPEARANCE: cooperative and comfortable ORIENTATION/CONSCIOUSNESS: Yes awake, Yes oriented to person, Yes oriented to place and Yes oriented to time Chest: COMMONS NORMALS: normal inspection of the chest and normal palpation of entire chest wall CHEST: Yes Symmetrical chest wall rise Resp: COMMON NORMALS: normal respiratory effort, No retractions, No use of accessory muscles and clear to auscultation bilaterally EFFORT & INSPECTION: Yes symmetric chest movement AUSCULTATION: clear to auscultation bilaterally Cardio: COMMON NORMALS: regular rate, regular rhythm, S1 normal heart sound present, S2 normal heart sound present, No gallops present (Cardio), No clicks present (Cardio), No murmurs present (Cardio) and No rub (Cardio) RATE: regular rate RHYTHM: regular rhythm HEART SOUNDS: S1 normal heart sound present and S2 normal heart sound present PERIPHERAL PULSES: radial pulses present Extremity: COMMON NORMALS: no pedal edema Neuro: COMMON NORMALS: patient oriented x3 and moves all extremities SENSORIUM/ORIENTATION: Yes oriented to person, Yes oriented to place and Yes oriented to time TS Data Studies Completed and Pending Pending at discharge Category Date Time 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 Routine Exams 10/25/24 06:00 Taken Laboratory Last Values WBC 7.40 10^3/uL (3.29-11.43) 10/25/24 09:37 RBC 4.45 10^6/uL (3.85-5.65) 10/25/24 09:37 Hgb 13.00 g/dL (11.27-16.99) 10/25/24 09:37 Hct 38.8 % (37-53) 10/25/24 09:37 MCV 87.2 fl (82-101) 10/25/24 09:37 MCH 29.2 pg (27-33) 10/25/24 09:37 MCHC 33.5 g/dL (30-55) 10/25/24 09:37 RDW 13.0 % (12.1-15.1) 10/25/24 09:37 Plt Count 252 10^3/cmm (157-399) 10/25/24 09:37 MPV 8.6 fL (7.4-10.4) 10/25/24 09:37 Neut % (Auto) 62.4 % 10/25/24 09:37 Lymph % (Auto) 28.8 % 10/25/24 09:37 Marshall % (Auto) 5.0 % 10/25/24 09:37 Eos % (Auto) 2.4 % 10/25/24 09:37 Baso % (Auto) 1.1 % 10/25/24 09:37 Neut # (Auto) 4.62 10^3/uL (1.8-7.7) 10/25/24 09:37 Lymph # (Auto) 2.1 10^3/uL (0.8-4.8) 10/25/24 09:37 Marshall # (Auto) 0.4 10^3/uL (0.2-0.9) 10/25/24 09:37 Eos # (Auto) 0.2 10^3/uL (0.0-0.8) 10/25/24 09:37 Baso # (Auto) 0.1 10^3/uL (0.0-0.1) 10/25/24 09:37 Nucleated RBC % (auto) 0 % 10/25/24 09:37 Nucleated RBCs # 0.0 /100WBC 10/25/24 09:37 Sodium 139 mmol/L (136-145) 10/25/24 09:37 Potassium 4.1 mmol/L (3.5-5.1) 10/25/24 09:37 Chloride 105 mmol/L (98-107) 10/25/24 09:37 Carbon Dioxide 24 mmol/L (22-29) 10/25/24 09:37 Anion Gap 14.1 (5-19) 10/25/24 09:37 BUN 13 mg/dL (8-23) 10/25/24 09:37 Creatinine 1.0 mg/dL (0.7-1.2) 10/25/24 09:37 GFR Calculation Not Reportable 10/25/24 09:37 Glucose 122 mg/dL (65-115) H 10/25/24 09:37 Calculated Osmolality 289 mOsm/kg (285-295) 10/25/24 09:37 Calcium 8.7 mg/dL (8.5-10.5) 10/25/24 09:37 Troponin T Baseline 8 ng/L (0-15) 10/25/24 09:37 Recent Clincial Data Last Vital Signs Temp 97.8 F 10/25/24 06:10 Pulse 68 10/25/24 10:34 Resp 15 10/25/24 09:30 BP 117/65 10/25/24 09:30 Pulse Ox 95 10/25/24 09:30 O2 Del Method Room Air 10/25/24 09:49 Vitals Last Vital Signs Temp 97.8 F 10/25/24 06:10 Pulse 68 10/25/24 10:34 Resp 15 10/25/24 09:30 BP 117/65 10/25/24 09:30 Pulse Ox 95 10/25/24 09:30 O2 Del Method Room Air 10/25/24 09:49 TS Medications Medications Discontinued Medications Acetaminophen (Acetaminophen 325 Mg Tablet) 650 mg PO Q6H PRN PRN Reason: MILD PAIN Al Hydrox/Mg Hydrox/Simethicone (Dddd-Nwh-Nrpldmefe-Gabriela 30 Ml Udc) 30 ml PO Q15M PRN PRN Reason: INDIGESTION Alprazolam (Alprazolam 0.5 Mg Tablet) 0.25 mg PO TID PRN PRN Reason: ANXIETY Aspirin (Aspirin 325 Mg Tablet) 325 mg PO ONCE ONE Stop: 10/25/24 06:01 Last Admin: 10/25/24 06:40 Dose: 325 mg Atropine Sulfate (Atropine 1 Mg/Ml Sdv 1 Ml) 0.5 mg IVP PRN PRN PRN Reason: Symptomatic bradycardia Diphenhydramine HCl (Diphenhydramine 50 Mg Capsule) 50 mg PO ONCE ONE Stop: 10/25/24 06:01 Last Admin: 10/25/24 06:40 Dose: 50 mg Fentanyl (Fentanyl 50 Mcg/Ml Inj 2ml) Confirm Administered Dose 100 mcg .ROUTE .STK-MED ONE Stop: 10/25/24 06:33 Heparin Sodium (Porcine) (Heparin 5,000 Unit/Ml Inj 1 Ml) Confirm Administered Dose 5,000 unit .ROUTE .STK-MED ONE Stop: 10/25/24 06:28 Heparin Sodium (Porcine) (Heparin 5,000 Unit/Ml Inj 1 Ml) Confirm Administered Dose 5,000 unit .ROUTE .STK-MED ONE Stop: 10/25/24 06:33 Hydralazine HCl (Hydralazine 20 Mg/Ml Inj 1 Ml) Confirm Administered Dose 20 mg .ROUTE .STK-MED ONE Stop: 10/25/24 07:42 Sodium Chloride (Sodium Chloride 0.9%) 1,000 mls @ 50 mls/hr IV .Q20H ONE Stop: 10/26/24 01:59 Last Admin: 10/25/24 06:40 Dose: Not Given Lidocaine HCl (Xylocaine) Confirm Administered Dose 20 mls @ as directed .ROUTE .STK-MED ONE Stop: 10/25/24 06:33 Sodium Chloride (Sodium Chloride 0.9%) Confirm Administered Dose 1,000 mls @ as directed .ROUTE .STK-MED ONE Stop: 10/25/24 06:33 Sodium Chloride (Sodium Chloride 0.9%) 1,000 mls @ 100 mls/hr IV .Q10H [place] Magnesium Hydroxide (Magnesium Hydroxide 30 Ml Udc) 30 ml PO DAILY PRN PRN Reason: CONSTIPATION Midazolam HCl (Midazolam 1 Mg/Ml Inj 2 Ml) Confirm Administered Dose 2 mg .ROUTE .STK-MED ONE Stop: 10/25/24 06:33 Naloxone HCl (Naloxone 0.4 Mg/Ml Sdv) 0.1 mg IVP Q2M PRN PRN Reason: RESPIRATORY RATE < 8/MIN Nitroglycerin (Nitroglycerin 5 Mg/Ml Sdv 10 Ml) Confirm Administered Dose 50 mg .ROUTE .STK-MED ONE Stop: 10/25/24 06:33 Nitroglycerin (Nitroglycerin [place] 4.9 Gm Btl) Confirm Administered Dose 60 spray .ROUTE .STK-MED ONE Stop: 10/25/24 08:21 Nitroglycerin (Nitroglycerin 0.4 Mg Sublingual Tablet) 0.4 mg SUBLINGUAL Q5M PRN PRN Reason: CHEST PAIN Temazepam (Temazepam 15 Mg Capsule) 15 mg PO BEDTIME PRN PRN Reason: INSOMNIA Allergies trazodone Allergy (Mild, Verified 10/25/24 07:18) ADR-Confusion Home Medications aspirin 325 mg tablet 325 mg PO DAILY #90 tabs 12/20/23 [Rx Confirmed 10/25/24] zolpidem 10 mg tablet (Ambien) 10 mg PO DAILY PRN insomnia #30 tabs 07/24/24 [Rx Confirmed 10/25/24] nitroglycerin 0.4 mg sublingual tablet See Rx Instructions .Route .COMPLEX #30 tabs 09/24/24 [Rx Confirmed 10/24/24] atorvastatin 40 mg tablet (Lipitor) 40 mg PO DAILY #90 tabs 09/25/24 [Rx Confirmed 10/25/24] Discharge Plan Discharge Patient Disposition: Xfer Short-Term Hosp Prescriptions: No Action atorvastatin [Lipitor] 40 mg tablet 40 mg PO DAILY Qty: 90 3RF aspirin 325 mg tablet 325 mg PO DAILY Qty: 90 0RF zolpidem [Ambien] 10 mg tablet 10 mg PO DAILY PRN (Reason: insomnia) Qty: 30 5RF nitroglycerin 0.4 mg tablet, sublingual See Rx Instructions .ROUTE .COMPLEX Qty: 30 0RF Dose Instruction: DISSOLVE ONE TABLET UNDER THE TONGUE EVERY 5 MINUTES NEEDED FOR CHEST PAIN. DO NOT EXCEED A TOTAL OF 3 DOSES IN 15 MINUTES Rx Instructions: DISSOLVE ONE TABLET UNDER THE TONGUE EVERY 5 MINUTES NEEDED FOR CHEST PAIN. DO NOT EXCEED A TOTAL OF 3 DOSES IN 15 MINUTES Discharge Order = DC NOW: Discharge Order (Routine); Ordered 11/05/24 Ordered By: Radha Villalta Print Language: [place] Citizen Discharge Date/Time: 10/25/24 11:09 Transfer Attestations Time Spent in Transfer Care: less than 30 min Quality Metrics Clinical Quality Measures [ No reported AMI, CVA or VTE this stay] Coding Level of Care Code Acute Code for g Fwd Diagnoses Stenosis of left main coronary artery I25.10 Stable angina pectoris I20.89 Chest pain type: chest pain due to myocardial ischemia Ischemic chest pain type: stable angina pectoris Dyslipidemia E78.5 Essential hypertension I10 Hypertension type: essential hypertension Coronary artery disease I25.10
[2024-10-25 09:30] VITALS: BP 117/65; PULSE 72; RESP 15; O2SAT 95
[2024-10-25 09:45] LABS: Hematocrit 38.8 % (37-53); Hemoglobin 13.00 g/dL (11.27-16.99); Mean Corpuscular HGB Conc 33.5 g/dL (30-55); Mean Corpuscular Hemoglobin 29.2 pg (27-33); Mean Corpuscular Volume 87.2 fl (82-101); Nucleated Red Blood Cells % 0 %; Platelet Count 252 10^3/cmm (157-399); Red Blood Count 4.45 10^6/uL (3.85-5.65); White Blood Count 7.40 10^3/uL (3.29-11.43)
[2024-10-25 10:03] LABS: Troponin(5th) Baseline 8 ng/L (0-15)
[2024-10-25 10:06] LABS: Anion Gap 14.1 (5-19); Blood Urea Nitrogen 13 mg/dL (8-23); Calcium 8.7 mg/dL (8.5-10.5); Carbon Dioxide 24 mmol/L (22-29); Chloride 105 mmol/L (98-107); Creatinine Clr Calc Pharmacy 64.9415; Glucose 122 mg/dL (65-115); Osmolality Calculated 289 mOsm/kg (285-295); Potassium 4.1 mmol/L (3.5-5.1); Sodium 139 mmol/L (136-145)
--- NOTE | 2024-10-25 10:32 | PC.NURSE ---
Patient to be transferred to [facility]. Report called to RON Ferro. Verification of bed/rm number obtained from [facility] and from receiving unit. Instructed patient of plan for transfer. Family and patient verbalized complete understanding. patient stable for transport. [employer] to provide transportation.
[2024-10-25 10:34] VITALS: PULSE 68
--- NOTE | 2024-10-25 10:42 | PC.NURSE ---
Initiated TR band removal at 0930 removing 1-3ml of air every 10-15min. Band removed at this time. No s/s of bleeding or hematoma formation observed. Covered site with 2x2 and coban. Instructed patient on site care with restrictions. Patient verbalized complete understanding. Patient ready for transport.
--- NOTE | 2024-10-25 11:07 | PC.NURSE ---
Patient taken by Maicol to [facility]. spouse at bedside.
== END 2024-10-25 11:09 | disposition short-term general hospital (02) ==
LOC: CSU 09:36
PROVIDERS: Nurse Practitioner Family; Admitting Provider Internal Medicine; PCP Family Medicine; Visit Provider Internal Medicine
DX: I25.110 Atherosclerotic heart disease of native coronary artery with unstable angina pectoris (principal); I10 Essential (primary) hypertension; E78.5 Hyperlipidemia, unspecified; Z87.891 Personal history of nicotine dependence; Z79.82 Long term (current) use of aspirin; Z86.73 Personal history of transient ischemic attack (TIA), and cerebral infarction without residual deficits
CPT/HCPCS: 36415; 80048; 84484; 85025; 93005; 93458; 96374; 99152; 99153; C1769; C1887; C1894; G0378; J0360; J1644; J2250; J3010; J3490; J7030; J9999; Q0163; Q9967

== ENCOUNTER → 2024-11-27 14:48 | Outpatient (BNVA) | payer MEDICARE, SELFPAY | PROVIDERS: PCP Family Medicine; Visit Provider Nurse Practitioner Family | DX: I25.10 Atherosclerotic heart disease of native coronary artery without angina pectoris (principal); I65.23 Occlusion and stenosis of bilateral carotid arteries; I77.1 Stricture of artery; I10 Essential (primary) hypertension; E78.00 Pure hypercholesterolemia, unspecified; R07.9 Chest pain, unspecified; Z79.82 Long term (current) use of aspirin; Z95.1 Presence of aortocoronary bypass graft; Z86.73 Personal history of transient ischemic attack (TIA), and cerebral infarction without residual deficits; Z87.891 Personal history of nicotine dependence; I25.2 Old myocardial infarction | CPT/HCPCS: 99214 ==

== ENCOUNTER 2024-12-06 13:19 | Outpatient (CLI) | payer MEDICARE, SELFPAY ==
--- NOTE | 2024-12-06 13:45 | CTR_ITS ---
PROCEDURE INFORMATION: Exam: CTA Head With Contrast, Arteriography Exam date and time: 12/06/2024 1:52 PM Age: 74 years old Clinical indication: Condition or disease; Other: Left subclavian stenosis, left carotid complete stenosis; Prior surgery; Surgery date: 6+ months; Surgery type: RT carotid, heart; Additional info: Subclavian stenosis, please evaluate patient for subclavian artery stenosis TECHNIQUE: Imaging protocol: Computed tomographic angiography of the head with contrast. Exam focused on the arteries. 3D rendering (Not supervised by radiologist): MIP and/or 3D reconstructed images were created by the technologist. Radiation optimization: All CT scans at this facility use at least one of these dose optimization techniques: automated exposure control; mA and/or kV adjustment per patient size (includes targeted exams where dose is matched to clinical indication); or iterative reconstruction. Contrast material: OMNI 350; Contrast volume: 100 ml; Contrast route: INTRAVENOUS (IV); COMPARISON: CT angio headneck* [id number] 12/04/2023 6:55 PM RADIATION DOSE METRICS: Total DLP (mGy-cm): 1165.67 FINDINGS: ANTERIOR CIRCULATION: Right internal carotid artery: Intracranial segment is patent with no significant stenosis. No aneurysm. Right middle cerebral artery: No occlusion or significant stenosis. No aneurysm. Right anterior cerebral artery: No occlusion or significant stenosis. No aneurysm. Left internal carotid artery: The left internal carotid artery is occluded with reconstitution beyond the ophthalmic segment presumably via collateral flow across the anterior communicating artery. Left middle cerebral artery: No occlusion or significant stenosis. No aneurysm. Left anterior cerebral artery: No occlusion or significant stenosis. No aneurysm. POSTERIOR CIRCULATION: Right vertebral artery: No occlusion or significant stenosis. No aneurysm. Left vertebral artery: No occlusion or significant stenosis. No aneurysm. Basilar artery: No occlusion or significant stenosis. No aneurysm. Right posterior cerebral artery: No occlusion or significant stenosis. No aneurysm. Left posterior cerebral artery: There is a origin of the left posterior cerebral artery. Brain: There is no mass effect, midline shift, acute hemorrhage, extra-axial fluid collection or acute lobar infarct. Encephalomalacia is noted along the inferior left cerebellar hemisphere. Patchy white matter hypodensity likely represents chronic microvascular ischemic change and chronic lacunar infarcts. Cerebral ventricles: No ventriculomegaly. Paranasal sinuses: Fluid is noted layering within the dominant left sphenoid sinus. Polypoid disease noted within the relatively diminutive left maxillary antrum. Bones/joints: Unremarkable. No acute fracture. Soft tissues: Unremarkable. PROCEDURE INFORMATION: Exam: CTA Neck With Contrast Exam date and time: 12/06/2024 1:52 PM Age: 74 years old Clinical indication: Condition or disease; Other: Left subclavian stenosis, left carotid complete stenosis; Prior surgery; Surgery date: 6+ months; Surgery type: RT carotid, heart; Additional info: Subclavian stenosis, please evaluate patient for subclavian artery stenosis TECHNIQUE: Imaging protocol: Computed tomographic angiography of the neck with contrast. Exam focused on the cervical segments of the vasculature. 3D rendering (Not supervised by radiologist): MIP and/or 3D reconstructed images were created by the technologist. Radiation optimization: All CT scans at this facility use at least one of these dose optimization techniques: automated exposure control; mA and/or kV adjustment per patient size (includes targeted exams where dose is matched to clinical indication); or iterative reconstruction. Contrast material: OMNI 350; Contrast volume: 100 ml; Contrast route: INTRAVENOUS (IV); COMPARISON: CT angio headneck* [id number] 06/23/2020 10:22 AM RADIATION DOSE METRICS: Total DLP (mGy-cm): 1165.67 FINDINGS: Right common carotid artery: No stenosis. No dissection or occlusion. Right internal carotid artery: No stenosis of the extracranial segment. No dissection or occlusion. Right external carotid artery: No occlusion or stenosis of the origin. Left common carotid artery: There is atheromatous plaque noted near the origin of the left common carotid artery causing mild narrowing. Left internal carotid artery: There is heavy calcific and soft atheromatous plaque at the left carotid bulb. The left internal carotid artery is occluded at its origin. Left external carotid artery: No occlusion or stenosis of the origin. Right vertebral artery: No stenosis. No dissection or occlusion. Left vertebral artery: There is poor to absent enhancement of the left cervical vertebral artery. Soft tissues: Normal. No significant soft tissue swelling. Bones/joints: Cervical spondylosis is noted. Lungs: Apical scarring and blebs are noted in the lungs. CT/CT angio headneck* [id number] IMPRESSION: Unchanged occlusion of the left internal carotid artery. IMPRESSION: Unchanged occlusion of the left internal carotid artery at its origin. Unchanged poor enhancement of the left cervical vertebral artery. REFERENCES: NASCET CRITERIA. The degree of stenosis in the cervical segment of the internal carotid artery is based on NASCET criteria. Normal is no stenosis. Mild is less than 50% stenosis. Moderate is 50-69% stenosis. Severe is 70% to 99% stenosis. Total occlusion is no detectable patent lumen.
[2024-12-06] MEDS: iohexol 350 mg/mL 500 mL Btl (per mL) IV (14:08)
== END 2024-12-06 13:20 | disposition home or self-care (01) ==
LOC: RAD 13:20
PROVIDERS: PCP Family Medicine; Visit Provider Nurse Practitioner Family
DX: I77.1 Stricture of artery (principal)
CPT/HCPCS: 70496; 70498

== ENCOUNTER 2025-01-05 10:52 | Emergency (ER) | payer MEDICARE, SELFPAY ==
--- NOTE | 2025-01-05 10:50 | ECG_ITS ---
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 Measurements Intervals Ola Rate: 88 P: 20 DC: 180 QRS: 48 QRSD: 93 T: 136 QT: 317 QTc: 384 Interpretive Statements SINUS RHYTHM WITH FREQUENT SUPRAVENTRICULAR PREMATURE COMPLEXES NONSPECIFIC T-WAVE ABNORMALITY Compared to ECG 10/25/2024 10:08:09 First degree AV block no longer present T-wave abnormality still present Electronically Signed On 01-05-2025 13:15:03 CDT by Alex Mead M.D. [email or web address] [id number]
[2025-01-05 10:56] VITALS: BP 150/85; PULSE 87; RESP 16; TEMP 36.5; O2SAT 97
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
--- OUTSIDE RECORDS SUMMARY | 2025-01-05 11:00 | XMS_ITS | Clinical Summary ---
Author Organization [facility] Address [address] Attn: Epic Prelude ADT SHAKIRA MONTIEL [address] Care Team Providers Care Hand Ii Cutter Name Role Phone Bry Kwon MD Primary Care Provider [phone] Allergies Active Allergy Reactions Criticality Noted Date Comments Trazodone Unknown 2024 Medications amLODIPine (NORVASC) 5 mg tablet Take 5 mg by mouth daily. 10/09/2024 Active atorvastatin (LIPITOR) 40 mg tablet Take 1 Tablet by mouth daily. 09/25/2024 Active pantoprazole (PROTONIX) 40 mg Tablet, Delayed Release (E.C.) Take 40 mg by mouth daily. 10/22/2024 Active oxyCODONE (ROXICODONE) 5 mg tabletIndicatio ns:Status post coronary artery bypass graft Take 0.5 Tablets (2.5 mg) by mouth every 4 hours as needed for Pain. Max Daily Amount: 15 mg 20 Tablet 10/31/2024 Active aspirin (JENA CHEWABLE) 81 mg Tablet, Chewable Take 1 Tablet (81 mg) by mouth daily with breakfast. 30 Tablet 2 11/02/2024 Active gabapentin (NEURONTIN) 100 mg tablet Take 1 Tablet (100 mg) by mouth 3 times daily as needed for Pain. 21 Tablet 11/01/2024 Active methocarbamoL (ROBAXIN) 500 mg tablet Take 0.5 Tablets (250 mg) by mouth every 6 hours as needed for Spasm. 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 2024 Hypertension 2024 Synagogue 2024 CVD (cerebrovascular disease) 2024 History of CVA (cerebrovascular accident) 2024 Dyslipidemia 2024 Encounters Date Type Department Care Team Description 01/01/2025 External Device Data STL ABSTRACTION Provider, Abstract 01/01/2025 External Device Data [facility] ABSTRACTION Provider, Abstract 12/18/2024 External Device Data ST[facility] ABSTRACTION Provider, Abstract 12/04/2024 External Device Data ST[facility] ABSTRACTION Provider, Abstract 11/27/2024 External Device Data STL ABSTRACTION Provider, Abstract 11/27/2024 External Device Data STL ABSTRACTION Provider, Abstract 11/27/2024 External Device Data STL ABSTRACTION Provider, Abstract 11/15/2024 2:00 PM CDT Office Visit [facility] [address] [place] [address] [place] [phone] Blaze Galvin DO Status post coronary artery bypass graft (Primary Dx) 11/15/2024 12:05 PM CDT - 11/15/2024 11:59 PM CDT Hospital Encounter [facility] [address] [place] [phone] Tyrone Vega II, MD Dixon, Druery J, MD Discharge Disposition: Home or Self Care 11/12/2024 8:58 AM CDT - 11/12/2024 11:59 PM CDT Hospital Encounter [facility] [place] [address] [place] [phone] Blaze Galvin DO Discharge Disposition: Home or Self Care 11/02/2024 Telephone [place] [phone] [place] [address] [place] [phone] Pratik Alberto Appointment Notification 11/01/2024 Orders Only [facility] [address] [place] [address] [place] [phone] Tyrone Vega II, MD Status post coronary artery bypass graft (Primary Dx); Acute blood loss anemia 10/31/2024 External Device Data STL ABSTRACTION Provider, Abstract 10/31/2024 External Device Data STL ABSTRACTION Provider, Abstract 10/31/2024 External Device Data STL ABSTRACTION Provider, Abstract 10/31/2024 External Device Data STL ABSTRACTION Provider, Abstract 10/30/2024 External Device Data STL ABSTRACTION Provider, Abstract 10/26/2024 2:20 PM CDT Ancillary Procedure [facility] Operating Room [address] [place] [address] 10/26/2024 1:54 PM CDT Anesthesia Event [facility] Cardiovascular Operating Room [address] [place] [phone] Deandre Maldonado II, DO 10/26/2024 12:40 PM CDT - 10/26/2024 7:00 PM CDT Surgery [facility] Operating Room [address] [place] [phone] Tyrone Vega II, MD CORONARY ARTERY BYPASS GRAFT WITH CONI 10/26/2024 Travel 2024 11:59 AM CDT - 11/01/2024 4:53 PM CDT Hospital Encounter [facility] 4D Surgery Heart Lung [address] [place] [address] Blaze Galvin, Tyrone Garibay II, MD Atherosclerosis of [place] coronary artery of [place] heart with unstable angina pectoris ([facility]/HCC) Discharge Disposition: Home or Self Care from Last 3 Months Social History Tobacco Use Types Packs/Day Years Used Date Smoking Tobacco: Former Cigarettes 1 37.7 S tarted: 1988 Passive Smoke Exposure: Past Feeling Safe Answer Date Recorded Are you in a relationship wi th someone who hurts you emotionally and/or physically? 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 Gender Identity Not on file Sexual Orientation Not on file Last Filed Vital Signs Vital Sign Reading Time Taken Comments Blood Pressure 134/74 11/15/2024 1:39 PM CDT Pulse 82 11/15/2024 1:39 PM CDT Temperature 36.8 C (98.3 F) 11/01/2024 11:00 AM CDT Respiratory Rate 19 11/01/2024 11:00 AM CDT Oxygen Saturation 96% 11/15/2024 1:39 PM CDT Inhaled Oxygen Concentration - - Weight 72.8 kg (160 lb 6.4 oz) 11/15/2024 1:39 P M CDT Height 167.6 cm (5' 6 ) 11/15/2024 1:39 PM CDT Body Mass Index 25.89 11/15/2024 1:39 PM CDT Plan of Treatment Health Maintenance Due Date Last Done Comments DTAP/TDAP/TD VACCINES (1 - Tdap) 10/26/1971 COLORECTAL SCREENING 1997 Colorectal Cancer Screening 1997 FIT-DNA Q 3 years 1997 FIT/FOBT Q 1 year 1997 Flex Sig/CT Colonography Q 5 years 1997 PNEUMOCOCCAL VACCINE 50+ YEARS (1 of 1 - PCV) 10/26/19 03 ZOSTER VACCINE (1 of 2) 2002 RSV VACCINE (60+ or ) (1 - Risk 60-74 years 1-dose series) 2012 Abdominal Aortic Aneurysm (AAA) Screening 2017 INFLUENZA VACCINE (#1) 2024 Medical Devices Implanted Type Area It Technical Specialist Device Identifier Shelf Expiration Date Model / Serial / Lot Clip Ligating Horizon Med Ti [id number] - Csc - [id number] Implanted:Qty: 1 on 10/26/2024 by Tyrone Vega II, MD at [facility] Clip N/A: Chest TELEFLEX- WECK CLOSURE SYS [id number] 05/15/2029 [id number] / / [id number] Clip Ligating Horizon Med Ti 052136 - Csc - [id number] Implanted:Qty: 1 on 10/26/2024 by Tyrone Vega II, MD at [facility] Clip N/A: Chest TELEFLEX- WECK CLOSURE SYS [id number] 05/15/2029 [id number] / / [id number] Clip Ligating Horizon Med Ti 503624 - Csc - [id number] Implanted:Qty: 1 on 10/26/2024 by Tyrone Vega II, MD at [facility] Clip N/A: Chest TELEFLEX- WECK CLOSURE SYS [id number] 05/15/2029 [id number] / / [id number] Clip Ligating Horizon Red 243656 - Csc - [id number] Implanted:Qty: 1 on 10/26/2024 by Tyrone Vega II, MD at [facility] Clip N/A: Chest TELEFLEX INC [id number] 07/20/2029 [id number] / / [id number] Clip Ligating Horizon Red 881219 - Csc - [id number] Implanted:Qty: 1 on 10/26/2024 by Tyrone Vega II, MD at [facility] Clip N/A: Chest TELEFLEX INC [id number] 07/20/2029 193066 / / [id number] Clip Ligating Horizon Red 379416 - Csc - [id number] Implanted:Qty: 1 on 10/26/2024 by Tyrone Vega II, MD at [facility] Clip N/A: Chest TELE[employer]LEX INC [id number] 07/20/2029 [id number] / / [id number] [place] Ptfe Thick 1.6mmx2.5x10.2 cm [id number] - [id number] Implanted:Qty: 1 on 10/26/2024 by Tyrone Vega II, MD at [facility] Graft N/A: Chest BARD KRYSTIAN VASC [id number] 09/12/2028 [id number] / / [id number] Orthostat 2.0gm Os- - [id number] Implanted:Qty: 1 on 10/26/2024 by Tyrone Vega II, MD at [facility] Hemostatic N/A: Chest ORTHOCON[employer] INC [id number] 05/18/2027 OS- Procedures Procedure Name Priority Date/Time Associated Diagnosis Comments XR CHEST PA AND LATERAL 2 VW Routine 11/15/2024 12:23 PM CDT Status post coronary artery bypass graft Acute blood loss anemia REFERENCE LAB PROCESSING FEE Routine 11/12/2024 9:19 AM CDT CVD (cerebrovascular disease) CBC WITH DIFFERENTIAL Routine 11/12/2024 9:17 AM CDT Status post coronary artery bypass graft Acute blood loss anemia BASIC METABOLIC PANEL Routine 11/12/2024 9:17 AM CDT Status post coronary artery bypass graft Acute blood loss anemia PULMONARY FUNCTION TEST Stat 11/07/19 9:54 AM CDT TELEMETRY REPORT 11/05/2024 2:32 PM CDT POC GLUCOSE Routine 11/01/2024 11:05 AM CDT POC GLUCOSE Routine 11/01/2024 7:07 AM CDT XR CHEST PA OR AP 1 VW Routine 4:34 AM CDT POC GLUCOSE Routine 10/31/2024 9:57 PM CDT POC GLUCOSE Routine 10/31/2024 5:27 PM CDT POC GLUCOSE Routine 10/31/2024 11:45 AM CDT POC GLUCOSE Routine 10/31/2024 7:01 AM CDT XR CHEST PA OR AP 1 VW Routine 4:44 AM CDT POC GLUCOSE Routine 10/30/2024 8:35 PM CDT POC GLUCOSE Routine 10/30/2024 5:49 PM CDT POC GLUCOSE Routine 10/30/2024 11:14 AM CDT POC GLUCOSE Routine 10/30/2024 7:08 AM CDT XR CHEST PA OR AP 1 VW Routine 6:15 AM CDT POC GLUCOSE Routine 10/29/2024 8:38 PM CDT POC GLUCOSE Routine 10/29/2024 5:09 PM CDT POC GLUCOSE Routine 10/29/2024 11:16 AM CDT POC GLUCOSE Routine 10/29/2024 7:09 AM CDT XR CHEST PA OR AP 1 VW Routine 5:25 AM CDT MAGNESIUM LEVEL Routine 10/29/2024 3:30 AM CDT BASIC METABOLIC PANEL Routine 10/29/2024 3:30 AM CDT POC GLUCOSE Routine 10/28/2024 8:14 PM CDT POC GLUCOSE Routine 10/28/2024 4:14 PM CDT POC GLUCOSE Routine 10/28/2024 3:11 PM CDT POC GLUCOSE Routine 10/28/2024 1:46 PM CDT POC GLUCOSE Routine 10/28/2024 12:13 PM CDT POC GLUCOSE Routine 10/28/2024 10:44 AM CDT EKG 12-LEAD Stat 10/28/2024 10:25 AM CDT POC GLUCOSE Routine 10/28/2024 7:18 AM CDT OXIMETRY Routine 10/28/2024 6:20 AM CDT XR CHEST PA OR AP 1 VW Routine 6:14 AM CDT POC GLUCOSE Routine 10/28/2024 5:00 AM CDT MAGNESIUM LEVEL Routine 10/28/2024 3:15 AM CDT BASIC METABOLIC PANEL Routine 10/28/2024 3:15 AM CDT POC GLUCOSE Routine 10/28/2024 3:13 AM CDT POC GLUCOSE Routine 10/28/2024 12:13 AM CDT POC GLUCOSE Routine 10/27/2024 10:02 PM CDT POC GLUCOSE Routine 10/27/2024 8:08 PM CDT POC GLUCOSE Routine 10/27/2024 7:09 PM CDT POC GLUCOSE Routine 10/27/2024 6:15 PM CDT POC GLUCOSE Routine 10/27/2024 5:11 PM CDT POC GLUCOSE Routine 10/27/2024 4:28 PM CDT POC GLUCOSE Routine 10/27/2024 3:13 PM CDT POC GLUCOSE Routine 10/27/2024 2:17 PM CDT POC GLUCOSE Routine 10/27/2024 1:07 PM CDT POC GLUCOSE Routine 10/27/2024 12:21 PM CDT XR ABDOMEN 1 VW Stat 10/27/2024 10:54 AM CDT POC GLUCOSE Routine 10/27/2024 10:00 AM CDT POC GLUCOSE Routine 10/27/2024 8:59 AM CDT POC GLUCOSE Routine 10/27/2024 8:25 AM CDT POC GLUCOSE Routine 10/27/2024 7:02 AM CDT XR CHEST PA OR AP 1 VW Routine 6:21 AM CDT OXIMETRY Routine 10/27/2024 6:13 AM CDT POC GLUCOSE Routine 10/27/2024 5:04 AM CDT POC GLUCOSE Routine 10/27/2024 3:09 AM CDT BASIC METABOLIC PANEL Routine 10/27/2024 3:06 AM CDT MAGNESIUM LEVEL Routine 10/27/2024 3:06 AM CDT POC GLUCOSE Routine 10/27/2024 2:10 AM CDT POC GLUCOSE Routine 10/27/2024 1:15 AM CDT OT EVAL AND TREAT Routine 10/27/2024 12: 16 AM CDT POC GLUCOSE Routine 10/27/2024 12:10 AM CDT POC GLUCOSE Routine 10/26/2024 11:03 PM CDT POC LACTIC ACID Routine 10/26/2024 10:10 PM CDT BLOOD GAS ARTERIAL Routine 10/26/2024 10 :10 PM CDT POC GLUCOSE Routine 10/26/2024 9:58 PM CDT XR CHEST PA OR AP 1 VW Stat 9:14 PM CDT POC GLUCOSE Routine 10/26/2024 9:07 PM CDT RT ASSESS AND TREAT Routine 10/26/2024 8 :20 PM CDT POC LACTIC ACID Routine 10/26/2024 7:38 PM CDT BLOOD GAS,(INCL. H+H, LYTES, GLUC) Routine 10/26/2024 7:38 PM CDT POC LACTIC ACID Routine 10/26/2024 6:33 PM CDT BLOOD GAS,(INCL. H+H, LYTES, GLUC) Routine 10/26/2024 6:33 PM CDT POC LACTIC ACID Routine 10/26/2024 6:01 PM CDT BLOOD GAS,(INCL. H+H, LYTES, GLUC) Routine 10/26/2024 6:01 PM CDT POC LACTIC ACID Routine 10/26/2024 5:24 PM CDT BLOOD GAS,(INCL. H+H, LYTES, GLUC) Routine 10/26/2024 5:24 PM CDT POC LACTIC ACID Routine 10/26/2024 4:53 PM CDT BLOOD GAS,(INCL. H+H, LYTES, GLUC) Routine 10/26/2024 4:53 PM CDT POC LACTIC ACID Routine 10/26/2024 3:32 PM CDT BLOOD GAS,(INCL. H+H, LYTES, GLUC) Routine 10/26/2024 3:32 PM CDT HI ANES INSERT ENDOTRACHEAL AIRWAY Routine 10/26/2024 2:53 PM CDT CVOR TRANSESOPHAGEAL STUDY Routine 10/26/2024 2:28 PM CDT TRANSESOPHAGEAL ECHOCARDIOGRAM 10/26/2024 12:40 PM CDT VEIN HARVEST ENDOSCOPIC 10/27/19 12:40 PM CDT INTRA AORTIC BALLOON PUMP INSERTION 10/26/2024 12:40 PM CDT CORONARY ARTERY BYPASS GRAFT WITH CONI 10/26/2024 12:40 PM CDT XR CHEST PA OR AP 1 VW Stat 10:26 AM CDT UNFRACTIONATED HEPARIN ACTIVITY Timed Study 10/26/2024 9:11 AM CDT XR CHEST PA OR AP 1 VW Routine 5:54 AM CDT OXIMETRY Routine 10/26/2024 5:20 AM CDT FERRITIN Routine 10/26/2024 3:19 AM CDT IRON, TIBC, AND PERCENT SATURATION Routine 10/26/2024 3:19 AM CDT PROTIME-INR Routine 10/26/2024 3:19 AM CDT PTT Routine 10/26/2024 3:19 AM CDT UNFRACTIONATED HEPARIN ACTIVITY Timed Study 10/26/2024 3:19 AM CDT MAGNESIUM LEVEL Routine 10/26/2024 3:19 AM CDT BASIC METABOLIC PANEL Routine 10/26/2024 3:19 AM CDT CBC WITHOUT DIFFERENTIAL Routine 10/26/2024 3:19 AM CDT POC GLUCOSE Routine 10/26/2024 3:[address] CHEST WO CONTRAST Stat 10/26/2024 2:29 AM CDT UNFRACTIONATED HEPARIN ACTIVITY Timed Study 2024 8:36 PM CDT POC GLUCOSE Routine 2024 8:34 PM CDT XR CHEST PA OR AP 1 VW Stat 8:28 PM CDT PREPARE RED BLOOD CELLS Routine 10/26/19 7:22 PM CDT PREPARE RED BLOOD CELLS Routine 10/26/19 7:22 PM CDT XR CHEST PA OR AP 1 VW Stat 6:20 PM CDT US CAROTID DOPPLER Stat 2024 4: 46 PM CDT US ELIE DOPPLER MAPPING LEGS BILAT Stat 2024 4:24 PM CDT VERIFICATION BLOOD GROUP Stat 2024 3:12 PM CDT TYPE AND SCREEN Routine 2024 2:04 PM CDT PTT Routine 2024 2:04 PM CDT CBC WITH DIFFERENTIAL Routine 2024 2:04 PM CDT COMPREHENSIVE METABOLIC PANEL Routine 2024 2:04 PM CDT HEMOGLOBIN A1C Stat 2024 2:04 PM CDT ECHOCARDIOGRAM W/ CONTRAST AGENT Stat 2024 1:06 PM CDT XR CHEST PA OR AP 1 VW Routine 12:25 PM CDT from Last 3 Months Results * XR CHEST PA AND LATERAL 2 VW (11/15/2024 12:23 PM CDT) Anatomical Region Laterality Modality Chest Computed Radiogr aphy 11/15/2024 12:2 3 PM CDT Impressions 11/15/2024 3:07 PM CDT IMPRESSION: Vascular congestion with small left pleural effusion. Narrative 11/15/2024 3:07 PM CDT Exam: XR CHEST PA AND LATERAL 2 VW Date/Time of Exam: 11/15/2024 12:23 PM Reason For Exam: See Diagnosis. Diagnosis: Status post coronary artery bypass graft; Acute blood loss anemia. Findings: The cardiac silhouette is mildly enlarged with surgical changes of sternotomy and CABG noted. Vascular congestion is present centrally. There is a small left pleural effusion. The right lung is clear. No pneumothorax. Procedure Note Kvng Vu MD - 11/15/2024 Exam: XR CHEST PA AND LATERAL 2 VW Date/Time of Exam: 11/15/2024 12:23 PM Reason For Exam: See Diagnosis. Diagnosis: Status post coronary artery bypass graft; Acute blood loss anemia. Findings: The cardiac silhouette is mildly enlarged with surgical changes of sternotomy and CABG noted. Vascular congestion is present centrally. There is a small left pleural effusion. The right lung is clear. No pneumothorax. IMPRESSION: Vascular congestion with small left pleural effusion. Tyrone Vega II, MD DIAGNOSTIC IMAGING ORDERA BLES Final Result * REFERENCE LAB PROCESSING FEE (11/12/2024 9:19 AM CDT) REFERENCE LAB SENDOUT Sent to Ref Lab 11/12/2024 11:00 AM CDT [facility] Other, specify BLOOD SPECIMEN / Unknown Collection / Unknown 11/12/2024 9:19 AM CDT 11/12/2024 9:19 AM CDT Blaze Galvin DO CHEMISTRY ORDERABLES Final Result [facility] CLIA # [id number] [address] [place] [address] * (ABNORMAL) CBC WITH DIFFERENTIAL (11/12/2024 9:17 AM CDT) Only the most recent of2 resultswithin the time period is included. WBC 7.7 3.8 - 10.8 Thousand/u L [facility] RBC 3.90(L) 4.20 - 5.80 Million/uL [facility] HEMOGLOBIN 11.6(L) 13.2 - 17.1 g/dL [facility] HEMATOCRIT 36.9(L) 38.5 - 50.0 % [facility] MCV 94.6 80.0 - 100.0 fL [facility] MCH 29.7 27.0 - 33.0 pg [facility] MCHC 31.4(L) 32.0 - 36.0 g/dL [facility] Comment: For adults, a slight decrease in the calculated MCHC value (in the range of 30 to 32 g/dL) is most likely not clinically significant; however, it should be interpreted with caution in correlation with other red cell parameters and the patient's clinical condition. RDW 13.3 11.0 - 15.0 % [facility] PLATELETS 525(H) 140 - 400 Thousand/u L [facility] MPV 8.3 7.5 - 12.5 fL [facility] NEUTROPHIL ABSOLUTE 4,982 1,500 - 7,800 cells/uL [facility] LYMPHOCYTE ABSOLUTE 1,617 850 - 3,900 cells/uL [facility] MONOCYTE ABSOLUTE 662 200 - 950 cells/uL [facility] EOSINOPHIL ABSOLUTE 339 15 - 500 cells/uL [facility] BASOPHILS ABSOLUTE 100 0 - 200 cells/uL [facility] NEUTROPHIL 64.7 % [facility] LYMPHOCYTES 21.0 % [facility] MONOCYTE 8.6 % [facility] EOSINOPHILS 4.4 % [facility] BASOPHILS 1.3 % [facility] Comment: Test Performed at: [facility] [address] [place] [address] Sweta Herron MD Blood 11/12/2024 9:17 AM CDT 11/13/2024 3:11 AM CDT us Tyrone Vega II, MD HEMATOLOGY ORDERABLES Fin al Result Performing Organization Address [facility] Co de Phone Number [facility] [phone] [facility] [address] [address] [phone] * (ABNORMAL) BASIC METABOLIC PANEL (11/12/2024 9:17 AM CDT) Only the most recent of5 resultswithin the time period is included. Pathologist [facility] GLUCOSE 153(H) 65 - 99 mg/dL [facility] Comment: Fasting reference interval For someone without known diabetes, a glucose value >125 mg/dL indicates that they may have diabetes and this should be confirmed with a follow-up test. BUN 12 7 - 25 mg/dL [facility] CREATININE 1.00 0.70 - 1.28 mg/dL [facility] GFR 80 > OR = 60 mL/min/1.7 3m2 [facility] BUN/CREAT RATIO SEE NOTE: 6 - 22 (calc) [facility] Comment: Not Reported: BUN and Creatinine are within reference range. SODIUM 137 135 - 146 mmol/L [facility] POTASSIUM 4.5 3.5 - 5.3 mmol/L [facility] CHLORIDE 99 98 - 110 mmol/L [facility] CO2 28 20 - 32 mmol/L [facility] CALCIUM 9.3 8.6 - 10.3 mg/dL [facility] Comment: Test Performed at: [facility] [address] [place] [address] Sweta Herron MD Blood 11/12/2024 9:17 AM CDT 11/13/2024 3:11 AM CDT Tyrone Vega II, MD CHEMISTRY ORDERABLES Payal l Result Performing Organization Address City/[facility]/ZIP Co de Phone Number [facility] [phone] [facility] [address] [place] [phone] * PULMONARY FUNCTION TEST (11/06/2024 9:54 AM CDT) Impressions Cori Hill MD - 11/06/2024 9:54 AM CDT Spirometry with preserved FEV1/FVC. Both FEV1 and FVC are reduced. FEV1 is 73.1% predicted. Clinical correlation recommended. Cori Hill MD, 11/06/2024 9:55 AM Blaze Galvin DO PFT ORDERABLES Final Result * TELEMETRY REPORT (11/05/2024 2:32 PM CDT) Provider Scanning ECG ORDERABLES Final Result * (ABNORMAL) POC GLUCOSE (11/01/2024 11:05 AM CDT) Only the most recent of48 resultswithin the time period is included. [facility] GLUCOSE POC 134(H) 74 - 99 mg/dL 11/01/2024 11:05 AM CDT [facility] SPECIMEN SOURCE, GLUCOSE POC Capillary 11/01/2024 11:05 AM CDT [facility] Blood, whole 11/01/2024 11:0 5 AM CDT 11/01/2024 11:13 AM CDT Tyrone Vega II, MD POINT OF CARE TESTING Fin al Result [facility] CLIA # [id number] [facility] [address] [place] [address] * XR CHEST PA OR AP 1 VW (11/01/2024 4:34 AM CDT) Only the most recent of12 resultswithin the time period is included. Anatomical Region Laterality Modality Chest Computed Radiogr aphy 11/01/2024 4:34 AM CDT Impressions 11/01/2024 8:17 AM CDT IMPRESSION: See below. Exam: XR CHEST PA OR AP 1 VW Date/Time of Exam: 11/01/2024 4:34 AM Reason For Exam: Coronary Artery Disease CAD. Diagnosis: Status post coronary artery bypass graft. Findings: Pleural parenchymal opacity in the left lower lung appears slightly improved from 10/31/2024. There has otherwise been no significant change. No new lung opacity. No pneumothorax. Narrative Procedure Note Ivan Mcdonald MD - 11/01/2024 IMPRESSION: See below. Exam: XR CHEST PA OR AP 1 VW Date/Time of Exam: 11/01/2024 4:34 AM Reason For Exam: Coronary Artery Disease CAD. Diagnosis: Status post coronary artery bypass graft. Findings: Pleural parenchymal opacity in the left lower lung appears slightly improved from 10/31/2024. There has otherwise been no significant change. No new lung opacity. No pneumothorax. Jennifer Palmer [facility] DIAGNOSTIC IMAGING ORDER SHAKEEL Final Result * MAGNESIUM LEVEL (10/29/2024 3:30 AM CDT) Only the most recent of4 resultswithin the time period is included. MAGNESIUM 2.1 1.6 - 2.4 mg/dL 10/29/2024 4:11 AM CDT [facility] Blood Venipuncture / Unknown 10/29/2024 3:30 AM CDT 10/29/2024 3:39 AM CDT Tyrone Vega II, MD CHEMISTRY ORDERABLES Payal l Result [facility] CLIA # [id number] [address] [place] [address] [place] [address] * EKG 12-LEAD (10/28/2024 10:25 AM CDT) 10/28/2024 10:2 5 AM CDT Narrative INTERFACE SYSTEM - 10/28/2024 1:18 PM CDT [address] [address] Test Date: 2024-10-28 Pat Name: DALTON DOUGLAS Department: 12 Room: [address] [place] [address] Gender: Male 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: [id number] : 1950 Requested By: Order Number: [id number] Reading MD: Beatris Brown Measurements Intervals [place] Rate: 68 P: 0 HI: 0 QRS: 36 QRSD: 88 T: 69 QT: 356 QTc: 378 Interpretive Statements Accelerated Junctional rhythm Nonspecific ST and T wave abnormality Abnormal ECG Electronically Signed On 10-28-2024 13:18:59 CDT by Beatris Brown Procedure Note Provider, Historical 10/28/[address] [address] Test Date: 2024-10-28 Pat Name: DALTON DOUGLAS Department: 12 Room: [address] [place] [address] Gender: Male 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: [id number] : 1950 Requested By: Order Number: [id number] Reading MD: Beatris Brown Measurements Intervals [place] Rate: 68 P: 0 HI: 0 QRS: 36 QRSD: 88 T: 69 QT: 356 QTc: 378 Interpretive Statements Accelerated Junctional rhythm Nonspecific ST and T wave abnormality Abnormal ECG Electronically Signed On 10-28-2024 13:18:59 CDT by Beatris Brown us Tyrone Vega II, MD ECG ORDERABLES Final Res ult INTERFACE SYSTEM Refer to clinic/hospital department * (ABNORMAL) OXIMETRY (10/28/2024 6:20 AM CDT) Only the most recent of3 resultswithin the time period is included. OXYHEMOGLOBIN POC 69.2 40.0 - 70.0 % 10/28/2024 6:20 AM CDT [facility] HEMOGLOBIN POC 10.8(L) 12.0 - 18.0 g/dL 10/28/2024 6:20 AM CDT [facility] O2 SATURATION POC 71(H) 40 - 70 % 025 6:20 AM CDT [facility] SPECIMEN SOURCE, GASES POC Venous Mixed 10/28/2024 6:20 AM CDT [facility] SAMPLE SITE, GASES POC N-SY 10/28/2024 6:20 AM CDT [facility] PUNC SITE POC No Charge 10/28/2024 6:20 AM CDT [facility] Blood 10/28/2024 6:20 AM CDT 10/28/2024 6:21 AM CDT us Tyrone Vega II, MD ABG ORDERABLES Final [facility] [id number] [address] [place] [id number] * XR ABDOMEN 1 VW (10/27/2024 10:54 AM CDT) Anatomical Region Laterality Modality Abdomen Computed Radiogr aphy 10/27/2024 10:5 4 AM CDT Impressions 10/27/2024 11:04 AM CDT IMPRESSION: Air within nondistended small bowel and colon suggestive of a postoperative ileus. Narrative 10/27/2024 11:04 AM CDT Exam: XR ABDOMEN 1 VW Date/Time of Exam: 10/27/2024 10:54 AM Reason For Exam: Abdomen Distension. Diagnosis: See Reason for Exam. Findings: A nasogastric tube is present with tip in the stomach. Chest support apparatus as described on recent chest radiograph. Air is present throughout nondistended small bowel and colon. No definite free intraperitoneal air on the supine images. A Tillman catheter is present in the bladder. The osseous structures are demineralized. Procedure Note Kvng Vu MD - 10/27/2024 Exam: XR ABDOMEN 1 VW Date/Time of Exam: 10/27/2024 10:54 AM Reason For Exam: Abdomen Distension. Diagnosis: See Reason for Exam. Findings: A nasogastric tube is present with tip in the stomach. Chest support apparatus as described on recent chest radiograph. Air is present throughout nondistended small bowel and colon. No definite free intraperitoneal air on the supine images. A Tillman catheter is present in the bladder. The osseous structures are demineralized. IMPRESSION: Air within nondistended small bowel and colon suggestive of a postoperative ileus. Serjio Louise PA-C DIAGNOSTIC IMAGING ORDERA BLES Final Result * (ABNORMAL) POC LACTIC ACID (10/26/2024 10:10 PM CDT) Only the most recent of7 resultswithin the time period is included. LACTIC ACID POC 2.2(H) <=2.0 mmol/L 10/26/2024 10:10 PM CDT [facility] SPECIMEN SOURCE, GASES POC Arterial 10/26/2024 10:10 PM CDT [facility] SITE POC No Charge 10/26/2024 10:10 PM CDT [facility] Blood 10/26/2024 10:1 0 PM CDT 10/26/2024 10:12 PM CDT Narrative [facility] - 10/26/2024 10:10 PM CDT References ranges displayed are for Arterial samples. Tyrone Vega II, MD POINT OF CARE TESTING Fin al Result [facility] CLIA # [id number] [address] [place] [address] * (ABNORMAL) BLOOD GAS ARTERIAL (10/26/2024 10:10 PM CDT) Pathologist [facility] PH BLOOD POC 7.45 7.35 - 7.45 10/26/2024 10:10 PM CDT [facility] PCO2 POC 31(L) 35 - 45 mm Hg 10/26/2024 10:10 PM CDT [facility] PO2 POC 119(H) 80 - 105 mm Hg 10/26/2024 10:10 PM [facility] HCO3 (CALC) POC 22 22 - 26 mmol/L 10/26/2024 10:10 PM [facility] HEMOGLOBIN POC 10.9(L) 12.0 - 18.0 g/dL 10/26/2024 10:10 PM [facility] BASE EXCESS POC -3(L) -2 - 3 mmol/L 10/26/2024 10:10 PM [facility] O2 SATURATION POC 100(H) 95 - 98 % 025 10:10 PM [facility] SODIUM POC 137(L) 138 - 146 mmol/L 10/26/2024 10:10 PM [facility] POTASSIUM POC 4.1 3.5 - 4.9 mmol/L 10/26/2024 10:10 PM [facility] HEMATOCRIT POC 33(L) 38 - 51 % 10/26/2024 10:10 PM [facility] PH TEMP CORRECT 7.45 7.35 - 7.45 10/26/2024 10:10 PM [facility] PCO2 TEMP CORRECT 31(L) 35 - 45 mm Hg 10/26/2024 10:10 PM [facility] PO2 TEMP CORRECT 119(H) 80 - 105 mm Hg 10/26/2024 10:10 PM [facility] SPECIMEN SOURCE, GASES POC Arterial 10/26/2024 10:10 PM [facility] CALCIUM IONIZED POC 5.1 4.8 - 5.2 mg/dL 10/26/2024 10:10 PM [facility] TCO2 (CALC) POC 23 23 - 27 mmol/L 10/26/2024 10:10 PM [facility] FIO2 40.0 21.0 - 100.0 % 10/26/2024 10:10 PM [facility] Comment:FIO2 values reported <21.0 indicate O2 flow in Liters/minute. Values >/= 21.0 indicate percent O2. P/F RATIO POC 298 10/26/2024 10:10 PM CDT [facility] Comment: P/F Ratio Interpretation ARDS SEVERITY PaO2/FiO2 Mild 200-300 Moderate 100-200 Severe <100 PEEP POC 8 10/26/2024 10:10 PM CDT [facility] PUN SITE POC No Charge 10/26/2024 10:10 PM CDT [facility] Blood, arterial 10/26/2024 1 0:10 PM CDT 10/26/2024 10:12 PM CDT us Tyrone Vega II, MD ABG ORDERABLES Final Res ult [facility] CLIA # [id number] [facility] [phone] * (ABNORMAL) BLOOD GAS,(INCL. H+H, LYTES, GLUC) (10/26/2024 7:38 PM CDT) Only the most recent of6 resultswithin the time period is included. PH BLOOD POC 7.41 7.35 - 7.45 10/26/2024 7:38 PM CDT [facility] PCO2 POC 36 35 - 45 mm Hg 10/26/2024 7:38 PM CDT [facility] PO2 POC 190(H) 80 - 105 mm Hg 10/26/2024 7:38 PM CDT [facility] TCO2 (CALC) POC 24 23 - 27 mmol/L 10/26/2024 7:38 PM T [facility] HCO3 (CALC) POC 23 22 - 26 mmol/L 10/26/2024 7:38 PM CDT [facility] O2 SATURATION POC 100(H) 95 - 98 % 10/26/2024 7:38 PM CDT [facility] BASE EXCESS POC -2 -2 - 3 mmol/L 10/26/2024 7:38 PM CDT [facility] HEMOGLOBIN POC 9.8(L) 12.0 - 18.0 g/dL 10/26/2024 7:38 PM T [facility] HEMATOCRIT POC 29(L) 38 - 51 % 10/26/2024 7:38 PM T [facility] GLUCOSE POC 122(H) 74 - 99 mg/dL 10/26/2024 7:38 PM T [facility] SODIUM POC 137(L) 138 - 146 mmol/L 10/26/2024 7:38 PM T [facility] POTASSIUM POC 4.1 3.5 - 4.9 mmol/L 10/26/2024 7:38 PM T [facility] CALCIUM IONIZED POC 5.2 4.8 - 5.2 mg/dL 10/26/2024 7:38 PM T [facility] PH TEMP CORRECT 7.41 7.35 - 7.45 10/27/19 25 7:38 PM T [facility] PCO2 TEMP CORRECT 36 35 - 45 mm Hg 10/26/2024 7:38 PM T [facility] PO2 TEMP CORRECT 190(H) 80 - 105 mm Hg 10/26/2024 7:38 PM [facility] SPECIMEN SOURCE, GASES POC Arterial 10/26/2024 7:38 PM [facility] PATIENT'S TEMPERATURE POC 37.0 degrees 10/26/2024 7:[address] [facility] SITE POC No Charge 10/26/2024 7:38 PM [facility] Blood, arterial 10/26/2024 7 :38 PM CDT 10/26/2024 7:52 PM CDT us Tyrone Vega II, MD ABG ORDERABLES Final Res ult [facility] CLIA # [id number] [address] [place] [id number] * HI ANES INSERT ENDOTRACHEAL AIRWAY (10/26/2024 2:53 PM CDT) Narrative Haley Hoskins CRNA - 10/26/2024 2:53 PM CDT Haley Hoskins CRNA 10/26/2024 2:55 PM Airway Date/Time: 10/26/2024 2:53 PM Location: OR Plan: routine intubation Patient Identity Confirmed by: Verbally with patient and armband Staffing Performed: DAVON/CAA Authorized by: Deandre Maldonado II, DO Performed by: Haley Hoskins CRNA Indications and Patient Condition: Indications for Airway Management: Anesthesia Sedation Level: general anesthesia Preoxygenated: yes Patient Position: Sniffing Mask Difficulty Assessment: 0 - not attempted Plan to extubate at end of case: Yes Final Airway Details: Final Airway Type: Endotracheal airway ETT Cuffed: Yes Cuff Volume (mL): 7 Technique Used for Successful ETT Placement: Direct laryngoscopy and video laryngoscopy Devices/Methods Used in Placement: Cricoid pressure and intubating stylet Reason for advanced technique: pre-op assessment Blade Size: 4 Insertion Site: Oral ETT Size (mm): 8.0 Video Laryngoscopy Devices: GlideScope Measured from: Teeth ETT to Teeth (cm): 24 Tube secured with: Tape Placement Verified by: auscultation, end tidal CO2 and chest rise Cormack-Lehane Classification: Grade I - full view of glottis Number of Attempts at Approach: 1 Additional Procedure Information: atraumatic and dentition unchanged Deandre Maldonado II, DO PROCEDURE/MINOR TOWNSEND RGICAL ORDERABLES Final Result * CVOR TRANSESOPHAGEAL STUDY (10/26/2024 2:28 PM CDT) EJECTION FRACTION EF: INTERFACE SYSTEM 10/26/2024 2:28 PM CDT Narrative INTERFACE SYSTEM - 10/26/2024 10:02 PM CDT [facility] Cardiac Perioperative Services [address] [place] [address] Perioperative Echo Patient: Dalton Douglas Study ID: [id number] Gender: M : 1950 Age: 74 Room: [facility] Study Date: 10/26/2024 Pt Status: Inpatient Study Time: 02:28:53 PM [facility] #: [id number] Ordering:Deandre Maldonado Ii Summary and Conclusion: - Left ventricle: The estimated ejection fraction is 60-65%, by visual assessment. - Right ventricle: The cavity size is at the upper limits of normal. Systolic function is normal. The estimated ejection fraction is , by visual assessment. - Mitral valve: There is mild regurgitation. - Tricuspid valve: There is trivial to mild regurgitation. Impressions: Pre Pump CABG, IABP: IABP tip noted to extend into L Subclavian orfice needing to be pulled back initially. EF60-65%, Mild MR, no other notable valvular disease. Post Pump CABG, IABP: Uneventful CPB separation, EF65-70%, Mild MR, Mild TR, IABP withdrawn and in good position distal to L Subclavian, visualized portions of the aorta were noted to be intact and without dissection followind decannulation. Procedure information: Procedure: General anesthesia was administered for intubation by anesthesiology staff. Transesophageal echocardiography was performed. An adult multiplane transesophageal probe was inserted by the anesthesiologist without difficulty. Image quality was adequate. Perioperative Echo. Study date: 10/26/2024. Study time: 02:28 PM. Location: Operating room. Cardiac Anatomy: LEFT VENTRICLE: The estimated ejection fraction is 60-65%, by visual assessment. RIGHT VENTRICLE: The cavity size is at the upper limits of normal. Systolic function is normal. The estimated ejection fraction is , by visual assessment. LEFT ATRIUM: The atrium is normal in size. No BART thrombus. RIGHT ATRIUM: The atrium is normal in size. ATRIAL SEPTUM: Intact, No PFO by color doppler. AORTIC VALVE: The annulus is normal-sized. There is no stenosis. There is trace regurgitation. MITRAL VALVE: The annulus is normal-sized. There is no evidence for stenosis. There is mild regurgitation. TRICUSPID VALVE: The annulus is normal-sized. There is no evidence for stenosis. There is trivial to mild regurgitation. PERICARDIUM: The pericardium is normal in appearance. AORTA: Ascending aorta: The vessel is 33.0mm diameter. Prepared and Electronically Authenticated Deandre Maldonado 10/26/2024 22:01 Procedure Note Deandre Maldonado II, DO - 10/26/2024 [facility] [place] [address] Perioperative Echo Patient: Dalton Douglas Study ID:[id number] Gender: M : 1950 Age: 74 Room: [facility] Study Date: 10/26/2024 Pt Status:Inpatient Study Time: 02:28:53 PM [facility] #: [id number] Ordering:Deandre Maldonado Ii Jose D Summary and Conclusion: - Left ventricle: The estimated ejection fraction is 60-65%, by visual assessment. - Right ventricle: The cavity size is at the upper limits of normal.Systolic function is normal. The estimated ejection fraction is , by visual assessment. - Mitral valve: There is mild regurgitation. - Tricuspid valve: There is trivial to mild regurgitation. Impressions: Pre Pump CABG, IABP: IABP tip noted to extend into LSubclavian orfice needing to be pulled back initially. EF60-65%, Mild MR, no other notable valvular disease. Post Pump CABG, IABP: Uneventful CPB separation, EF65-70%, Mild MR, MildTR, IABP withdrawn and in good position distal to L Subclavian, visualized portions of the aorta were noted to be intact and without dissectionfollowind decannulation. Procedure information: Procedure: General anesthesia was administeredfor intubation by anesthesiology staff. Transesophageal echocardiography was performed. An adult multiplane transesophageal probe was inserted by the anesthesiologist without difficulty. Image quality was adequate. Perioperative Echo. Study date: 10/26/2024. Study time: 02:28 PM. Location: Operating room. Cardiac Anatomy: LEFT VENTRICLE: The estimated ejection fraction is 60-65%, by visual assessment. RIGHT VENTRICLE: The cavity size is at the upper limits of normal.Systolic function is normal. The estimated ejection fraction is , by visualassessment. LEFT ATRIUM: The atrium is normal in size. No BART thrombus. RIGHT ATRIUM: The atrium is normal in size. ATRIAL SEPTUM: Intact, No PFO by color doppler. AORTIC VALVE: The annulus is normal-sized. There is no stenosis. Thereis trace regurgitation. MITRAL VALVE: The annulus is normal-sized. There is no evidence for stenosis. There is mild regurgitation. TRICUSPID VALVE: The annulus is normal-sized. There is no evidence for stenosis. There is trivial to mild regurgitation. PERICARDIUM: The pericardium is normal in appearance. AORTA: Ascending aorta: The vessel is 33.0mm diameter. Prepared and Electronically Authenticated Deandre Maldonado 10/26/2024 22:01 us Deandre Maldonado II DO ECHO ORDERABLES Fi nal Result INTERFACE SYSTEM Refer to clinic/hospital department * UNFRACTIONATED HEPARIN MONITORING (10/26/2024 9:11 AM CDT) Only the most recent of3 resultswithin the time period is included. ANTI-XA UNFRAC HEP 0.46 See Interpretation IU/mL 10/26/2024 9:40 AM CDT [facility] Blood Venipuncture / Unknown 10/26/2024 9:11 AM CDT 10/26/2024 9:19 AM CDT Narrative [facility] LABORATORY [facility] - 10/26/2024 9:40 AM CDT Therapeutic Range: PT/DVT Heparin Protocol 0.3 - 0.7 IU/ml Cardiac Heparin Protocol 0.3 - 0.6 IU/ml The reference range for this test is specific to the anticoagulant and is not appropriate for monitoring patients on a DOAC protocol. us Blaze Galvin DO HEMATOLOGY ORDERABLES Final Result Performing Organization Address [facility] Co de Phone Number [facility] CLIA # [id number] [facility] [phone] * (ABNORMAL) IRON, TIBC, AND PERCENT SATURATION (10/26/2024 3:19 AM CDT) IRON 79 59 - 158 ug/dL 10/26/2024 8:35 AM CDT [facility] TIBC 233(L) 250 - 450 ug/dL 10/26/2024 8:35 AM CDT [facility] IRON % SATURATION 34 15 - 60 % 10/26/2024 8:35 AM CDT [facility] Blood Arterial / Unknown 3:19 AM CDT 10/26/2024 3:24 AM CDT Jaclyn Cid MD CHEMISTRY ORDERABLES Final Resul t Performing Organization Address [facility] Co de Phone Number [facility] CLIA # [id number] [address] [phone] * (ABNORMAL) PTT (10/26/2024 3:19 AM CDT) Only the most recent of2 resultswithin the time period is included. PTT 79.8(H) 24.8 - 37.2 seconds 10/26/2024 3:43 AM CDT [facility] Blood Arterial / Unknown 3:19 AM CDT 10/26/2024 3:24 AM CDT [facility] - 10/26/2024 3:43 AM CDT Therapeutic Range: Hi-level PE/DVT heparin protocol 80.1 - 95.0 sec Lo-level PE/DVT heparin protocol 70.1 - 85.0 sec Cardiac Heparin Protocol 70.1 - 100.0 sec Blaze Galvin DO HEMATOLOGY ORDERABLES Final Result [facility] # [id number] [address] [place] [id number] * PROTIME-INR (10/26/2024 3:19 AM CDT) PROTIME 14.2 12.7 - 14.9 Seconds 10/26/2024 3:43 AM CDT [facility] INR 1.0 0.8 - 1.2 10/26/2024 3:43 AM CDT [facility] Blood Arterial / Unknown 3:19 AM CDT 10/26/2024 3:24 AM CDT [facility] - 10/26/2024 3:43 AM CDT Expected Values for INR: DVT/PE Goal INR 2.5; range 2.0 - 3.0 Valve Replacement Tissue Goal INR 2.5; range 2.0 - 3.0 Valve Replacement Mechanical Goal INR 3.0; range 2.5 - 3.5 POST-AZ Goal INR 2.5; range 2.0 - 3.0 or Goal INR 3.0; range 2.5 - 3.5 Atrial Fibrillation Goal INR 2.5; range 2.0 - 3.0 Ischemic Stroke Goal INR 2.5; range 2.0 - 3.0 us Blaze Galvin DO HEMATOLOGY ORDERABLES Final Result [facility] SABRINA # [id number] [id number] [place] [place] [address] * (ABNORMAL) CBC WITHOUT DIFFERENTIAL (10/26/2024 3:19 AM CDT) [facility] WBC 10.7 4.8 - 10.8 K/uL 10/26/2024 3:29 AM CDT [facility] RBC 4.54(L) 4.60 - 6.20 M/uL 10/26/2024 3:29 AM CDT [facility] HEMOGLOBIN 13.4(L) 14.0 - 18.0 g/dL 10/26/2024 3:29 AM CDT [facility] HEMATOCRIT 39.8(L) 41.0 - 53.0 % 10/26/2024 3:29 AM CDT [facility] MCV 87.7 84.0 - 103.0 fL 10/26/2024 3:29 AM CDT [facility] MCH 29.5 27.0 - 34.0 pg 10/26/2024 3:29 AM CDT [facility] MCHC 33.7 30.0 - 35.0 g/dL 10/26/2024 3:29 AM CDT [facility] PLATELETS 255 140 - 440 K/uL 10/26/2024 3:29 AM CDT [facility] MPV 8.8(L) 8.9 - 12.8 fL 10/26/2024 3:29 AM CDT [facility] RDW 13.6 11.0 - 14.5 % 10/26/2024 3:29 AM CDT [facility] RDW-STDEV 43.8 37.0 - 54.0 fL 10/26/2024 3:29 AM CDT [facility] Blood Arterial / Unknown 3:19 AM CDT 10/26/2024 3:23 AM CDT Jennifer Palmer MANAGER [employer]ITY [employer]OVEMENT HEMATOLOGY ORDERABLES Fi nal Result Performing Organization Address [facility] Co de Phone Number [facility] CLIA # [id number] [address] [place] [address] * FERRITIN (10/26/2024 3:19 AM CDT) FERRITIN 204.8 30.0 - 400.0 ng/mL 10/26/2024 10:20 AM CDT [facility] Blood Arterial / Unknown 3:19 AM CDT 10/26/2024 3:24 AM CDT Jaclyn Cid MD CHEMISTRY ORDERABLES Final Resul t Performing Organization Address [facility] Co de Phone Number [facility] CLIA # [id number] [address] [address] [place] [address] * CT CHEST WO CONTRAST (10/26/2024 2:29 AM CDT) Anatomical Region Laterality Modality Chest Computed Tomogra phy 10/26/2024 2:21 AM CDT Impressions 10/26/2024 4:27 PM CDT IMPRESSION: Please see below. Exam: CT CHEST WO CONTRAST Date/Time of Exam: 10/26/2024 2:29 AM REASON FOR EXAM: Aortic atherosclerosis, CABG, aortic atherosclerosis. DIAGNOSIS: See Reason for Exam. Technique: CT of the chest was performed without the administration of intravenous contrast. Findings: There is a 4 mm nodule in the left lower lobe on image 198 series 3 and coronal image 151 series 601. A tiny nodule in the right lung base is seen on axial image 2/3 of series 3 and coronal image 195 series 601 measuring 4 mm as well. The lungs are otherwise clear. There is mild paraseptal emphysema in the lung apices. A couple calcified granulomas are noted. There is no pneumothorax or pleural effusion. The airways are patent. There is no pathologic mediastinal or hilar adenopathy. A right internal jugular Deaver-Devi catheter is seen extending to the left main pulmonary but is coiled back upon itself ending in the main pulmonary artery and a retrograde fashion. There are scattered mild atherosclerotic changes which are incompletely evaluated due to noncontrast technique. The gallbladder is distended but otherwise within normal limits. Imaged abdominal contents are otherwise unremarkable. There is mild cervicothoracic spondylosis. IMPRESSION: 1. The right internal jugular Deaver-Devi catheter is coiled in the left main pulmonary artery with the tip ending retrograde, back in the main pulmonary artery. 2. Bilateral 4 mm pulmonary nodules. Follow-up scan in 12 months is recommended. Narrative Procedure Note Pepe Nelson MD - 10/26/2024 IMPRESSION: Please see below. Exam: CT CHEST WO CONTRAST Date/Time of Exam: 10/26/2024 2:29 AM REASON FOR EXAM: Aortic atherosclerosis, CABG, aortic atherosclerosis. DIAGNOSIS: See Reason for Exam. Technique: CT of the chest was performed without the administration of intravenous contrast. Findings: There is a 4 mm nodule in the left lower lobe on image 198 series 3 and coronal image 151 series 601. A tiny nodule in the right lung base is seen on axial image 2/3 of series 3 and coronal image 195 series 601 measuring 4 mm as well. The lungs are otherwise clear. There is mild paraseptal emphysema in the lung apices. A couple calcified granulomas are noted. There is no pneumothorax or pleural effusion. The airways are patent. There is no pathologic mediastinal or hilar adenopathy. A right internal jugular Deaver-Devi catheter is seen extending to the left main pulmonary but is coiled back upon itself ending in the main pulmonary artery and a retrograde fashion. There are scattered mild atherosclerotic changes which are incompletely evaluated due to noncontrast technique. The gallbladder is distended but otherwise within normal limits. Imaged abdominal contents are otherwise unremarkable. There is mild cervicothoracic spondylosis. IMPRESSION: 1. The right internal jugular Deaver-Devi catheter is coiled in the left main pulmonary artery with the tip ending retrograde, back in the main pulmonary artery. 2. Bilateral 4 mm pulmonary nodules. Follow-up scan in 12 months is recommended. Blaze Galvin DO CT ORDERABLES Final Result * PREPARE RED BLOOD CELLS (2024 7:22 PM CDT) Only the most recent of2 resultswithin the time period is included. Pathologist [facility] COMPONENT TYPE [id number] [facility] -- [place] COMPONENT IDENTIFICATION [id number] [facility] -- [place] UNIT ABO A [facility] [place] UNIT RH POS [facility] [place] CROSSMATCH Compatible [facility] -- [place] COMPONENT STATUS Returned [facility] -- [place] COMPONENT EXPIRATION DATE/TIME [id number] [facility] -- [place] COMPONENT CODING SYSTEM 6200 [facility] [place] VOLUME, BLOOD PRODUCT 350 [facility] [place] 2024 7:22 PM CDT [facility] TRANSFUSION ORDERA BLES Edited Result - Final [facility] SERVICES -- [place] CLIA#[id number] [address] [place] [address], * US CAROTID DOPPLER (2024 4:46 PM CDT) Anatomical Region Laterality Modality Neck Ultrasound 2024 2:07 PM CDT Narrative 10/28/2024 8:46 PM CDT [facility] Cardiovascular Services Noninvasive Vascular Laboratory [address] [place] [address] Noninvasive Vascular Lab Cerebrovascular Exam Carotid Duplex Patient: Dalton Douglas Study ID: US CAROTID DOPPL Gender: M : 1950 Age: 74 Room: Height: Weight: 74.8kg BSA: Pt status: Inpatient Study Date: 2024 Study Time: 02:07:09 PM BSA: Ordering: Blaze Galvin Interpreting:Karina Watson Building Drafter: Vega So Indications: Pre-Op workup for CABG. Pt has hx of right carotid endarterectomy performed in [place] approximately 2 to 3 years ago per pt verbal history. Summary Impression: 1. Study demonstrates velocities consistent with a >70% stenosis involving the right internal carotid artery but ratio more consistent with 50-69%. Elevated velocities may be secondary to compensatory flow secondary to contralateral occlusion. 2. 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 3. The right vertebral artery segment visualized is patent with antegrade flow. The left vertebral artery visualized had antegrade flow with an abnormal low velocity, blunted flow signal. Recommendations: Consider CTA if concern for significant stenosis remains. Study data: Carotid duplex study. Complete study and Doppler flow study including spectral analysis, color and whitney scale imaging. Weight: 74.8kg. Weight: 165lb. Location: Bedside. Patient status: Inpatient. Study status: STAT. Procedure: A vascular evaluation was performed. Image quality was good. Arterial flow: - Right CCA proximal: Right CCA proximal 0.99m/sec 0.23m/sec - Right CCA distal: Right CCA distal 1.22m/sec 0.37m/sec - Right ICA proximal: Right ICA proximal 2.83m/sec 1.01m/sec 2.32 2.69 - Right ICA distal: Right ICA distal 1.47m/sec 0.61m/sec 1.21 1.62 - Right ECA: Right ECA 4.54m/sec - Right vertebral: Right vertebral 0.93m/sec - Left CCA proximal: Left CCA proximal 1.13m/sec 0.08m/sec - Left CCA distal: Left CCA distal 1.21m/sec 0.1m/sec - Left ICA proximal: Left ICA proximal 0m/sec 0m/sec 0 0 - Left ECA: Left ECA 3.52m/sec - Left vertebral: Left vertebral 0.15m/sec Velocity ratios: + +-----+ ! !R PSV! + +-----+ !Proximal ICA/prox CCA!2.87 ! + +-----+ CRITICAL FINDINGS - Reported to: RON Vargas 3EICU - 2024 - 1506 - Severe stenosis of the right internal carotid artery (prior right endarterectomy) and chronic total occlusion of the left internal carotid artery [facility] Vascular Lab is accredited with the [facility] Commission for the Accreditation of Vascular Laboratories (ICAVL) Prepared and Electronically Authenticated Karina Watson Confirmed 10/28/2024 20:45 Procedure Note Karina Watson DO - 10/28/2024 [facility] Cardiovascular Services Noninvasive Vascular Laboratory [address] [place] [id number] Noninvasive Vascular Lab Cerebrovascular Exam Carotid Duplex Patient: Dalton Douglas Study ID: US CAROTID DOPPL Gender: Poli : 1950 Age: 74 Room: Height: Weight: 74.8kg BSA: Pt status: Inpatient Study Date: 2024 Study Time: 02:07:09 PM BSA: Ordering: Blaze Galvin Interpreting:Karina Watson Building Drafter: Vega So Indications: Pre-Op workup for CABG. Pt has hx of right carotid endarterectomy performed in [place] approximately 2 to 3 years ago perpt verbal history. Summary Impression: 1. Study demonstrates velocities consistent with a >70% stenosis involvingthe right internal carotid artery but ratio more consistent with 50-69%. Elevated velocities may be secondary to compensatory flow secondaryto contralateral occlusion. 2. 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 3. The right vertebral artery segment visualized is patent withantegrade flow. The left vertebral artery visualized had antegrade flow with an abnormal low velocity, blunted flow signal. Recommendations: Consider CTA if concern for significant stenosisremains. Study data: Carotid duplex study. Complete study and Doppler flowstudy including spectral analysis, color and whitney scale imaging. Weight:74.8kg. Weight: 165lb. Location: Bedside. Patient status: Inpatient.Study status: STAT. Procedure: A vascular evaluation was performed. Imagequality was good. Arterial flow: - Right CCA proximal: Right CCA proximal 0.99m/sec 0.23m/sec - Right CCA distal: Right CCA distal 1.22m/sec 0.37m/sec - Right ICA proximal: Right ICA proximal 2.83m/sec 1.01m/sec 2.32 2.69 - Right ICA distal: Right ICA distal 1.47m/sec 0.61m/sec 1.21 1.62 - Right ECA: Right ECA 4.54m/sec - Right vertebral: Right vertebral 0.93m/sec - Left CCA proximal: Left CCA proximal 1.13m/sec 0.08m/sec - Left CCA distal: Left CCA distal 1.21m/sec 0.1m/sec - Left ICA proximal: Left ICA proximal 0m/sec 0m/sec 0 0 - Left ECA: Left ECA 3.52m/sec - Left vertebral: Left vertebral 0.15m/sec Velocity ratios: + +-----+ ! !R PSV! + +-----+ !Proximal ICA/prox CCA!2.87 ! + +-----+ CRITICAL FINDINGS - Reported to: RON Vargas 3EICU - 10/25/20241506 - Severe stenosis of the right internal carotid artery (prior right endarterectomy) and chronic total occlusion of the left internalcarotid artery [facility] Vascular Lab is accredited with theIntersocietal Commission for the Accreditation of Vascular Laboratories (ICAVL) Prepared and Electronically Authenticated Karina Watson Confirmed 10/28/2024 20:45 us Blaze Gardner-Dalton Galvin DO ORDERABLES Final Result * US ELIE DOPPLER MAPPING LEGS BILAT (2024 4:24 PM CDT) Anatomical Region Laterality Modality Lower Extremity Ultrasound 2024 3:05 PM CDT Narrative 10/28/2024 8:50 PM CDT [facility] Cardiovascular Services Noninvasive Vascular Laboratory [address] [place] [address] Noninvasive Vascular Lab Vein Mapping Complete Lower Extremity Patient: Dalton Douglas Study ID: US ELIE DOPPLER M Gender: M : 1950 Age: 74 Room: Height: Weight: 74.8kg BSA: Pt status: Inpatient Study Date: 2024 Study Time: 03:05:34 PM BSA: Ordering: Blaze Galvin Interpreting:Karina Watson Building Drafter: Vega So Indications: CABG conduit. Summary Doppler venous of the lower extremities demonstrates flow which is spontaneous, phasic and augments well. Competence is demonstrated. No pulsatility is noted. Imaging of the bilateral extremities demonstrated compressibility for the deep and superficial systems. No intraluminal echoes are noted. Impression: 1. No evidence of deep or superficial venous thrombosis involving the right lower extremity and left lower extremity. 2. The greater and lesser saphenous veins bilaterally demonstrate chronic thickening. 3. Vein diameters as outlined in chart below. Study data: Bilateral lower extremity vein mapping Vessel mapping. Weight: 74.8kg. Weight: 164.9lb. Location: Bedside. Patient status: Inpatient. Study status: Routine. Procedure: A vascular evaluation was performed. Image quality was good. Venous flow and imaging: - Right great saphenous Patent; Compressible Chronically thickened. - Right small saphenous Patent; Compressible Chronically thickened. - Left great saphenous Patent; Compressible Chronically thickened. - Left small saphenous Patent; Compressible Chronically thickened. - Right common femoral Patent; Normal phasicity; spontaneous; compressible; normal augmentation - Right profunda femoral Patent; Normal phasicity; spontaneous; compressible; normal augmentation - Right femoral Patent; Normal phasicity; spontaneous; compressible; normal augmentation - Right popliteal Patent; Normal phasicity; spontaneous; compressible; normal augmentation - Right small saphenous Patent; Compressible - Right posterior tibial Patent; Compressible; normal augmentation - Right peroneal Patent; Compressible; normal augmentation - Right great saphenous Patent; Compressible - Left common femoral Patent; Normal phasicity; spontaneous; compressible; normal augmentation - Left profunda femoral Patent; Normal phasicity; spontaneous; compressible; normal augmentation - Left femoral Patent; Normal phasicity; spontaneous; compressible; normal augmentation - Left popliteal Patent; Normal phasicity; spontaneous; compressible; normal augmentation - Left small saphenous Patent; Compressible - Left posterior tibial Patent; Compressible; normal augmentation - Left peroneal Patent; Compressible; normal augmentation - Left great saphenous Patent; Compressible - Right great saphenous (thigh) prox 3.90mm - Right great saphenous (thigh) mid 1.30mm - Right great saphenous (knee) 1.30mm - Right great saphenous (knee) 1.20mm - Right great saphenous (calf) mid 1.20mm - Right small saphenous (calf) prox 1.80mm - Right small saphenous (calf) mid 1.80mm - Right small saphenous (calf) distal 1.00mm - Left great saphenous (thigh) prox 3.40mm - Left great saphenous (thigh) mid 2.10mm - Left great saphenous (above knee) 1.40mm - Left great saphenous (below knee) 1.50mm - Left great saphenous (calf) mid 1.50mm - Left small saphenous (calf) prox 2.30mm - Left small saphenous (calf) mid 1.00mm - Left small saphenous (calf) distal 1.20mm [facility] Vascular Lab is accredited with the [facility] Commission for the Accreditation of Vascular Laboratories (ICAVL) Prepared and Electronically Authenticated Karina Watson Confirmed 10/28/2024 20:50 Procedure Note Karina Watson DO - 10/28/2024 [facility] Cardiovascular Services Noninvasive Vascular Laboratory [address] [place] [id number] Noninvasive Vascular Lab Vein Mapping Complete Lower Extremity Patient: Dalton Douglas Study ID: US ELIE DOPPLER M Gender: M : 1950 Age: 74 Room: Height: Weight: 74.8kg BSA: Pt status: Inpatient Study Date: 2024 Study Time: 03:05:34 PM BSA: Ordering: Blaze Galvin Interpreting:Karina Watson Building Drafter: Vega So Indications: CABG conduit. Summary Doppler venous of the lower extremities demonstrates flow which is spontaneous, phasic and augments well. Competence is demonstrated. No pulsatility is noted. Imaging of the bilateral extremities demonstrated compressibility for the deep and superficial systems. No intraluminalechoes are noted. Impression: 1. No evidence of deep or superficial venous thrombosis involving theright lower extremity and left lower extremity. 2. The greater and lesser saphenous veins bilaterally demonstratechronic thickening. 3. Vein diameters as outlined in chart below. Study data: Bilateral lower extremity vein mapping Vessel mapping. Weight: 74.8kg. Weight: 164.9lb. Location: Bedside. Patient status: Inpatient. Study status: Routine. Procedure: A vascular evaluationwas performed. Image quality was good. Venous flow and imaging: - Right great saphenous Patent; Compressible Chronically thickened. - Right small saphenous Patent; Compressible Chronically thickened. - Left great saphenous Patent; Compressible Chronically thickened. - Left small saphenous Patent; Compressible Chronically thickened. - Right common femoral Patent; Normal phasicity; spontaneous;compressible; normal augmentation - Right profunda femoral Patent; Normal phasicity; spontaneous;compressible; normal augmentation - Right femoral Patent; Normal phasicity; spontaneous; compressible;normal augmentation - Right popliteal Patent; Normal phasicity; spontaneous; compressible;normal augmentation - Right small saphenous Patent; Compressible - Right posterior tibial Patent; Compressible; normal augmentation - Right peroneal Patent; Compressible; normal augmentation - Right great saphenous Patent; Compressible - Left common femoral Patent; Normal phasicity; spontaneous;compressible; normal augmentation - Left profunda femoral Patent; Normal phasicity; spontaneous;compressible; normal augmentation - Left femoral Patent; Normal phasicity; spontaneous; compressible;normal augmentation - Left popliteal Patent; Normal phasicity; spontaneous; compressible;normal augmentation - Left small saphenous Patent; Compressible - Left posterior tibial Patent; Compressible; normal augmentation - Left peroneal Patent; Compressible; normal augmentation - Left great saphenous Patent; Compressible - Right great saphenous (thigh) prox 3.90mm - Right great saphenous (thigh) mid 1.30mm - Right great saphenous (knee) 1.30mm - Right great saphenous (knee) 1.20mm - Right great saphenous (calf) mid 1.20mm - Right small saphenous (calf) prox 1.80mm - Right small saphenous (calf) mid 1.80mm - Right small saphenous (calf) distal 1.00mm - Left great saphenous (thigh) prox 3.40mm - Left great saphenous (thigh) mid 2.10mm - Left great saphenous (above knee) 1.40mm - Left great saphenous (below knee) 1.50mm - Left great saphenous (calf) mid 1.50mm - Left small saphenous (calf) prox 2.30mm - Left small saphenous (calf) mid 1.00mm - Left small saphenous (calf) distal 1.20mm [facility] V[facility] Lab is accredited with theIntersocietal Commission for the Accreditation of Vascular Laboratories (ICAVL) Prepared and Electronically Authenticated Karina Watson Confirmed 10/28/2024 20:50 Blaze Galvin [facility] ORDERABLES Final Result * VERIFICATION BLOOD GROUP (2024 3:12 PM CDT) ABO GROUP A 2024 4:01 PM CDT [facility] RH (D) TYPE Positive 2024 4:01 PM CDT [facility] Blood Venipuncture / Unknown 2024 3:12 PM CDT 2024 3:21 PM CDT Blaze Galvin BLOOD BANK ORDERABLES Final Result [facility] CLIA#[id number] [address] [place] [id number], * TYPE AND SCREEN (2024 2:04 PM CDT) ABO GROUP A 2024 3:38 PM CDT [facility] [place] RH (D) TYPE Positive 2024 3:38 PM CDT [facility] [place] ANTIBODY SCREEN Negative 2024 3:38 PM CDT [facility] Blood Venipuncture / Unknown 2024 2:04 PM CDT 2024 2:15 PM CDT Jennifer Palmer [facility] BLOOD BANK ORDERABLES Ed ited Result - Final Performing Organization Address City/[facility]/ZIP Co de Phone Number [facility] CLIA#[id number] [facility] [phone] * (ABNORMAL) HEMOGLOBIN A1C (2024 2:04 PM CDT) Pathologist [facility] HEMOGLOBIN A1C 5.7(H) <=5.6 % 10/27/2024 10:27 AM CDT [facility] EST. AVG GLUCOSE, A1C 117 mg/dL 10/27/2024 10:27 AM CDT [facility] Blood Venipuncture / Unknown 2024 2:04 PM CDT 2024 2:19 PM CDT Narrative [facility] - 10/27/2024 10:27 AM CDT HGB A1C INTERPRETATION NORMAL: <5.7% PRE-DIABETES: 5.7 - 6.4% DIABETES: 6.5% OR GREATER Blaze Galvin DO CHEMISTRY ORDERABLES Final Result Performing Organization Address City/[facility]/ZIP Co de Phone Number [facility] CLIA # [id number] [address] [facility] [place] [address] * COMPREHENSIVE METABOLIC PANEL (2024 2:04 PM [facility] SODIUM 139 136 - 145 mmol/L 2024 3:06 PM [facility] POTASSIUM 4.0 3.5 - 5.1 mmol/L 2024 3:06 PM [facility] CHLORIDE 106 98 - 107 mmol/L 2024 3:06 PM [facility] CO2 22 22 - 29 mmol/L 2024 3:06 PM [facility] CALCIUM 9.3 8.8 - 10.2 mg/dL 2024 3:06 PM [facility] BUN 13 8 - 23 mg/dL 2024 3:06 PM [facility] CREATININE 1.01 0.67 - 1.17 mg/dL 2024 3:06 PM [facility] Comment:The GFR result is no t clinically significant on patients <18 or >70 years of age. GLUCOSE 96 74 - 99 mg/dL 2024 3:06 PM [facility] TOTAL PROTEIN 6.6 6.4 - 8.3 g/dL 2024 3:06 PM [facility] ALBUMIN 3.8 3.5 - 5.2 g/dL 2024 3:06 PM [facility] BILIRUBIN TOTAL 0.4 0.0 - 1.0 mg/dL 2024 3:06 PM [facility] ALKALINE PHOSPHATASE 69 40 - 129 U/L 2024 3:06 PM [facility] AST 14 10 - 50 U/L 2024 3:06 PM [facility] ALT 11 <=50 U/L 2024 3:06 PM [facility] GFR >60 mL/min/1.7 3 sq meter 2024 3:06 PM [facility] Comment:eGFR calculated with 2020 CKD-EPI equation. Vegetarian diet, extremely high or low muscle mass, and may affect results. Cystatin C with Glomerular Filtration Rate is a suitable alternative for these patients. ANION GAP 11 9 - 20 mmol/L 2024 3:06 PM CDT [facility] Blood Venipuncture / Unknown 2024 2:04 PM CDT 2024 2:29 PM CDT Jennifer Angelashner [employer] CHEMISTRY ORDERABLES Fin al Result [facility] CLIA # [id number] [address] [place] [address] [id number] * ECHOCARDIOGRAM W/ CONTRAST AGENT (2024 1:06 PM CDT) EJECTION FRACTION 64 INTERFACE SYSTEM 2024 12:3 1 PM CDT Narrative INTERFACE SYSTEM - 2024 1:43 PM CDT [facility] Cardiovascular Services Echocardiography Laboratory [address] [place] [address] Transthoracic Echocardiography (Report amended ) Patient: Dalton Douglas Study ID: ECHO COMPLETE - Gender: M : 1950 Age: 74 Room: [facility] Study Date: 2024 Pt Status: Inpatient Study Time: 12:31:31 PM CSN #: [id number] Ordering:Blaze Galvin Building Drafter: Jeanne Francisco Indications and History: Cardiac Etiology: General; Chest pain. Summary and Conclusion: - Left ventricle: The cavity size is normal. Wall thickness is increased in a pattern of mild LVH. There is mild focal basal hypertrophy of the septum. Global systolic function is normal. The estimated ejection fraction is 60%. For Epic reporting: the left ventricular ejection fraction is 64% by biplane method of disks. No diagnostic regional wall motion abnormality identified. Doppler parameters are consistent with abnormal left ventricular relaxation (grade 1 diastolic dysfunction). - Right ventricle: The cavity size is normal. Systolic function is normal. Systolic pressure is within the normal range. - Aortic valve: There is trivial stenosis. - Mitral valve: There is mild regurgitation. - Tricuspid valve: There is mild-moderate regurgitation. - Pulmonic valve: There is mild regurgitation. Procedure information: No prior study is available for comparison. Study status: Routine. Procedure: A transthoracic echocardiogram was performed. Image quality was adequate. Scanning was performed from the parasternal, apical, subcostal, and suprasternal notch acoustic windows. Intravenous contrast (Definity) was administered. There were no complications. There were no contrast reactions. Study components: M-mode, 2D, complete spectral Doppler, and color Doppler. Height: 167.6cm. Height: 66in. Weight: 74.8kg. Weight: 164.9lb. BMI: 26.6kg/m^2. BSA: 1.88m^2. Blood pressure: 185/86 Study date: 2024. Study time: 12:31 PM. Location: ICU/CCU Cardiac Anatomy: LEFT VENTRICLE: The cavity size is normal. Wall thickness is increased in a pattern of mild LVH. There is mild focal basal hypertrophy of the septum. Global systolic function is normal. The estimated ejection fraction is 60%. For Epic reporting: the left ventricular ejection fraction is 64% by biplane method of disks. No diagnostic regional wall motion abnormality identified. Doppler parameters are consistent with abnormal left ventricular relaxation (grade 1 diastolic dysfunction). RIGHT VENTRICLE: The cavity size is normal. Systolic function is normal. Systolic pressure is within the normal range. LEFT ATRIUM: The atrium is normal in size. RIGHT ATRIUM: The atrium is normal in size. ATRIAL SEPTUM: No obvious PFO or ASD identified by 2D imaging and color Doppler. AORTIC VALVE: The valve is trileaflet. The leaflets are normal thickness. Mobility is not restricted. There is trivial stenosis. There is trivial regurgitation. MITRAL VALVE: Structurally normal valve. Mobility is not restricted. No evidence for prolapse. There is no evidence for stenosis. There is mild regurgitation. TRICUSPID VALVE: Structurally normal valve. Mobility is unrestricted. There is no evidence for stenosis. There is mild-moderate regurgitation. PULMONIC VALVE: Not well visualized. The valve appears to be grossly normal. There is no evidence for stenosis. There is mild regurgitation. PERICARDIUM: There is no pericardial effusion. AORTA: Aortic root: The root is not dilated. Aortic arch: The vessel is not dilated. INTRACARDIAC MASS THROMBUS: No apparent intracavitary masses or thrombi detected. Measurements Left ventricle Value Right ventricle Value ESD, LAX 2.9 cm KATERIN, LAX 3.7 cm ESD/bsa, LAX 1.5 cm/m^2 KATERIN minor ax, A4C base 3.2 cm FS, LAX 35 % KATERIN minor ax, A4C mid 2.3 cm FS, LAX chord 35 % KATERIN 3.7 cm ESD major ax, A4C 7.0 cm TAPSE, 2D 1.7 cm ESD/bsa major ax, A4C 3.7 cm/m^2 TAPSE, MM 1.7 cm KATERIN minor ax, A4C 7.0 cm S' lateral 10.9 cm/sec KATERIN/bsa minor ax, A4C 3.7 cm/m^2 SHANNAN, A4C 36.6 cm^2 Left atrium Value RUTH ANN, A4C 21.1 cm^2 AP dim, ES 4.1 cm FAC, A4C 42 % AP dim index, ES 2.2 cm/m^2 KATERIN major ax, A2C 8.0 cm Area ES, A4C 19 cm^2 KATERIN/bsa major ax, A2C 4.3 cm/m^2 SI dim, A2C 5.0 cm SHANNAN, A2C 34.6 cm^2 Vol, ES, 1-p A4C 43 ml RUTH ANN, A2C 18.3 cm^2 Vol/bsa, ES, 1-p A4C 23 ml/m^2 FAC, A2C 47 % Vol, ES, 1-p A2C 44 ml IVS, ED 1.1 cm Vol/bsa, ES, 1-p A2C 24 ml/m^2 PW, ED 1.0 cm IVS/PW, ED 1.13 Right atrium Value EDV 89 ml Area, ES, A4C 10 cm^2 ESV 31 ml EF 65 % Aortic valve Value EDV/bsa 47 ml/m^2 Peak v, S 162 cm/sec ESV/bsa 17 ml/m^2 Peak grad, S 10 mm Hg EDV, 1-p A2C 117 ml LVOT/AV, Vpeak ratio 0.65 ESV, 1-p A2C 77 ml EL, Vmax 2.04 cm^2 EF, 1-p A2C 66 % EL/bsa, Vmax 1.08 cm^2/m^2 SV, 1-p A2C 58 ml EDV/bsa, 1-p A2C 62 ml/m^2 Mitral valve Value ESV/bsa, 1-p A2C 41 ml/m^2 Mean v, D 78.1 cm/sec SV/bsa, 1-p A2C 30.7 ml/m^2 Peak E 74.9 cm/sec EDV, 1-p A4C 136 ml Peak A 102 cm/sec ESV, 1-p A4C 53 ml VTI leaflet coapt 24.1 cm EF, 1-p A4C 61 % Decel slope 402 cm/s^2 SV, 1-p A4C 63 ml Decel time 194 ms EDV/bsa, 1-p A4C 72 ml/m^2 PHT 69 ms ESV/bsa, 1-p A4C 28 ml/m^2 Mean grad, D 3 mm Hg SV/bsa, 1-p A4C 34 ml/m^2 Peak grad, D 2 mm Hg EDV, 2-p 130 ml Peak E/A ratio 0.7 ESV, 2-p 47 ml E-VTI 24.1 cm EF, 2-p 64 % A-VTI 24.1 cm SV, 2-p 84 ml VTI E/A 1.0 EDV/bsa, 2-p 69 ml/m^2 MVA, PHT 3.19 cm^2 ESV/bsa, 2-p 25 ml/m^2 MVA/bsa, PHT 1.7 cm^2/m^2 SV/bsa, 2-p 44.4 ml/m^2 Christina VTI 24.1 cm EDV, MM Teich. 89 ml Vena contracta width 3.7 cm EF, MM Teich. 65 % EDV/bsa, MM Teich. 47 ml/m^2 Tricuspid valve Value EF, MM on 2D Teich. 65 % TR vena contracta width 2.0 cm E', lat christina, TDI 9.1 cm/sec Peak RV-RA grad, S 26 mm Hg E/e', lat christina, TDI 10 E', med christina, TDI 7.7 cm/sec Aortic root Value E/e', med christina, TDI 10 S-T junct diam, ED 2.4 cm E', avg, TDI 8.4 cm/sec S-T junct diam/bsa, ED 1.3 cm/m^2 E/e', avg, TDI 9 Ascending aorta Value LVOT Value AAo AP diam, S 3.4 cm Diam, S 2.0 cm AAo AP diam/bsa, S 1.8 cm/m^2 Area 3.1 cm^2 Peak alejandro, S 105 cm/sec Descending aorta Value Peak grad, S 4 mm Hg Lukasz diam 2.3 cm Legend: (L) and (H) clayton values outside specified reference range. [facility] Echo Labs are accredited with the Intersocietal Accreditation Commission - Echocardiography. Amended Barney Juarez MD Confirmed 2024 13:44 Procedure Note Barney Juarez MD - 2024 [facility] Cardiovascular Services Echocardiography Laboratory [address] [place] [id number] Transthoracic Echocardiography (Report amended ) Patient: Dalton Douglas Study ID: ECHOCOMPLETE - Gender: M : 1950 Age: 74 Room: [facility] Study Date: 2024 Pt Status: Inpatient Study Time: 12:31:31 PM [facility] #: [id number] Ordering:Blaze Galvin Building Drafter: Jeanne Francisco Indications and History: Cardiac Etiology: General; Chest pain. Summary and Conclusion: - Left ventricle: The cavity size is normal. Wall thickness is increasedin a pattern of mild LVH. There is mild focal basal hypertrophy of theseptum. Global systolic function is normal. The estimated ejection fraction is60%. For Epic reporting: the left ventricular ejection fraction is 64% bybiplane method of disks. No diagnostic regional wall motion abnormalityidentified. Doppler parameters are consistent with abnormal left ventricularrelaxation (grade 1 diastolic dysfunction). - Right ventricle: The cavity size is normal. Systolic function isnormal. Systolic pressure is within the normal range. - Aortic valve: There is trivial stenosis. - Mitral valve: There is mild regurgitation. - Tricuspid valve: There is mild-moderate regurgitation. - Pulmonic valve: There is mild regurgitation. Procedure information: No prior study is available for comparison.Study status: Routine. Procedure: A transthoracic echocardiogram wasperformed. Image quality was adequate. Scanning was performed from the parasternal, apical, subcostal, and suprasternal notch acoustic windows. Intravenous contrast (Definity) was administered. There were no complications. Therewere no contrast reactions. Study components: M-mode, 2D, complete spectral Doppler, and color Doppler. Height: 167.6cm. Height: 66in. Weight: 74.8kg. Weight: 164.9lb. BMI: 26.6kg/m^2. BSA: 1.88m^2.Blood pressure: 185/86 Study date: 2024. Study time: 12:31 PM. Location: ICU/CCU Cardiac Anatomy: LEFT VENTRICLE: The cavity size is normal. Wall thickness is increased gela pattern of mild LVH. There is mild focal basal hypertrophy of theseptum. Global systolic function is normal. The estimated ejection fraction is60%. For Epic reporting: the left ventricular ejection fraction is 64% bybiplane method of disks. No diagnostic regional wall motion abnormalityidentified. Doppler parameters are consistent with abnormal left ventricularrelaxation (grade 1 diastolic dysfunction). RIGHT VENTRICLE: The cavity size is normal. Systolic function isnormal. Systolic pressure is within the normal range. LEFT ATRIUM: The atrium is normal in size. RIGHT ATRIUM: The atrium is normal in size. ATRIAL SEPTUM: No obvious PFO or ASD identified by 2D imaging and color Doppler. AORTIC VALVE: The valve is trileaflet. The leaflets are normalthickness. Mobility is not restricted. There is trivial stenosis. There istrivial regurgitation. MITRAL VALVE: Structurally normal valve. Mobility is not restricted.No evidence for prolapse. There is no evidence for stenosis. There ismild regurgitation. TRICUSPID VALVE: Structurally normal valve. Mobility isunrestricted. There is no evidence for stenosis. There is mild-moderateregurgitation. PULMONIC VALVE: Not well visualized. The valve appears to be grosslynormal. There is no evidence for stenosis. There is mild regurgitation. PERICARDIUM: There is no pericardial effusion. AORTA: Aortic root: The root is not dilated. Aortic arch: The vessel is not dilated. INTRACARDIAC MASS THROMBUS: No apparent intracavitary masses or thrombi detected. Measurements Left ventricle Value Right ventricle Value ESD, LAX 2.9 cm KATERIN, LAX 3.7 cm ESD/bsa, LAX 1.5 cm/m^2 KATERIN minor ax, A4C base 3.2 cm FS, LAX 35 % KATERIN minor ax, A4C mid 2.3 cm FS, LAX chord 35 % KATERIN 3.7 cm ESD major ax, A4C 7.0 cm TAPSE, 2D 1.7 cm ESD/bsa major ax, A4C 3.7 cm/m^2 TAPSE, MM 1.7 cm KATERIN minor ax, A4C 7.0 cm S' lateral 10.9cm/sec KATERIN/bsa minor ax, A4C 3.7 cm/m^2 SHANNAN, A4C 36.6 cm^2 Left atrium Value RUTH ANN, A4C 21.1 cm^2 AP dim, ES 4.1 cm FAC, A4C 42 % AP dim index, ES 2.2cm/m^2 KATERIN major ax, A2C 8.0 cm Area ES, A4C 19cm^2 KATERIN/bsa major ax, A2C 4.3 cm/m^2 SI dim, A2C 5.0 cm SHANNAN, A2C 34.6 cm^2 Vol, ES, 1-p A4C 43 ml RUTH ANN, A2C 18.3 cm^2 Vol/bsa, ES, 1-p A4C 23ml/m^2 FAC, A2C 47 % Vol, ES, 1-p A2C 44 ml IVS, ED 1.1 cm Vol/bsa, ES, 1-p A2C 24ml/m^2 PW, ED 1.0 cm IVS/PW, ED 1.13 Right atrium Value EDV 89 ml Area, ES, A4C 10cm^2 ESV 31 ml EF 65 % Aortic valve Value EDV/bsa 47 ml/m^2 Peak v, S 162cm/sec ESV/bsa 17 ml/m^2 Peak grad, S 10 mmHg EDV, 1-p A2C 117 ml LVOT/AV, Vpeak ratio 0.65 ESV, 1-p A2C 77 ml EL, Vmax 2.04cm^2 EF, 1-p A2C 66 % EL/bsa, Vmax 1.08cm^2/m^2 SV, 1-p A2C 58 ml EDV/bsa, 1-p A2C 62 ml/m^2 Mitral valve Value ESV/bsa, 1-p A2C 41 ml/m^2 Mean v, D 78.1cm/sec SV/bsa, 1-p A2C 30.7 ml/m^2 Peak E 74.9cm/sec EDV, 1-p A4C 136 ml Peak A 102cm/sec ESV, 1-p A4C 53 ml VTI leaflet coapt 24.1 cm EF, 1-p A4C 61 % Decel slope 402cm/s^2 SV, 1-p A4C 63 ml Decel time 194 ms EDV/bsa, 1-p A4C 72 ml/m^2 PHT 69 ms ESV/bsa, 1-p A4C 28 ml/m^2 Mean grad, D 3 mmHg SV/bsa, 1-p A4C 34 ml/m^2 Peak grad, D 2 mmHg EDV, 2-p 130 ml Peak E/A ratio 0.7 ESV, 2-p 47 ml E-VTI 24.1 cm EF, 2-p 64 % A-VTI 24.1 cm SV, 2-p 84 ml VTI E/A 1.0 EDV/bsa, 2-p 69 ml/m^2 MVA, PHT 3.19cm^2 ESV/bsa, 2-p 25 ml/m^2 MVA/bsa, PHT 1.7cm^2/m^2 SV/bsa, 2-p 44.4 ml/m^2 Christina VTI 24.1 cm EDV, MM Teich. 89 ml Vena contracta width 3.7 cm EF, MM Teich. 65 % EDV/bsa, MM Teich. 47 ml/m^2 Tricuspid valve Value EF, MM on 2D Teich. 65 % TR vena contracta width 2.0 cm E', lat christina, TDI 9.1 cm/sec Peak RV-RA grad, S 26 mmHg E/e', lat christina, TDI 10 E', med christina, TDI 7.7 cm/sec Aortic root Value E/e', med christina, TDI 10 S-T junct diam, ED 2.4 cm E', avg, TDI 8.4 cm/sec S-T junct diam/bsa, ED 1.3cm/m^2 E/e', avg, TDI 9 Ascending aorta Value LVOT Value AAo AP diam, S 3.4 cm Diam, S 2.0 cm AAo AP diam/bsa, S 1.8cm/m^2 Area 3.1 cm^2 Peak alejandro, S 105 cm/sec Descending aorta Value Peak grad, S 4 mm Hg Lukasz diam 2.3 cm Legend: (L) and (H) clayton values outside specified reference range. [facility] are accredited with [facility] Accreditation Commission - Echocardiography. 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
--- OUTSIDE RECORDS SUMMARY | 2025-01-05 11:00 | XMS_ITS | Encounter Summary ---
[facility] Address 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
--- OUTSIDE RECORDS SUMMARY | 2025-01-05 11:00 | XMS_ITS | Encounter Summary ---
Author Organization [facility] Address 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
== END 2025-01-05 11:30 | disposition home or self-care (01) ==
PROVIDERS: Emergency Provider Emergency Medicine; PCP Family Medicine
DX: Z04.1 Encounter for examination and observation following transport accident (principal); Z79.82 Long term (current) use of aspirin; Z95.1 Presence of aortocoronary bypass graft; Z87.891 Personal history of nicotine dependence; Z86.73 Personal history of transient ischemic attack (TIA), and cerebral infarction without residual deficits; I10 Essential (primary) hypertension
CPT/HCPCS: 71045; 93005; 99284

== ENCOUNTER 2025-02-14 13:14 | Outpatient (CLI) | payer MEDICARE, SELFPAY ==
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
[2025-02-14 13:56] LABS: Hematocrit 42.1 % (37-53); Hemoglobin 14.00 g/dL (11.27-16.99); Mean Corpuscular HGB Conc 33.3 g/dL (30-55); Mean Corpuscular Hemoglobin 29.2 pg (27-33); Mean Corpuscular Volume 87.9 fl (82-101); Nucleated Red Blood Cells % 0 %; Platelet Count 265 10^3/cmm (157-399); Red Blood Count 4.79 10^6/uL (3.85-5.65); White Blood Count 6.43 10^3/uL (3.29-11.43)
[2025-02-14 14:16] LABS: Alanine Aminotransferase 12 U/L (0-41); Albumin Level 4.3 g/dL (3.5-5.2); Alkaline Phosphatase 75 U/L (40-130); Anion Gap 11.4 (5-19); Aspartate Amino Transferase 13 U/L (0-40); Blood Urea Nitrogen 11 mg/dL (8-23); Calcium 9.5 mg/dL (8.5-10.5); Carbon Dioxide 29 mmol/L (22-29); Chloride 103 mmol/L (98-107); Cholesterol 124 mg/dL (0-200); Globulin 2.9 g/dL (1.3-4.6); Glucose 100 mg/dL (65-115); HDL Cholesterol 43 mg/dL (60-100); Osmolality Calculated 287 mOsm/kg (285-295); Potassium 4.4 mmol/L (3.5-5.1); Sodium 139 mmol/L (136-145); Total Protein 7.2 g/dL (6.6-8.7); Triglycerides 88 mg/dL (0-150)
== END 2025-02-14 13:15 | disposition home or self-care (01) ==
PROVIDERS: PCP Family Medicine; Visit Provider Family Medicine
DX: I10 Essential (primary) hypertension (principal); E78.00 Pure hypercholesterolemia, unspecified; M54.6 Pain in thoracic spine; S29.9XXA Unspecified injury of thorax, initial encounter; X58.XXXA Exposure to other specified factors, initial encounter
CPT/HCPCS: 36415; 72072; 80053; 80061; 85025

== ENCOUNTER → 2025-02-27 12:52 | Outpatient (BNVA) | payer MEDICARE, SELFPAY | PROVIDERS: PCP Family Medicine; Visit Provider Internal Medicine | DX: I25.10 Atherosclerotic heart disease of native coronary artery without angina pectoris (principal); E78.00 Pure hypercholesterolemia, unspecified; I10 Essential (primary) hypertension | CPT/HCPCS: 99214 ==